=== PATIENT | female | born 1935 | race Caucasian/White ===

== ENCOUNTER 2017-10-10 16:36 | Emergency (ER) | payer MEDICARE, BC ==
[~2017-10-10] VITALS: Wt 72.6 kg
[~2017-10-10 16:36] MED LIST: ALDACTONE25 MG PO; ANTIVERT12.5 MG; ASPIR-LOW81 MG PO; B COMPLEX1 TA3 PO; BENADRYL25 MG PO; BENTYL10 MG PO; BONIVA; BONIVA1 MG/ML SC; BONIVA150 MG PO; CALCIUM 500500 M2 PO; CEPHALEXIN500 M1 PO; CIPRO500 MG PO; DEMEROL50 MG PO; DIOVAN320 MG PO; ETOLDOLAC400 MG PO; FOLIC ACID1 MG PO; GABAPENTIN100 M1 PO; KEFLEX500 MG PO; LASIX; LASIX20 MG PO; LEFLUNOMIDE20 M1 PO; LEUCOVORIN CALCI5 MG PO; METHOTREXATE2.5 MG PO; NEURONTIN100 MG PO; NEURONTIN300 MG PO; NEXIUM40 MG PO; NORCO 5-325 TA1 EACH PO; PREDNISONE10 MG PO; REMICADE100 MG IV; SYNTHROID; SYNTHROID,LEVO50 MCG PO; SYNTHROID0.05 MG PO; TEKTURNA150 MG PO; TEKTURNA300 MG PO; TOPROL XL25 MG PO; TOPROL XL50 MG PO; TYLENOL ARTHRI650 MG PO; TYLENOL PM EXTR1 TA1 PO; TYLENOL325 M2 PO; VITAMIN C500 MG PO; VITAMIN D400 I1 PO; VITAMIN E400 I1 PO; WELLCOVORIN5 MG PO
[2017-10-10 16:41] VITALS: BP 122/77
[2017-10-10] MEDS ORDERED: CYCLOBENZAPRINE5 M3 PO (19:05)
== END 2017-10-10 18:58 | disposition home or self-care (01) ==
LOC: ED 16:36
DX: M25.551 Pain in right hip (principal); M06.9 Rheumatoid arthritis, unspecified; Z98.890 Other specified postprocedural states; Z90.49 Acquired absence of other specified parts of digestive tract; Z79.82 Long term (current) use of aspirin; Z79.899 Other long term (current) drug therapy; Z88.8 Allergy status to other drugs, medicaments and biological substances; Z88.5 Allergy status to narcotic agent; Z88.6 Allergy status to analgesic agent

== ENCOUNTER 2017-11-21 12:24 | Emergency (ER) | payer MEDICARE, BC ==
[~2017-11-21] VITALS: Ht 165.1 cm; Wt 72.6 kg
[~2017-11-21 12:24] MED LIST changes: +CYCLOBENZAPRINE5 M3 PO
[2017-11-21 12:28] VITALS: BP 119/71
== END 2017-11-21 13:22 | disposition home or self-care (01) ==
LOC: ED 12:24
DX: S70.11XA Contusion of right thigh, initial encounter (principal); G89.29 Other chronic pain; M54.5 Low back pain; I10 Essential (primary) hypertension; E03.9 Hypothyroidism, unspecified; M06.9 Rheumatoid arthritis, unspecified; Z98.890 Other specified postprocedural states; Z79.82 Long term (current) use of aspirin; Z79.899 Other long term (current) drug therapy; Z90.49 Acquired absence of other specified parts of digestive tract; Z88.8 Allergy status to other drugs, medicaments and biological substances; Z88.1 Allergy status to other antibiotic agents; Z88.6 Allergy status to analgesic agent; Z88.5 Allergy status to narcotic agent; W19.XXXA Unspecified fall, initial encounter; Y93.89 Activity, other specified; Y92.89 Other specified places as the place of occurrence of the external cause; Y99.9 Unspecified external cause status

== ENCOUNTER 2017-12-28 09:04 | Emergency (ER) | payer MEDICARE, BC ==
[~2017-12-28] VITALS: Wt 54.4 kg
[2017-12-28] MEDS ORDERED: LIPITOR20 MG PO (09:17)
[2017-12-28] MEDS ORDERED: MOBIC15 MG PO (09:18)
[2017-12-28] MEDS ORDERED: NORCO 5-325 TA1 EACH PO (09:18)
[2017-12-28] MEDS ORDERED: POTASSIUM CHLO10 MEQ PO (09:19)
[2017-12-28] MEDS ORDERED: TYLENOL325 M2 PO (09:20)
[2017-12-28 09:47] LABS: BASO # 0.1 10*3/uL (0.0-0.1); BASO % 0.5 % (0.0-1.0); EOS # 0.2 10*3/uL (0.0-0.4); EOS % 1.2 % (1.0-4.0); HEMATOCRIT 35.9 % (37.0-47.0); LYMPH # 0.7 10*3/uL (1.3-4.4); LYMPH % 4.4 % (27.0-41.0); MEAN CORPUSCULAR HGB 29.7 pg (27.0-31.0); MEAN CORPUSCULAR HGB CONC 30.6 g/dl (33.0-37.0); MEAN PLATELET VOLUME 10.2 fl (9.6-12.3); MONO # 0.6 10*3/uL (0.1-1.0); MONO % 3.9 % (3.0-9.0); NEUT # 13.5 10*3/uL (2.3-7.9); NEUT % 88.8 % (47.0-73.0); NUCLEATED RED BLOOD CELL 0.1 10*3/uL (0.0-0.0); NUCLEATED RED BLOOD CELL 0.3 % (0.0-0.0); PLATELET COUNT AUTOMATED 271 10*3/uL (130-400); RED CELL DISTRI WIDTH 17.2 % (0-14.5); WHITE BLOOD COUNT 15.2 10*3/uL (4.8-10.8)
[2017-12-28 09:56] LABS: INTERNATIONAL NORM RATIO 0.9 (2.0-3.5)
[2017-12-28 10:03] LABS: ALBUMIN 2.5 gm/dl (3.1-4.5); ALKALINE PHOSPHATASE 63 U/L (45-117); BUN 16 mg/dl (7-24); CHLORIDE 104 mmol/L (98-107); CREATININE 0.84 mg/dL (0.55-1.02); LIPASE 167 U/L (73-393); POTASSIUM 3.6 mmol/L (3.5-5.1); SGOT/AST 25 IU/L (3-35); SGPT/ALT 27 U/L (12-78); SODIUM 139 mmol/L (136-145); TOTAL PROTEIN 6.3 gm/dL (6.4-8.2)
[2017-12-28 10:06] LABS: TROPONIN I 0.095 ng/ml (<0.045)
[2017-12-28 10:08] LABS: BILIRUBIN NEGATIVE (NEGATIVE); BLOOD NEGATIVE (NEGATIVE); CLARITY SL CLOUDY (CLEAR); COLOR YELLOW (YELLOW); GLUCOSE NEGATIVE (NEGATIVE); KETONE NEGATIVE (NEGATIVE); LEUKO ESTERASE 2+ (NEGATIVE); NITRITE NEGATIVE (NEGATIVE); UROBILINOGEN 0.2 E.U./dl (0.2-1.0)
[2017-12-28 10:19] LABS: BACTERIA 1+; EPITHELIAL CELLS 31-40; WBC 41-50 wbc/hpf (0-5)
[2017-12-28 14:42] VITALS: BP 123/63
== END 2017-12-28 14:50 | disposition short-term general hospital (02) ==
LOC: ED 09:04
PROVIDERS: Emergency Medicine
DX: A41.9 Sepsis, unspecified organism (principal); K57.80 Diverticulitis of intestine, part unspecified, with perforation and abscess without bleeding; N39.0 Urinary tract infection, site not specified; I10 Essential (primary) hypertension; E03.9 Hypothyroidism, unspecified; M06.9 Rheumatoid arthritis, unspecified; M81.0 Age-related osteoporosis without current pathological fracture; Z88.1 Allergy status to other antibiotic agents; Z88.8 Allergy status to other drugs, medicaments and biological substances; Z88.6 Allergy status to analgesic agent; Z79.899 Other long term (current) drug therapy; Z79.82 Long term (current) use of aspirin

== ENCOUNTER → 2018-03-11 | Outpatient (CLI) | payer MEDICARE, BC ==
[~2018-03-11] MED LIST changes: +CEFAZOLIN2 GM/100 M IV; +COUMADIN5 M2 PO; +LIPITOR20 MG PO; +MEGACE 40400 MG/10 PO; +MOBIC15 MG PO; +PAROXETINE20 MG PO; +POTASSIUM CHLO10 MEQ PO; +PROTONIX40 MG PO; +RISPERDAL0.25 MG PO; +SYNTHROID,LEVO88 MCG PO; -SYNTHROID0.05 MG PO; +VANCOMYCIN1 GM/1002 IV
== END | disposition home or self-care (01) ==
LOC: CT 07:54
DX: K86.89 Other specified diseases of pancreas (principal); M43.26 Fusion of spine, lumbar region; M47.897 Other spondylosis, lumbosacral region; N39.0 Urinary tract infection, site not specified; D64.9 Anemia, unspecified; E03.9 Hypothyroidism, unspecified; E78.5 Hyperlipidemia, unspecified; I48.91 Unspecified atrial fibrillation; E11.9 Type 2 diabetes mellitus without complications; I10 Essential (primary) hypertension; Z90.49 Acquired absence of other specified parts of digestive tract; Z93.3 Colostomy status

== ENCOUNTER 2018-03-20 21:31 | Inpatient (IN) | payer MEDICARE, BC ==
[~2018-03-20] VITALS: Ht 167.6 cm; Wt 70.0 kg
--- NOTE | ~2018-03-20 | PR ---
[place], [place] PROGRESS NOTE NAME: TEOFILO FERRARA UNIT #: [id number] ROOM: 422 DOCTOR: CHRISTIN VERDUGOSEPTEMBER BIRTHDATE: [birth year] DOS: 04/05/2018 SUBJECTIVE: The patient is being followed for an MRSA bacteremia, source not identified. Her BALDEMAR was negative. MRI of the lumbar spine did not reveal any infection. She also had a left knee aspiration and that culture was negative. She had a WBC tagged scan which did not show any localized site of infection. She remains on vancomycin and Ancef. She continues to have confusion and is a very poor historian and she is alert, responsive, eating chocolates and drinking Coke with her daughter. No nausea or vomiting. Her stool is per colostomy. She has been afebrile. No rashes. She does complain of pain of her entire left side. VITAL SIGNS: Show temperature 97.6, pulse 91, respirations 16, BP 115/58. LABORATORY DATA: Vancomycin trough 22.8, BUN 17, creatinine 0.93. PHYSICAL EXAMINATION: GENERAL: An 82-year-old pleasant female, confused, in no acute distress. HEENT: Normocephalic, no thrush. LUNGS: Clear to auscultation bilaterally. Respirations even and unlabored. HEART: Regular rhythm. No murmur appreciated. ABDOMEN: Soft, nondistended, nontender. Ostomy with stool. EXTREMITIES: No edema or deformities. Very mild effusion of the left knee. SKIN: Warm, dry, free of rashes. She does have a PICC in place. Dressing dry and intact. No signs of phlebitis, right upper extremity. ASSESSMENT: Methicillin-resistant Staphylococcus aureus bacteremia, etiology not identified. PLAN: At this point, she is to continue vancomycin and Ancef until 05/02/2018. She is to follow up with Dr. Rodriges as an outpatient. She is to be discharged in the next day or so. ALONDRA LUCINA WALLER [place], [place] PROGRESS NOTE NAME: TEOFILO FERRARA UNIT #: [id number] ROOM: 422 DOCTOR: CHRISTIN VERDUGOSEPTEMBER BIRTHDATE: [birth year] Hoa Rodriges MD CM:YOSELIN [id number] SEPTEMBER CHRISTIN VERDUGO 04/05/18 2035 interface
--- NOTE | ~2018-03-20 | PR ---
[place], [place] PROGRESS NOTE NAME: TEOFILO FERRARA UNIT #: [id number] ROOM: 422 DOCTOR: CHRISTIN VERDUGO,SEPTEMBER BIRTHDATE: [birth year] DOS: ADDENDUM Please flag that for co-signature by Dr. Rodriges. ALONDRA WALLER CNP Hoa Rodriges MD CM:YOSELIN [id number] ALONDRA WALLER CNP 04/05/182022 interface
--- NOTE | ~2018-03-20 | PR ---
[place], [place] PROGRESS NOTE NAME: TEOFILO FERRARA UNIT #: [id number] ROOM: 422 DOCTOR: ROQUE WILKINSNO MD BIRTHDATE: [birth year] DOS: 03/27/2018 SUBJECTIVE: The patient was seen today at her bedside, 03/27/2018, for followup of a BALDEMAR, which I did yesterday. She had the study done in order to evaluate an episode of bacteremia with MRSA. The source of this was never found. The BALDEMAR did not show any obvious evidence for endocarditis. The patient does not make [place] criteria for endocarditis either. The BALDEMAR was well tolerated and the patient denies any sore throat or sequelae. OBJECTIVE: VITAL SIGNS: Her pulse is 83 and regular, blood pressure 133/59. She is afebrile. NECK: Supple. She has no jugular distention. Carotids are full. LUNGS: Respirations are unlabored. Chest is clear. HEART: Has irregular rhythm and an S4 gallop, but no S3 or murmur. The PMI is not displaced. There is no precordial heave, lift or thrill. ABDOMEN: Soft and normally active. EXTREMITIES: Showed no edema aside from her left foot, which is mildly swollen. She had no scleral hemorrhages, subungual hemorrhages, or Randle spots. IMPRESSION: 1. Staph aureus bacteremia, etiology and source to be defined. 2. History of diverticular abscess requiring sigmoid resection and colostomy. 3. Type 2 non-ST elevation myocardial infarction during her hospitalization for a diverticular abscess. 4. Paroxysmal atrial fibrillation, first documented in 11/2017 with CHADS-VASc score of 6. The patient has had a DC cardioversion as of 12/10/2017. 5. Essential hypertension. 6. Type 2 diabetes mellitus. 7. Hyperlipidemia. 8. History of rheumatoid arthritis. 9. Pharmacologic stress test 12/12/2017 showed ejection fraction of 62% and no ischemia. PLAN: The patient should be continued on warfarin for stroke prophylaxis. No other cardiac workup or change in management is planned. We will remain available to see the patient if needed, but for now we will sign off. I thank the hospitalist physicians for asking our advice regarding her care. [place], [place] PROGRESS NOTE NAME: TEOFILO FERRARA UNIT #: [id number] ROOM: 422 DOCTOR: ROQUE WILKINSON MD BIRTHDATE: [birth year] ROQUE WILKINSON MD CM:PNTRANS [phone] ROQUE WILKINSON MD 03/27/18 181 interface
--- NOTE | ~2018-03-20 | EKG ---
[place], [place] ELECTROCARDIOGRAM REPORT NAME: TEOFILO FERRARA UNIT #: [id number] ROOM: 422 DOCTOR: EPIPHANY DRAFT REPORT BIRTHDATE: [birth year] [facility] Test Date: 2018-03-20 Test Time: 22:18:57 Pat Name: TEOFILO FERRARA Department: Room: 422 Gender: F Veterans' Coordinator: Stanton Guerin : 1935 Requested By: PRICILLA PEREZ Order Number: [id number] Reading MD: Avelino Adler MD Measurements Intervals [place] Rate: 107 P: -42 RI: 148 QRS: 45 QRSD: 89 T: 51 QT: 321 QTc: 429 Interpretive Statements Multifocal atrial tachycardia Borderline T abnormalities, anterior leads Electronically Signed On 03-21-2018 15:40:23 PDT by Avelino Adler MD CM:EKGRPT:ELECTROCARDIOGRAM REPORT [id number] PRICILLA PEREZ MD EPIPHANY DRAFT REPORT PRICILLA PEREZ MD
--- NOTE | ~2018-03-20 | CON ---
[place], [place] REPORT OF CONSULTATION NAME: [facility]ERRARA [id number] UNIT #: [id number] ROOM: 422 DOCTOR: ROQUE WILKINSON MD BIRTHDATE: [birth year] DOS: 03/25/2018 CARDIOLOGY CONSULTATION CHIEF COMPLAINT: Staphylococcal bacteremia. HISTORY OF PRESENT ILLNESS: The patient is an 82-year-old woman whom I saw at her bedside today at the request of the hospitalist service on 03/25/2018. She presented by ambulance from the [facility] where she had fever and disorientation. She did complain of some abdominal pain. A urinalysis in the Emergency Department did not show any source of infection and the patient is edentulous. Nonetheless, she did have evidence for systemic infection and in fact, blood cultures were positive for methicillin-resistant Staphylococcus aureus. She was seen by Infectious Disease, Dr. Dieter Harmon, on 03/25/2018. Dr. Harmon felt that the patient had staph bacteremia of unclear source. There was some concern that the patient had a history of back surgery and that her lumbar hardware could have become infected. An MRI, however, did not show any evidence for deep infection. An echocardiogram was of poor quality, but did not show any obvious abnormalities. We were asked to do a transesophageal echocardiogram to further evaluate her cardiac structures and help with choice and duration of therapy. The patient is awake and alert at this time. She knows who and where she is, but is slightly confused to the year. She denies any chest pain, shortness of breath, fevers or chills at this time. PAST MEDICAL HISTORY: Includes: 1. Normocytic anemia. 2. Metabolic encephalopathy. 3. Chronic back pain. 4. Status post lumbar back surgery. 5. Essential hypertension. 6. Hypothyroidism. 7. History of rheumatoid arthritis. 8. History of venous stasis dermatitis on both lower extremities. 9. History of breast biopsy, foot surgery, back surgery, cholecystectomy, and carpal tunnel surgery. 10. History of paroxysmal atrial fibrillation, first documented in November 2017. 11. History of diverticular abscess requiring sigmoid resection and colostomy, December 2017. MEDICATIONS: Prior to admission included acetaminophen p.r.n., aspirin 81 mg daily, atorvastatin 10 mg daily, furosemide 20 mg b.i.d., gabapentin 100 mg b.i.d., [place] 5/325 q.6 hours p.r.n., levothyroxine 88 mcg per day, megestrol 10 mL daily, metoprolol 50 mg b.i.d., pantoprazole 40 mg daily, paroxetine 20 mg daily, potassium 20 mEq daily, prednisone 10 mg daily, risperidone 0.25 mg at bedtime and warfarin 5 mg daily at bedtime. ALLERGIES: SHE LISTS ALLERGIES TO ALPRAZOLAM, AMLODIPINE, AMOXICILLIN, BENAZEPRIL, CELECOXIB, CEPHALEXIN, CLAVULANIC ACID, CLEMASTINE, CODEINE, [place], [place] REPORT OF CONSULTATION NAME: TEOFILO FERRARA UNIT #: [id number] ROOM: 422 DOCTOR: ROQUE WILKINSON MD BIRTHDATE: [birth year] DIAZEPAM, DOXEPIN, HOMATROPINE, HYDROCODONE, KETOPROFEN, LORACARBEF, RAMIPRIL, SULINDAC, TRAMADOL AND MECLOFENAMATE. REVIEW OF SYSTEMS: The patient denies diplopia, loss of vision. She denies focal weakness. She denies lightheadedness or syncope. She does have chronic back pain. She denies nausea or vomiting. She is eating well. She denies fevers, chills, sweats or recent weight change. She denies orthopnea or PND. She does have occasional palpitations. She denies hemoptysis or hematemesis. She denies blood in her stools or urine. She does note some chronic swelling in her feet. The remainder of review of systems is negative except as noted above. FAMILY HISTORY: Positive for hypertension, but not early coronary disease. SOCIAL HISTORY: The patient lives at a [facility]. She is not a smoker and does not consume alcohol. PHYSICAL EXAMINATION: GENERAL: The patient is an elderly, slender white female who is awake, alert and oriented to person and place. VITAL SIGNS: Pulse is 74 and regular, blood pressure is 126/67. She is afebrile. She weighs 70 kg and has a body mass index of 24.9. HEENT: Normocephalic and atraumatic. Extraocular muscles are intact. Sclerae are clear. Pupils are equal, round and react to light. The oral mucosa is moist. Tongue is midline. NECK: Supple. She has no jugular distention. Carotids are full. There are no bruits. She has no neck or supraclavicular masses and no thyromegaly. RESPIRATORY: Respirations are unlabored. Her chest is clear to auscultation and percussion. She has no presacral edema or chest wall tenderness. CARDIOVASCULAR: Her heart has a regular rhythm and S4 gallop, but no S3 or murmur. The PMI is not displaced. She has no precordial heave, lift or thrill. ABDOMEN: Soft and normally active. EXTREMITIES: Showed no subungual hemorrhages or Randle spots. Her left foot is mildly swollen. She has no scleral hemorrhages. IMPRESSIONS: 1. Staph aureus bacteremia (MRSA), etiology and source to be defined. 2. History of a diverticular abscess requiring sigmoid resection and colostomy. 3. Type 2 non-ST elevation myocardial infarction during hospitalization for diverticular abscess. 4. Paroxysmal atrial fibrillation, first diagnosed November 2017 with [id number] score of 6, status post DC cardioversion, 12/10/2017. 5. Essential hypertension. 6. Type 2 diabetes mellitus. 7. Hyperlipidemia. 8. History of rheumatoid arthritis. 9. Pharmacologic myocardial perfusion stress test, 12/12/2017, ejection fraction 62%, no ischemia. PLAN: I have discussed with the patient the fact that she had a serious blood infection and that we are concerned that she could have infected her heart. [place], [place] REPORT OF CONSULTATION NAME: TEOFILO FERRARA UNIT #: [id number] ROOM: 422 DOCTOR: ROQUE WILKINSON MD BIRTHDATE: [birth year] explained to her transesophageal echocardiography including the technique, potential side effects of sore throat, aspiration, esophageal tear, anesthesia reactions, bleeding, etc. The patient states that she understands the procedure and agrees to proceed. I made an attempt to call her daughter, but only got an answering machine. I certainly agree with the indication for a BALDEMAR and we will proceed as scheduled on morning at 9:30. Further recommendations will depend upon the results of the transesophageal echocardiogram. We thank the hospitalist physicians for asking our advice regarding the patient's care. ROQUE WILKINSON MD CM:CONSTR:REPORT OF CONSULTATION 1813 04/13/18 0721 interface
--- NOTE | ~2018-03-20 | PR ---
[place], [place] PROGRESS NOTE NAME: [facility]ERRARA [id number] UNIT #: [id number] ROOM: 422 DOCTOR: ROQUE WILKINSON MD BIRTHDATE: [birth year] DOS: 03/26/2018 HISTORY OF PRESENT ILLNESS: The patient was seen in the operating suite today 03/26/2018 for transesophageal echocardiography. She tolerated the procedure well and had no evidence for endocarditis. Valve functions and chamber dimensions were all normal with normal left ventricular function. Contrast study showed no evidence for shunting. PHYSICAL EXAMINATION: GENERAL: Today, she is awake, alert and oriented prior to anesthetic. VITAL SIGNS: Pulse is 69 and regular, blood pressure is 112/64. She is afebrile. She weighs 70.0 kilograms. NECK: Supple. She has no jugular distention. Carotids are full. LUNGS: Respirations are unlabored. CHEST: Clear. HEART: Has a regular rhythm with an S4 gallop, but no S3 or significant murmur. EXTREMITIES: Showed no edema. There were no subungual hemorrhages or Randle spots and no scleral hemorrhages. IMPRESSION: 1. Staphylococcal bacteremia (MRSA) etiology and source to be defined. 2. History of diverticular abscess requiring sigmoid resection and colostomy. 3. Type 2 non-ST elevation myocardial infarction noted during hospitalization for diverticular abscess. 4. Paroxysmal atrial fibrillation, first documented in November 2017 with CHADS-VASc score of 6. The patient did undergo DC cardioversion 12/10/2017. 5. Essential hypertension. 6. Type 2 diabetes mellitus. 7. Hyperlipidemia. 8. History of rheumatoid arthritis. 9. Pharmacologic myocardial perfusion stress test 12/12/2017 showed ejection fraction of 62% and no ischemia. The patient tolerated her BALDEMAR well. We will continue to follow her peripherally. No other cardiac workup is planned at this time. [facility] and I thank the hospitalist physicians for asking our advice regarding her care. [place], [place] PROGRESS NOTE NAME: TEOFILO FERRARA UNIT #: [id number] ROOM: 422 DOCTOR: ROQUE WILKINSON MD BIRTHDATE: [birth year] ROQUE WILKINSON MD CM:PNTRANS [phone] ROQUE WILKINSON MD 03/26/18 1041 interface
--- NOTE | ~2018-03-20 | PR ---
[place], [place] PROGRESS NOTE NAME: TEOFILO FERRARA UNIT #: [id number] ROOM: 422 DOCTOR: ANTWAN JOHNSON,KYMBERLY BIRTHDATE: [birth year] DOS: 04/05/2018 I agree with the assessment and plan made by the nurse practitioner, Tomeka English. I reviewed the labs and imaging and made the necessary changes in the note. Hoa Moncada MD CM:PNTRANS [phone] KYMBERLY MONCADA MD 04/07/182230 interface
[~2018-03-20 21:31] MED LIST changes: -CEFAZOLIN2 GM/100 M IV; -COUMADIN5 M2 PO; -MEGACE 40400 MG/10 PO; -PAROXETINE20 MG PO; -PROTONIX40 MG PO; -RISPERDAL0.25 MG PO; -VANCOMYCIN1 GM/1002 IV
[2018-03-20 21:34] VITALS: BP 106/53
[2018-03-20] MEDS ORDERED: MEGACE 40400 MG/10 PO (21:43)
[2018-03-20] MEDS ORDERED: PAROXETINE20 MG PO (21:44)
[2018-03-20] MEDS ORDERED: RISPERDAL0.25 MG PO (21:45)
[2018-03-20 22:33] LABS: BASO # 0.1 10*3/uL (0.0-0.1); BASO % 0.7 % (0.0-1.0); EOS # 0.3 10*3/uL (0.0-0.4); EOS % 1.8 % (1.0-4.0); HEMATOCRIT 35.1 % (37.0-47.0); LYMPH # 0.9 10*3/uL (1.3-4.4); LYMPH % 5.5 % (27.0-41.0); MEAN CELL VOLUME 87.8 fl (81.0-99.0); MEAN CORPUSCULAR HGB 27.5 pg (27.0-31.0); MEAN CORPUSCULAR HGB CONC 31.3 g/dl (33.0-37.0); MEAN PLATELET VOLUME 9.9 fl (9.6-12.3); MONO # 0.3 10*3/uL (0.1-1.0); MONO % 1.7 % (3.0-9.0); NEUT # 14.3 10*3/uL (2.3-7.9); NEUT % 89.7 % (47.0-73.0); PLATELET COUNT AUTOMATED 354 10*3/uL (130-400); RED CELL DISTRI WIDTH 16.9 % (0-14.5)
[2018-03-20 22:44] LABS: INTERNATIONAL NORM RATIO 3.3 (2.0-3.5)
[2018-03-20 22:52] LABS: ALBUMIN 2.6 gm/dl (3.1-4.5); ALKALINE PHOSPHATASE 54 U/L (45-117); BUN 14 mg/dl (7-24); CHLORIDE 110 mmol/L (98-107); LIPASE 272 U/L (73-393); POTASSIUM 3.2 mmol/L (3.5-5.1); SGOT/AST 18 IU/L (3-35); SGPT/ALT 19 U/L (12-78); SODIUM 141 mmol/L (136-145)
[2018-03-20 22:53] LABS: TROPONIN I 0.031 ng/ml (<0.045)
[2018-03-20 23:18] LABS: URINE AMPHETAMINES < 1000 (1000ng/ml); URINE BARBITURATES < 200 (200ng/ml); URINE BENZODIAZEPINES < 200 (200ng/ml); URINE CANNABINOIDS (THC) < 50 (50ng/ml); URINE COCAINE < 300 (300ng/ml); URINE METHADONE < 300 (300ng/ml); URINE OPIATES < 300 (300ng/ml); URINE PHENCYCLIDINE < 25 (25ng/ml)
[2018-03-20 23:38] VITALS: BP 94/55
[2018-03-20 23:54] LABS: BILIRUBIN NEGATIVE (NEGATIVE); BLOOD NEGATIVE (NEGATIVE); CLARITY CLEAR (CLEAR); COLOR YELLOW (YELLOW); GLUCOSE NEGATIVE (NEGATIVE); KETONE NEGATIVE (NEGATIVE); LEUKO ESTERASE NEGATIVE (NEGATIVE); NITRITE NEGATIVE (NEGATIVE); PH 6.5 (5.0-9.0); UROBILINOGEN 0.2 E.U./dl (0.2-1.0)
[2018-03-21 02:54] VITALS: BP 106/50
[2018-03-21 04:00] VITALS: BP 119/53
[2018-03-21] MEDS ORDERED: COUMADIN5 M2 PO (04:11)
[2018-03-21] MEDS ORDERED: PROTONIX40 MG PO (04:15)
[2018-03-21 06:07] LABS: ALBUMIN 2.4 gm/dl (3.1-4.5); ALKALINE PHOSPHATASE 52 U/L (45-117); BUN 12 mg/dl (7-24); CHLORIDE 110 mmol/L (98-107); CHOLESTEROL 69 mg/dL (<200); CREATININE 0.87 mg/dL (0.55-1.02); HDL CHOLESTEROL 33 mg/dl (40-60); LDL CHOLESTEROL 8 mg/dL (9-159); PHOSPHOROUS 2.6 mg/dL (2.5-4.9); POTASSIUM 3.6 mmol/L (3.5-5.1); SGOT/AST 19 IU/L (3-35); SGPT/ALT 18 U/L (12-78); SODIUM 141 mmol/L (136-145); TOTAL PROTEIN 5.4 gm/dL (6.4-8.2); TRIGLYCERIDES 139 mg/dl (<150); TROPONIN I 0.033 ng/ml (<0.045); VLDL CHOLESTEROL 28 mg/dL (6-40)
[2018-03-21 06:08] LABS: FREE T4 1.35 ng/dl (0.76-1.46)
[2018-03-21 06:17] LABS: HEMATOCRIT 32.9 % (37.0-47.0); HEMOGLOBIN 10.1 g/dl (12.0-16.0); MEAN CELL VOLUME 89.6 fl (81.0-99.0); MEAN CORPUSCULAR HGB 27.5 pg (27.0-31.0); MEAN CORPUSCULAR HGB CONC 30.7 g/dl (33.0-37.0); MEAN PLATELET VOLUME 10.2 fl (9.6-12.3); NUCLEATED RED BLOOD CELL 0.1 % (0.0-0.0); PLATELET COUNT AUTOMATED 370 10*3/uL (130-400); RED BLOOD COUNT 3.67 10*6/uL (4.10-5.10); RED CELL DISTRI WIDTH 17.2 % (0-14.5)
[2018-03-21 06:28] LABS: ACT PARTIAL THROMBO TIME 36.7 SECONDS (20.8-31.5); INTERNATIONAL NORM RATIO 3.9 (2.0-3.5)
[2018-03-21 07:15] LABS: BASOPHILS 1 % (0-1); PLATELET SUFFICIENCY NORMAL (NORMAL); SCHISTOCYTES FEW; TOTAL CELLS COUNTED 100 #CELLS
[2018-03-21 08:00] VITALS: BP 100/76
[2018-03-21 08:36] LABS: VITAMIN D, 25-HYDROXY 24.6 ng/mL (30-100)
[2018-03-21 12:00] VITALS: BP 98/68
[2018-03-21 16:00] VITALS: BP 107/52
[2018-03-21 20:00] VITALS: BP 109/57
[2018-03-22] VITALS: BP 117/59
[2018-03-22 08:00] VITALS: BP 126/66; BP 128/67
[2018-03-22 08:32] LABS: BASO # 0.2 10*3/uL (0.0-0.1); BASO % 1.1 % (0.0-1.0); EOS # 1.3 10*3/uL (0.0-0.4); EOS % 7.6 % (1.0-4.0); HEMATOCRIT 35.7 % (37.0-47.0); HEMOGLOBIN 11.1 g/dl (12.0-16.0); LYMPH # 1.7 10*3/uL (1.3-4.4); LYMPH % 10.2 % (27.0-41.0); MEAN CELL VOLUME 88.6 fl (81.0-99.0); MEAN CORPUSCULAR HGB 27.5 pg (27.0-31.0); MEAN CORPUSCULAR HGB CONC 31.1 g/dl (33.0-37.0); MEAN PLATELET VOLUME 9.9 fl (9.6-12.3); MONO # 0.9 10*3/uL (0.1-1.0); MONO % 5.2 % (3.0-9.0); NEUT # 12.7 10*3/uL (2.3-7.9); NEUT % 75.4 % (47.0-73.0); PLATELET COUNT AUTOMATED 318 10*3/uL (130-400); RED BLOOD COUNT 4.03 10*6/uL (4.10-5.10); RED CELL DISTRI WIDTH 17.2 % (0-14.5); WHITE BLOOD COUNT 16.8 10*3/uL (4.8-10.8)
[2018-03-22 08:39] LABS: INTERNATIONAL NORM RATIO 2.6 (2.0-3.5)
[2018-03-22 08:47] LABS: ALBUMIN 2.6 gm/dl (3.1-4.5); ALKALINE PHOSPHATASE 55 U/L (45-117); BUN 9 mg/dl (7-24); CHLORIDE 106 mmol/L (98-107); CREATININE 0.66 mg/dL (0.55-1.02); POTASSIUM 3.5 mmol/L (3.5-5.1); SGOT/AST 26 IU/L (3-35); SGPT/ALT 22 U/L (12-78); SODIUM 137 mmol/L (136-145); TOTAL PROTEIN 5.8 gm/dL (6.4-8.2)
[2018-03-22 12:00] VITALS: BP 107/67
[2018-03-22 16:00] VITALS: BP 140/64
[2018-03-22 20:00] VITALS: BP 123/61
[2018-03-23] VITALS: BP 111/63
[2018-03-23 08:00] VITALS: BP 125/85
[2018-03-23 09:14] LABS: INTERNATIONAL NORM RATIO 2.6 (2.0-3.5)
[2018-03-23 09:42] LABS: BASO # 0.1 10*3/uL (0.0-0.1); BASO % 0.9 % (0.0-1.0); EOS # 1.1 10*3/uL (0.0-0.4); EOS % 10.5 % (1.0-4.0); HEMATOCRIT 32.5 % (37.0-47.0); HEMOGLOBIN 10.4 g/dl (12.0-16.0); LYMPH # 1.7 10*3/uL (1.3-4.4); LYMPH % 16.3 % (27.0-41.0); MEAN CELL VOLUME 87.1 fl (81.0-99.0); MEAN CORPUSCULAR HGB 27.9 pg (27.0-31.0); MEAN PLATELET VOLUME 10.1 fl (9.6-12.3); MONO # 0.6 10*3/uL (0.1-1.0); MONO % 5.4 % (3.0-9.0); NEUT % 66.4 % (47.0-73.0); PLATELET COUNT AUTOMATED 296 10*3/uL (130-400); RED BLOOD COUNT 3.73 10*6/uL (4.10-5.10); RED CELL DISTRI WIDTH 16.9 % (0-14.5); WHITE BLOOD COUNT 10.5 10*3/uL (4.8-10.8)
[2018-03-23 10:04] LABS: ALBUMIN 2.3 gm/dl (3.1-4.5); ALKALINE PHOSPHATASE 51 U/L (45-117); BUN 8 mg/dl (7-24); CHLORIDE 107 mmol/L (98-107); POTASSIUM 3.5 mmol/L (3.5-5.1); SGOT/AST 25 IU/L (3-35); SGPT/ALT 20 U/L (12-78); SODIUM 138 mmol/L (136-145); TOTAL PROTEIN 5.6 gm/dL (6.4-8.2)
[2018-03-23 12:00] VITALS: BP 116/75
[2018-03-23 16:00] VITALS: BP 102/58
[2018-03-23 20:00] VITALS: BP 132/62
[2018-03-24] VITALS: BP 115/62
[2018-03-24 08:00] VITALS: BP 122/65
[2018-03-24 09:42] LABS: INTERNATIONAL NORM RATIO 2.2 (2.0-3.5)
[2018-03-24 12:00] VITALS: BP 125/77
[2018-03-24 16:00] VITALS: BP 126/67
[2018-03-24 20:00] VITALS: BP 111/71
[2018-03-25] VITALS: BP 115/65
[2018-03-25 08:00] VITALS: BP 115/85
[2018-03-25 08:02] LABS: BASO # 0.1 10*3/uL (0.0-0.1); BASO % 0.9 % (0.0-1.0); EOS # 1.1 10*3/uL (0.0-0.4); EOS % 8.3 % (1.0-4.0); HEMATOCRIT 34.6 % (37.0-47.0); HEMOGLOBIN 10.7 g/dl (12.0-16.0); LYMPH # 3.1 10*3/uL (1.3-4.4); LYMPH % 24.4 % (27.0-41.0); MEAN CELL VOLUME 87.2 fl (81.0-99.0); MEAN CORPUSCULAR HGB CONC 30.9 g/dl (33.0-37.0); MEAN PLATELET VOLUME 10.2 fl (9.6-12.3); MONO % 7.6 % (3.0-9.0); NEUT # 7.4 10*3/uL (2.3-7.9); PLATELET COUNT AUTOMATED 343 10*3/uL (130-400); RED BLOOD COUNT 3.97 10*6/uL (4.10-5.10); RED CELL DISTRI WIDTH 16.6 % (0-14.5); WHITE BLOOD COUNT 12.7 10*3/uL (4.8-10.8)
[2018-03-25 08:09] LABS: INTERNATIONAL NORM RATIO 2.6 (2.0-3.5)
[2018-03-25 08:21] LABS: ALBUMIN 2.5 gm/dl (3.1-4.5); ALKALINE PHOSPHATASE 67 U/L (45-117); BUN 10 mg/dl (7-24); CHLORIDE 105 mmol/L (98-107); CREATININE 0.73 mg/dL (0.55-1.02); POTASSIUM 3.2 mmol/L (3.5-5.1); SGOT/AST 30 IU/L (3-35); SGPT/ALT 29 U/L (12-78); SODIUM 140 mmol/L (136-145); TOTAL PROTEIN 6.1 gm/dL (6.4-8.2)
[2018-03-25 12:00] VITALS: BP 120/74
[2018-03-25 16:00] VITALS: BP 126/67
[2018-03-25 20:00] VITALS: BP 112/56
[2018-03-26] VITALS (9 sets, daily range): BP systolic 109–139; BP diastolic 40–69
[2018-03-26 06:50] LABS: BASO # 0.1 10*3/uL (0.0-0.1); BASO % 0.9 % (0.0-1.0); EOS # 1.1 10*3/uL (0.0-0.4); HEMATOCRIT 34.7 % (37.0-47.0); HEMOGLOBIN 10.6 g/dl (12.0-16.0); LYMPH # 3.2 10*3/uL (1.3-4.4); MEAN CELL VOLUME 87.6 fl (81.0-99.0); MEAN CORPUSCULAR HGB 26.8 pg (27.0-31.0); MEAN CORPUSCULAR HGB CONC 30.5 g/dl (33.0-37.0); MEAN PLATELET VOLUME 10.4 fl (9.6-12.3); MONO # 1.1 10*3/uL (0.1-1.0); MONO % 7.5 % (3.0-9.0); NEUT # 8.3 10*3/uL (2.3-7.9); PLATELET COUNT AUTOMATED 349 10*3/uL (130-400); RED BLOOD COUNT 3.96 10*6/uL (4.10-5.10); RED CELL DISTRI WIDTH 16.6 % (0-14.5); WHITE BLOOD COUNT 14.1 10*3/uL (4.8-10.8)
[2018-03-26 06:58] LABS: ALBUMIN 2.6 gm/dl (3.1-4.5); ALKALINE PHOSPHATASE 71 U/L (45-117); BUN 11 mg/dl (7-24); CHLORIDE 103 mmol/L (98-107); CREATININE 0.72 mg/dL (0.55-1.02); POTASSIUM 3.1 mmol/L (3.5-5.1); SGOT/AST 18 IU/L (3-35); SGPT/ALT 26 U/L (12-78); SODIUM 139 mmol/L (136-145); TOTAL PROTEIN 6.1 gm/dL (6.4-8.2)
[2018-03-26 07:14] LABS: INTERNATIONAL NORM RATIO 3.1 (2.0-3.5)
[2018-03-27] VITALS: BP 122/64
[2018-03-27 07:11] LABS: BASO # 0.1 10*3/uL (0.0-0.1); BASO % 0.8 % (0.0-1.0); EOS # 1.1 10*3/uL (0.0-0.4); EOS % 6.8 % (1.0-4.0); HEMATOCRIT 29.4 % (37.0-47.0); HEMOGLOBIN 9.2 g/dl (12.0-16.0); LYMPH # 3.3 10*3/uL (1.3-4.4); LYMPH % 20.1 % (27.0-41.0); MEAN CELL VOLUME 86.5 fl (81.0-99.0); MEAN CORPUSCULAR HGB 27.1 pg (27.0-31.0); MEAN CORPUSCULAR HGB CONC 31.3 g/dl (33.0-37.0); MEAN PLATELET VOLUME 10.7 fl (9.6-12.3); MONO # 1.3 10*3/uL (0.1-1.0); MONO % 7.8 % (3.0-9.0); NEUT # 10.2 10*3/uL (2.3-7.9); NEUT % 62.9 % (47.0-73.0); PLATELET COUNT AUTOMATED 342 10*3/uL (130-400); RED CELL DISTRI WIDTH 16.7 % (0-14.5); WHITE BLOOD COUNT 16.2 10*3/uL (4.8-10.8)
[2018-03-27 07:15] LABS: INTERNATIONAL NORM RATIO 3.7 (2.0-3.5)
[2018-03-27 07:20] LABS: ALBUMIN 2.4 gm/dl (3.1-4.5); ALKALINE PHOSPHATASE 66 U/L (45-117); BUN 9 mg/dl (7-24); CHLORIDE 104 mmol/L (98-107); CREATININE 0.66 mg/dL (0.55-1.02); POTASSIUM 3.3 mmol/L (3.5-5.1); SGOT/AST 16 IU/L (3-35); SGPT/ALT 22 U/L (12-78); SODIUM 139 mmol/L (136-145); TOTAL PROTEIN 5.9 gm/dL (6.4-8.2)
[2018-03-27 08:00] VITALS: BP 131/59
[2018-03-27 12:00] VITALS: BP 133/59
[2018-03-27 16:00] VITALS: BP 118/65
[2018-03-27 20:00] VITALS: BP 101/55
[2018-03-27 21:43] LABS: HEMATOCRIT 33.3 % (37.0-47.0); HEMOGLOBIN 10.6 g/dl (12.0-16.0); MEAN CELL VOLUME 86.3 fl (81.0-99.0); MEAN CORPUSCULAR HGB 27.5 pg (27.0-31.0); MEAN CORPUSCULAR HGB CONC 31.8 g/dl (33.0-37.0); MEAN PLATELET VOLUME 10.4 fl (9.6-12.3); PLATELET COUNT AUTOMATED 393 10*3/uL (130-400); RED BLOOD COUNT 3.86 10*6/uL (4.10-5.10); RED CELL DISTRI WIDTH 16.9 % (0-14.5); WHITE BLOOD COUNT 20.9 10*3/uL (4.8-10.8)
[2018-03-27 21:56] LABS: BUN 13 mg/dl (7-24); CHLORIDE 102 mmol/L (98-107); CREATININE 0.86 mg/dL (0.55-1.02); POTASSIUM 3.9 mmol/L (3.5-5.1); SODIUM 135 mmol/L (136-145)
[2018-03-27 22:02] LABS: PLATELET SUFFICIENCY NORMAL (NORMAL); TOTAL CELLS COUNTED 100 #CELLS
[2018-03-27 22:03] LABS: BURR CELLS FEW; POLYCHROMASIA SLIGHT
[2018-03-27 23:02] LABS: BILIRUBIN NEGATIVE (NEGATIVE); BLOOD NEGATIVE (NEGATIVE); CLARITY CLEAR (CLEAR); COLOR YELLOW (YELLOW); GLUCOSE NEGATIVE (NEGATIVE); KETONE NEGATIVE (NEGATIVE); LEUKO ESTERASE NEGATIVE (NEGATIVE); NITRITE NEGATIVE (NEGATIVE); SPECIFIC GRAVITY 1.015 (1.005-1.030); UROBILINOGEN 0.2 E.U./dl (0.2-1.0)
[2018-03-28 00:34] VITALS: BP 124/53
[2018-03-28 06:29] LABS: HEMATOCRIT 29.8 % (37.0-47.0); HEMOGLOBIN 9.5 g/dl (12.0-16.0); MEAN CELL VOLUME 85.9 fl (81.0-99.0); MEAN CORPUSCULAR HGB 27.4 pg (27.0-31.0); MEAN CORPUSCULAR HGB CONC 31.9 g/dl (33.0-37.0); MEAN PLATELET VOLUME 10.6 fl (9.6-12.3); PLATELET COUNT AUTOMATED 342 10*3/uL (130-400); RED BLOOD COUNT 3.47 10*6/uL (4.10-5.10); WHITE BLOOD COUNT 16.9 10*3/uL (4.8-10.8)
[2018-03-28 06:34] LABS: BUN 13 mg/dl (7-24); CHLORIDE 104 mmol/L (98-107); CREATININE 0.69 mg/dL (0.55-1.02); POTASSIUM 3.4 mmol/L (3.5-5.1); SODIUM 137 mmol/L (136-145)
[2018-03-28 06:50] LABS: INTERNATIONAL NORM RATIO 2.7 (2.0-3.5)
[2018-03-28 07:05] LABS: BASOPHILS 2 % (0-1); BURR CELLS FEW; PLATELET SUFFICIENCY NORMAL (NORMAL); POLYCHROMASIA SLIGHT; TOTAL CELLS COUNTED 100 #CELLS
[2018-03-28 07:06] LABS: OVALOCYTES FEW
[2018-03-28 08:00] VITALS: BP 123/61
[2018-03-28 08:08] LABS: RHEUMATOID ARTHRITIS FACTOR <10.0 IU/mL (0.0-13.9)
[2018-03-28 12:00] VITALS: BP 130/61
[2018-03-28 16:00] VITALS: BP 119/60
[2018-03-28 20:00] VITALS: BP 109/52
[2018-03-29] VITALS: BP 108/51
[2018-03-29 06:23] LABS: HEMATOCRIT 29.2 % (37.0-47.0); HEMOGLOBIN 9.2 g/dl (12.0-16.0); MEAN CELL VOLUME 85.1 fl (81.0-99.0); MEAN CORPUSCULAR HGB 26.8 pg (27.0-31.0); MEAN CORPUSCULAR HGB CONC 31.5 g/dl (33.0-37.0); MEAN PLATELET VOLUME 10.7 fl (9.6-12.3); PLATELET COUNT AUTOMATED 431 10*3/uL (130-400); RED BLOOD COUNT 3.43 10*6/uL (4.10-5.10); RED CELL DISTRI WIDTH 16.8 % (0-14.5); WHITE BLOOD COUNT 17.2 10*3/uL (4.8-10.8)
[2018-03-29 06:56] LABS: BUN 15 mg/dl (7-24); CHLORIDE 104 mmol/L (98-107); CREATININE 0.82 mg/dL (0.55-1.02); POTASSIUM 3.2 mmol/L (3.5-5.1); SODIUM 138 mmol/L (136-145)
[2018-03-29 06:58] LABS: INTERNATIONAL NORM RATIO 2.7 (2.0-3.5)
[2018-03-29 07:03] LABS: BASOPHILS 1 % (0-1); BURR CELLS FEW; OVALOCYTES FEW; PLATELET SUFFICIENCY HIGH (NORMAL); TOTAL CELLS COUNTED 100 #CELLS
[2018-03-29 07:04] LABS: POLYCHROMASIA SLIGHT
[2018-03-29 08:00] VITALS: BP 115/55
[2018-03-29 12:00] VITALS: BP 109/52
[2018-03-29 16:00] VITALS: BP 120/61
[2018-03-29 16:51] LABS: BF MACROPHAGES 20 %; BF NEUTROPHILS 80 %
[2018-03-29 17:07] LABS: BODY FLUID WBC 22313 /uL
[2018-03-29 20:00] VITALS: BP 117/58
[2018-03-30] VITALS: BP 112/61
[2018-03-30 07:19] LABS: BASO # 0.1 10*3/uL (0.0-0.1); BASO % 0.7 % (0.0-1.0); EOS # 0.5 10*3/uL (0.0-0.4); EOS % 2.5 % (1.0-4.0); HEMATOCRIT 29.2 % (37.0-47.0); HEMOGLOBIN 9.1 g/dl (12.0-16.0); LYMPH # 2.5 10*3/uL (1.3-4.4); LYMPH % 13.1 % (27.0-41.0); MEAN CELL VOLUME 85.6 fl (81.0-99.0); MEAN CORPUSCULAR HGB 26.7 pg (27.0-31.0); MEAN CORPUSCULAR HGB CONC 31.2 g/dl (33.0-37.0); MEAN PLATELET VOLUME 10.5 fl (9.6-12.3); MONO # 1.3 10*3/uL (0.1-1.0); NEUT # 14.5 10*3/uL (2.3-7.9); NEUT % 75.8 % (47.0-73.0); PLATELET COUNT AUTOMATED 441 10*3/uL (130-400); RED BLOOD COUNT 3.41 10*6/uL (4.10-5.10); RED CELL DISTRI WIDTH 16.6 % (0-14.5); WHITE BLOOD COUNT 19.1 10*3/uL (4.8-10.8)
[2018-03-30 07:33] LABS: BUN 15 mg/dl (7-24); CHLORIDE 102 mmol/L (98-107); CREATININE 0.74 mg/dL (0.55-1.02); SODIUM 135 mmol/L (136-145)
[2018-03-30 07:39] LABS: POTASSIUM 3.7 mmol/L (3.5-5.1)
[2018-03-30 08:00] VITALS: BP 132/62
[2018-03-30 12:00] VITALS: BP 130/64
[2018-03-30 16:00] VITALS: BP 133/63
[2018-03-30 16:08] LABS: ATYPICAL PANCA 1:20 titer (Neg:<1:20); CYTOPLASMIC (C-ANCA) <1:20 titer (Neg:<1:20)
[2018-03-30 20:00] VITALS: BP 147/67
[2018-03-31] VITALS: BP 131/54
[2018-03-31 06:39] LABS: BASO # 0.1 10*3/uL (0.0-0.1); BASO % 0.5 % (0.0-1.0); EOS # 0.5 10*3/uL (0.0-0.4); HEMATOCRIT 28.3 % (37.0-47.0); HEMOGLOBIN 9.1 g/dl (12.0-16.0); LYMPH % 17.7 % (27.0-41.0); MEAN CELL VOLUME 83.7 fl (81.0-99.0); MEAN CORPUSCULAR HGB 26.9 pg (27.0-31.0); MEAN CORPUSCULAR HGB CONC 32.2 g/dl (33.0-37.0); MEAN PLATELET VOLUME 9.9 fl (9.6-12.3); MONO # 1.2 10*3/uL (0.1-1.0); MONO % 7.3 % (3.0-9.0); NEUT # 11.8 10*3/uL (2.3-7.9); NEUT % 70.4 % (47.0-73.0); PLATELET COUNT AUTOMATED 539 10*3/uL (130-400); RED BLOOD COUNT 3.38 10*6/uL (4.10-5.10); RED CELL DISTRI WIDTH 16.5 % (0-14.5); WHITE BLOOD COUNT 16.7 10*3/uL (4.8-10.8)
[2018-03-31 06:52] LABS: BUN 18 mg/dl (7-24); CHLORIDE 100 mmol/L (98-107); CREATININE 0.87 mg/dL (0.55-1.02); POTASSIUM 3.2 mmol/L (3.5-5.1); SODIUM 135 mmol/L (136-145)
[2018-03-31 08:00] VITALS: BP 131/72
[2018-03-31 12:00] VITALS: BP 136/66
[2018-03-31 15:06] LABS: ACID FAST SPEC PROCESSING Direct Inoculation (.)
[2018-03-31 16:00] VITALS: BP 127/67
[2018-03-31 20:00] VITALS: BP 139/61
[2018-04-01] VITALS: BP 130/67
[2018-04-01 07:09] LABS: HEMATOCRIT 27.9 % (37.0-47.0); HEMOGLOBIN 8.8 g/dl (12.0-16.0); MEAN CELL VOLUME 84.5 fl (81.0-99.0); MEAN CORPUSCULAR HGB 26.7 pg (27.0-31.0); MEAN CORPUSCULAR HGB CONC 31.5 g/dl (33.0-37.0); MEAN PLATELET VOLUME 9.9 fl (9.6-12.3); PLATELET COUNT AUTOMATED 545 10*3/uL (130-400); RED CELL DISTRI WIDTH 16.3 % (0-14.5); WHITE BLOOD COUNT 18.3 10*3/uL (4.8-10.8)
[2018-04-01 07:29] LABS: BUN 17 mg/dl (7-24); CHLORIDE 103 mmol/L (98-107); POTASSIUM 3.4 mmol/L (3.5-5.1); SODIUM 137 mmol/L (136-145)
[2018-04-01 07:40] LABS: INTERNATIONAL NORM RATIO 7.6 (2.0-3.5)
[2018-04-01 07:55] LABS: BASOPHILS 2 % (0-1); TOTAL CELLS COUNTED 100 #CELLS
[2018-04-01 07:56] LABS: PLATELET SUFFICIENCY HIGH (NORMAL); POLYCHROMASIA SLIGHT; TOXIC GRANULATION MODERATE
[2018-04-01 08:00] VITALS: BP 110/60
[2018-04-01] MEDS ORDERED: CEFAZOLIN2 GM/100 M IV (11:22)
[2018-04-01] MEDS ORDERED: VANCOMYCIN1 GM/1002 IV (11:22)
[2018-04-01 12:00] VITALS: BP 139/96
[2018-04-01 13:17] LABS: INTERNATIONAL NORM RATIO 8.4 (2.0-3.5)
[2018-04-01 16:00] VITALS: BP 107/65; BP 130/50
[2018-04-01 20:00] VITALS: BP 129/60
[2018-04-02] VITALS: BP 119/55
[2018-04-02 06:14] LABS: HEMATOCRIT 28.1 % (37.0-47.0); HEMOGLOBIN 8.8 g/dl (12.0-16.0); MEAN CELL VOLUME 85.4 fl (81.0-99.0); MEAN CORPUSCULAR HGB 26.7 pg (27.0-31.0); MEAN CORPUSCULAR HGB CONC 31.3 g/dl (33.0-37.0); MEAN PLATELET VOLUME 9.8 fl (9.6-12.3); PLATELET COUNT AUTOMATED 551 10*3/uL (130-400); RED BLOOD COUNT 3.29 10*6/uL (4.10-5.10); RED CELL DISTRI WIDTH 16.6 % (0-14.5); WHITE BLOOD COUNT 16.6 10*3/uL (4.8-10.8)
[2018-04-02 06:23] LABS: BUN 13 mg/dl (7-24); CHLORIDE 100 mmol/L (98-107); CREATININE 0.86 mg/dL (0.55-1.02); POTASSIUM 3.4 mmol/L (3.5-5.1); SODIUM 135 mmol/L (136-145)
[2018-04-02 06:50] LABS: INTERNATIONAL NORM RATIO 7.8 (2.0-3.5)
[2018-04-02 07:10] LABS: TOTAL CELLS COUNTED 100 #CELLS
[2018-04-02 07:11] LABS: PLATELET SUFFICIENCY HIGH (NORMAL); POLYCHROMASIA SLIGHT
[2018-04-02 08:00] VITALS: BP 124/70
[2018-04-02 12:00] VITALS: BP 101/59
[2018-04-02 16:00] VITALS: BP 117/64
[2018-04-02 20:00] VITALS: BP 96/71
[2018-04-03] VITALS: BP 126/68
[2018-04-03 06:47] LABS: INTERNATIONAL NORM RATIO 6.4 (2.0-3.5)
[2018-04-03 06:57] LABS: HEMATOCRIT 27.1 % (37.0-47.0); HEMOGLOBIN 8.4 g/dl (12.0-16.0); MEAN CELL VOLUME 85.5 fl (81.0-99.0); MEAN CORPUSCULAR HGB 26.5 pg (27.0-31.0); MEAN PLATELET VOLUME 9.3 fl (9.6-12.3); PLATELET COUNT AUTOMATED 558 10*3/uL (130-400); RED BLOOD COUNT 3.17 10*6/uL (4.10-5.10); RED CELL DISTRI WIDTH 16.5 % (0-14.5); WHITE BLOOD COUNT 17.6 10*3/uL (4.8-10.8)
[2018-04-03 07:34] LABS: ACANTHOCYTES FEW; PLATELET SUFFICIENCY HIGH (NORMAL); POLYCHROMASIA SLIGHT; TOTAL CELLS COUNTED 100 #CELLS
[2018-04-03 08:13] VITALS: BP 109/54
[2018-04-03 11:39] VITALS: BP 111/74
[2018-04-03] MEDS ORDERED: NORCO 5-325 TA1 EACH PO (12:22)
[2018-04-03 15:47] VITALS: BP 118/56
[2018-04-03 20:00] VITALS: BP 103/65
[2018-04-04 01:25] VITALS: BP 117/62
[2018-04-04 08:00] VITALS: BP 130/72
[2018-04-04 11:39] LABS: INTERNATIONAL NORM RATIO 1.9 (2.0-3.5)
[2018-04-04 12:00] VITALS: BP 109/55
[2018-04-04 16:00] VITALS: BP 106/50
[2018-04-04 20:00] VITALS: BP 111/62
[2018-04-05] VITALS: BP 108/49
[2018-04-05 06:45] LABS: BUN 17 mg/dl (7-24); CREATININE 0.93 mg/dL (0.55-1.02)
[2018-04-05 06:48] LABS: INTERNATIONAL NORM RATIO 1.7 (2.0-3.5)
[2018-04-05 08:00] VITALS: BP 117/68
[2018-04-05 12:00] VITALS: BP 115/58
[2018-04-05 16:00] VITALS: BP 112/56
[2018-04-05 20:00] VITALS: BP 119/56
[2018-04-06] VITALS: BP 110/66
[2018-04-06 06:44] LABS: BUN 16 mg/dl (7-24); CHLORIDE 101 mmol/L (98-107); CREATININE 0.98 mg/dL (0.55-1.02); POTASSIUM 3.1 mmol/L (3.5-5.1); SODIUM 134 mmol/L (136-145)
[2018-04-06 07:20] LABS: INTERNATIONAL NORM RATIO 2.9 (2.0-3.5)
[2018-04-06 08:00] VITALS: BP 116/65
[2018-04-06 12:00] VITALS: BP 112/68
[2018-05-13 09:12] LABS: ACID FAST CULTURE Negative (.)
== END 2018-04-06 14:36 | disposition other institution (70) | DRG 871 ==
LOC: ED 21:31 → EDHOLD 03-21 02:44 → 4E 03-21 02:44
PROVIDERS: Emergency Medicine; Emergency Medicine Emergency Medical Services; Family Medicine; Internal Medicine; Orthopaedic Surgery
PROC: B24BZZ4 Ultrasonography of Heart with Aorta, Transesophageal (ICD-10-PCS; principal; 2018-03-26)
PROC: 0S9D3ZX Drainage of Left Knee Joint, Percutaneous Approach, Diagnostic (ICD-10-PCS; 2018-03-29)
PROC: 02HV33Z Insertion of Infusion Device into Superior Vena Cava, Percutaneous Approach (ICD-10-PCS; 2018-03-31)
DX: A41.9 Sepsis, unspecified organism (principal); I50.33 Acute on chronic diastolic (congestive) heart failure; G93.41 Metabolic encephalopathy; E43 Unspecified severe protein-calorie malnutrition; E87.2 Acidosis; K57.80 Diverticulitis of intestine, part unspecified, with perforation and abscess without bleeding; M80.072A Age-related osteoporosis with current pathological fracture, left ankle and foot, initial encounter for fracture; M80.88XA Other osteoporosis with current pathological fracture, vertebra(e), initial encounter for fracture; B95.62 Methicillin resistant Staphylococcus aureus infection as the cause of diseases classified elsewhere; E87.6 Hypokalemia; D64.9 Anemia, unspecified; M06.9 Rheumatoid arthritis, unspecified; G89.29 Other chronic pain; M54.5 Low back pain; E03.9 Hypothyroidism, unspecified; I11.0 Hypertensive heart disease with heart failure; M11.20 Other chondrocalcinosis, unspecified site; R79.1 Abnormal coagulation profile; M19.90 Unspecified osteoarthritis, unspecified site; M25.462 Effusion, left knee; E11.9 Type 2 diabetes mellitus without complications; E78.5 Hyperlipidemia, unspecified; I48.0 Paroxysmal atrial fibrillation; M11.262 Other chondrocalcinosis, left knee; M51.36 Other intervertebral disc degeneration, lumbar region; Z93.3 Colostomy status; Z88.8 Allergy status to other drugs, medicaments and biological substances; Z79.899 Other long term (current) drug therapy; Z79.82 Long term (current) use of aspirin; Z87.440 Personal history of urinary (tract) infections; Z90.49 Acquired absence of other specified parts of digestive tract; Z82.49 Family history of ischemic heart disease and other diseases of the circulatory system; Z68.24 Body mass index [BMI] 24.0-24.9, adult

== ENCOUNTER 2018-06-21 10:20 | Emergency (ER) | payer MEDICARE, BC ==
[~2018-06-21] VITALS: Ht 170.1 cm; Wt 63.5 kg
[~2018-06-21 10:20] MED LIST changes: -ASPIR-LOW81 MG PO; +ASPIRIN CHEWABL81 MG PO; +CEFAZOLIN2 GM/100 M IV; +COUMADIN5 M2 PO; +MEGACE 40400 MG/10 PO; +PAROXETINE20 MG PO; +PROTONIX40 MG PO; +RISPERDAL0.25 MG PO; +VANCOMYCIN1 GM/1002 IV
[2018-07-07] MEDS ORDERED: MACROBID100 M1 PO (03:54)
== END 2018-06-21 11:03 | disposition home or self-care (01) ==
LOC: ED 10:20
DX: Z48.00 Encounter for change or removal of nonsurgical wound dressing (principal); Z88.1 Allergy status to other antibiotic agents; Z88.6 Allergy status to analgesic agent; Z88.8 Allergy status to other drugs, medicaments and biological substances; Z79.899 Other long term (current) drug therapy; Z79.82 Long term (current) use of aspirin

== ENCOUNTER 2018-07-10 03:45 | Inpatient (IN) | payer MEDICARE, BC ==
[2018-07-10] VITALS (8 sets, daily range): BP systolic 96–121; BP diastolic 47–94
[~2018-07-10] VITALS: Ht 162.5 cm; Wt 66.3 kg
--- NOTE | ~2018-07-10 | PR ---
[place], [place] PROGRESS NOTE NAME: [facility]ERRARA [id number] UNIT #: [id number] ROOM: 420 DOCTOR: ROQUE WILKINSON MD BIRTHDATE: [birth year] DOS: 07/12/2018 SUBJECTIVE: The patient was seen at her bedside today 07/12/2018 for reassessment of her cardiac status. She is an 82-year-old resident of a [facility], who was brought to the hospital because of possible dehydration and inability to pass urine. In the hospital while on a monitor at 7:00 a.m. on 07/11/2018, she did have a single 8-beat run of wide complex tachycardia, which was presumably ventricular in origin. She does have a history of paroxysmal atrial fibrillation, but her monitor does not show any evidence for that. She did have an echocardiogram in 03/2018, which demonstrated normal left ventricular function. The patient states that she feels well today and denies chest pain, shortness of breath or palpitations. I reviewed the monitor at the central station and she has shown only sinus rhythm since yesterday. She has not had any recurrent ventricular arrhythmias. PHYSICAL EXAMINATION: VITAL SIGNS: Her pulse is 70 and regular, blood pressure is 128/64. She is afebrile. NECK: Supple. She has no jugular distention. Carotids are full. LUNGS: Respirations are unlabored. Chest is clear. HEART: Has a regular rhythm with an S4 gallop. ABDOMEN: Soft. EXTREMITIES: Showed no edema. LABORATORY DATA: Sodium is 143, potassium 3.9, CO2 of 20, chloride 113, BUN 14, creatinine 0.6, magnesium is 2.0. IMPRESSION: 1. Nonsustained ventricular tachycardia. 2. History of hypertension. 3. History of hypothyroidism. 4. History of paroxysmal atrial fibrillation. 5. History of diverticular abscess. PLAN: No other cardiac workup is planned at this time aside from review of a limited echo to make sure she has not experienced deterioration in left ventricular systolic function. If LV function remains normal, her risk of sustained ventricular tachycardia is small and I would just make sure that she continues to have normal electrolytes, especially potassium and magnesium. We will continue to follow her intermittently. I thank the hospitalist physicians for asking our advice regarding her care. [place], [place] PROGRESS NOTE NAME: TEOFILO FERRARA UNIT #: [id number] ROOM: 420 DOCTOR: ROQUE WILKINSON MD BIRTHDATE: [birth year] ROQUE WILKINSON MD CM:PNTRANS [phone] ROQUE WILKINSON MD 07/13/18 0935 interface
--- NOTE | ~2018-07-10 | CON ---
[place], [place] REPORT OF CONSULTATION NAME: TEOFILO FERRARA UNIT #: [id number] ROOM: 420 DOCTOR: CHRISTIN VERDUGO,SEPTEMBER BIRTHDATE: [birth year] DOS: 07/11/2018 HISTORY OF PRESENT ILLNESS: The patient is an 82-year-old female. [facility] due to inability to urinate. She states a Shepard catheter was not attempted at the facility, though she is not sure why. Her admitting UA has +3 leukocyte esterase and wbc's too numerous to count. She has had no fevers, feels well otherwise. No nausea or vomiting. Stool per colostomy. She also has a small wound in the left lower quadrant of the abdomen that she states she has had for at least a month that continues to drain. She is somewhat a poor historian. She was last hospitalized in March when she was treated for an MRSA bacteremia. She was treated with vancomycin and Ancef until 05/02. Urine culture has greater than 100,000 colonies of heavy gram-negative bacilli. Wound culture from the abdomen and groin also has gram-negative bacilli. Blood cultures remain sterile. Her MRSA screen is negative. PAST MEDICAL HISTORY: As above as well as chronic back pain, CHF, diverticulosis, hypertension, hypothyroidism, normocytic anemia, osteoporosis, paroxysmal AFib, pseudogout, rheumatoid arthritis, venostasis of lower extremities, breast biopsy, foot surgery, back surgery, carpal tunnel release, cholecystectomy. SOCIAL HISTORY: Nonsmoker, nondrinker, chronic [facility] resident. FAMILY MEDICAL HISTORY: Significant for hypertension. ALLERGIES: XANAX, LOTREL, AMOXICILLIN, CELECOXIB, CEPHALEXIN, CLAVULANIC ACID, CLEMASTINE, CODEINE, DIAZEPAM, DOXEPIN, HOMATROPINE, HYDROCODONE, KETOPROFEN, LORACARBEF, NISOLDIPINE, RAMIPRIL, SULINDAC, TRAMADOL, MECLOFENAMATE. CURRENT MEDICATIONS: Include Risperdal, Coumadin, IV vancomycin, prednisone, Micro-K, Paxil, Toprol, Synthroid, Neurontin, Pepcid, Lipitor, aspirin, Merrem, Zofran, milk of mag, Dulcolax. LABORATORY DATA: Admitting WBC 17.6, today down to 13.7; platelets 283. BUN 17, creatinine 0.71. BUN and sodium have improved since admission. Sodium 140, AST 48, ALT 88. REVIEW OF SYSTEMS: As above in history of present illness. PHYSICAL EXAMINATION: VITAL SIGNS: Temperature 97.1, pulse 73, respirations 18, BP 102/48. GENERAL: An 82-year-old female, in no acute distress, poor historian. HEAD, EARS, EYES, NOSE AND THROAT: Normocephalic, no thrush. NECK: No cervical lymphadenopathy. Edentulous. LUNGS: Crackles bilaterally. Respirations even and unlabored. HEART: Regular rhythm. No murmur appreciated. ABDOMEN: Soft, nondistended, nontender. Ostomy with small amount of stool. Just distal and lateral on the left to the ostomy. She has a small wound with thick braswell discharge expressible. No surrounding erythema, nontender. There is [place], [place] REPORT OF CONSULTATION NAME: TEOFILO FERRARA UNIT #: [id number] ROOM: 420 DOCTOR: CHRISTIN VERDUGOSEPTEMBER BIRTHDATE: [birth year] no induration. EXTREMITIES: No edema, clubbing or cyanosis. SKIN: Warm, dry, free of rashes, pale. ASSESSMENT: Urinary tract infection as well as volume contractions, volume contractions improving. She has gram-negative rods for her urine culture, we will stop the IV vancomycin. The left lower quadrant wound of the abdomen when reviewing the films of the CT of the abdomen and pelvis, it actually appears there may be some communication with the bowel from that on images 55, 56 and 57. It looks like it may be on physical exam along with the CT of the abdomen and pelvis it would have to ponder a possible small enterocutaneous fistula. Continue Merrem. Follow up on cultures and adjust antibiotics accordingly. ADDENDUM I agree with the assessment and plan made by the nurse practitioner, Tomeka Waller. I reviewed the labs and imaging. I made the necessary changes in the note. TOMEKA WALLER CNP Chloé Rodriges MD CM:CONSTR:REPORT OF CONSULTATION 1348 07/14/18 0459 interface
--- NOTE | ~2018-07-10 | PR ---
[place], [place] PROGRESS NOTE NAME: TEOFILO FERRARA [facility] #: [id number] UNIT #: [id number] ROOM: 420 DOCTOR: CHRISTIN VERDUGOSEPTEMBER BIRTHDATE: [birth year] DOS: 07/12/2018 SUBJECTIVE: The patient is being followed for urinary tract infection. Her urine is coming back with an ESBL E. coli. She also has a draining left lower quadrant wound, which may be a fistula, which is growing Proteus and ESBL E. coli. She is currently on Merrem. Her WBCs had been improving; however, they have bumped back up today. I suspect this may be due to her urinary retention. She was once again retaining urine this morning with she had to have a Shepard catheter again placed with immediate return of 800 mL of purulent urine as per discussion with nursing. She has been afebrile. She is alert, confused. Denies nausea, vomiting. Stools per colostomy. VITAL SIGNS: Temperature 97.9, pulse 69, respirations 18, BP 128/64. LABORATORY DATA: BUN 14, creatinine 0.6, AST 63, ALT 91. WBCs 14.1, platelets 291. Cultures as reviewed above. Blood cultures remain sterile. PHYSICAL EXAMINATION: GENERAL: An 82-year-old female, in no acute distress. HEAD, EYES, EARS, NOSE AND THROAT: Normocephalic, no thrush. LUNGS: Clear to auscultation bilaterally. Respirations even and unlabored. HEART: Regular rhythm. No murmur appreciated. ABDOMEN: Soft, nontender. Ostomy with stool. Purulent discharge from the small left lower quadrant wound with no surrounding signs of infection. Shepard catheter draining yellow urine with small amount of mucus and sediment. SKIN: Warm, dry, free of rashes. EXTREMITIES: No edema or cyanosis. ASSESSMENT: Extended-spectrum beta-lactamase Escherichia coli with persistent urinary retention. PLAN: At this point, we need to maintain adequate urinary drainage to help clear the infection as well as this is likely the source for her recurrent urinary infections and needs to be addressed by Urology; however, Urology is not available at this point in time in the hospital. Consideration needs to be given to referral as an outpatient, but at this point adequate urinary drainage is necessary. Continue the Merrem. Follow up on her final cultures. Dr. 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 ADDENDUM I agree with the assessment and plan made by the nurse practitioner, Tomeka Waller. I reviewed the labs and imaging and made the necessary changes in the note. TOMEKA WALLER CNP [place], [place] PROGRESS NOTE NAME: TEOFILO FERRARA UNIT #: [id number] ROOM: 420 DOCTOR: CHRISTIN VERDUGO BIRTHDATE: [birth year] Chloé Rodriges MD CM:PNTRANS [phone] TOMEKA WALLER CNP 07/14/18 0457 interface
--- NOTE | ~2018-07-10 | PR ---
[place], [place] PROGRESS NOTE [id number] UNIT #: [id number] ROOM: 420 DOCTOR: ROQUE WILKINSON MD BIRTHDATE: [birth year] DOS: 07/13/2018 CARDIOLOGY PROGRESS NOTE SUBJECTIVE: The patient was seen at her bedside today 07/13/2018 for followup of her paroxysmal atrial fibrillation and short run of nonsustained ventricular tachycardia, which was seen earlier this hospitalization. The patient was sleeping when I entered the room and was breathing easily. She appeared comfortable and in no distress. She denies any chest pain, shortness of breath, palpitations. I reviewed her monitor at the central station and she has had sinus rhythm since her short run of wide complex tachycardia 2 days ago. PHYSICAL EXAMINATION: VITAL SIGNS: Today, her pulse is 73 and regular, blood pressure 132/56. She is afebrile. NECK: Supple. She has no jugular distention. Carotids are full. LUNGS: Respirations are unlabored. Her chest is clear. HEART: Has regular rhythm with S4 gallop. ABDOMEN: Soft. She does have an ostomy in her left lower quadrant. EXTREMITIES: Showed no edema. DIAGNOSTIC DATA: I did review her echocardiogram. She has normal left ventricular size, wall motion and systolic function with moderate concentric left ventricular hypertrophy. Ejection fraction is between 55% and 60%. IVC was normal in size, indicating normal central venous pressures. LABORATORY DATA: Hemoglobin today is 11.6, white count 18,900, platelet count 354,000. Sodium 139, potassium 3.8, BUN 14, creatinine 0.57, magnesium 2.0. IMPRESSION: 1. Nonsustained ventricular tachycardia. 2. Normal left ventricular size with moderate concentric left ventricular hypertrophy. Regional wall motion and systolic function are normal. 3. History of paroxysmal atrial fibrillation. 4. History of hypertension. 5. History of diverticular abscess. PLAN: No other cardiac workup is indicated at this time and her prognosis from a cardiac standpoint appears to be good. I would continue to observe her electrolytes and make sure that we maintain normal potassium and magnesium levels. Cardiology will sign off at this time, but we will remain available to see her if needed. I thank the hospitalist physicians for asking our advice regarding her care. [place], [place] PROGRESS NOTE NAME: TEOFILO FERRARA UNIT #: [id number] ROOM: 420 DOCTOR: ROQUE WILKINSON MD BIRTHDATE: [birth year] ROQUE WILKINSON MD CM:PNTRANS [id number] ROQUE WILKINSON MD 07/14/18 0052 interface
--- NOTE | ~2018-07-10 | CON ---
[place], [place] REPORT OF CONSULTATION [id number] UNIT #: [id number] ROOM: 420 DOCTOR: ROQUE WILKINSON MD BIRTHDATE: [birth year] DOS: 07/11/2018 CARDIOLOGY CONSULTATION REASON FOR CONSULTATION: Nonsustained ventricular tachycardia. HISTORY OF PRESENT ILLNESS: The patient is an 82-year-old resident of a group home, who was brought to the hospital because of possible dehydration and inability to pass her urine. She has a history of an abdominal wound abscess which is positive for MRSA and a urine culture in the past was positive for pseudomonas. In the Emergency Room, she was felt to be dehydrated and hypotensive. She was given fluids and cultured. Urine culture was positive, but ID is pending. She was therefore admitted to the hospital for further management. While on a monitor early this morning at about 7:00 a.m., she did have an 8-beat run of nonsustained wide complex tachycardia, presumably ventricular in origin. We were therefore asked to reassess her cardiac status. PAST MEDICAL HISTORY: Includes: 1. Essential hypertension. 2. History of paroxysmal atrial fibrillation, first documented in 11/2017. 3. History of diverticular abscess requiring sigmoid resection and colostomy 12/2017. 4. Normocytic anemia. 5. History of metabolic encephalopathy. 6. Chronic back pain, status post lumbar surgery. 7. History of hypothyroidism. 8. History of rheumatoid arthritis. 9. History of venous stasis dermatitis, both lower extremities. 10. Hospitalization in 03/2018 with MRSA bacteremia. Transesophageal echocardiogram done at that time showed no evidence for endocarditis. MEDICATIONS: Prior to admission, acetaminophen p.r.n., aspirin 81 mg per day, atorvastatin 10 mg per day, bisacodyl 5 mg daily p.r.n. constipation, furosemide 20 mg b.i.d., gabapentin 100 mg b.i.d., levothyroxine 100 mcg daily, milk of magnesia p.r.n. constipation, metoprolol succinate 50 mg b.i.d., Macrobid 100 mg b.i.d., paroxetine 20 mg daily, potassium 20 mEq b.i.d., prednisone 10 mg daily, ranitidine 300 mg daily, Risperdal 0.25 mg at bedtime, warfarin 3.5 mg at bedtime to maintain an INR between 2 and 3 and Biofreeze gel q. 6 hours p.r.n. pain. ALLERGIES: SHE LISTS ALLERGIES TO ALPRAZOLAM, AMLODIPINE, AMOXICILLIN, BENAZEPRIL, CELECOXIB, CEPHALEXIN, CLAVULANIC ACID, CLEMASTINE, CODEINE, DIAZEPAM, DOXEPIN, HOMATROPINE, HYDROCODONE, KETOPROFEN, LORACARBEF, NISOLDIPINE, RAMIPRIL, SULINDAC AND TRAMADOL. FAMILY HISTORY: Positive for hypertension, but there is no history of early coronary disease. REVIEW OF SYSTEMS: The patient is somewhat confused and answers questions slowly. She denies diplopia, loss of vision, or focal weakness. She denies [place], [place] REPORT OF CONSULTATION NAME: TEOFILO FERRARA UNIT #: [id number] ROOM: [facility] DOCTOR: ROQUE WILKINSON MD BIRTHDATE: [birth year] lightheadedness. She does have chronic back pain. She denies current nausea or vomiting. She denies fevers, chills or sweats. She is not sure why she is in the hospital. She denies orthopnea or PND. She denies hemoptysis, hematemesis, nausea, vomiting or palpitations. She denies bleeding from any site. She denies any peripheral edema. The remainder of the review of systems is negative except as noted above. SOCIAL HISTORY: The patient resides in a group home. She does not consume alcohol or cigarettes. PHYSICAL EXAMINATION: GENERAL: The patient is an elderly white female who is awake and alert. She is disoriented to time and place. VITAL SIGNS: Pulse is 73 and regular, blood pressure is 102/48. She is afebrile. She weighs 66.3 kg and has a body mass index of 25.1. HEENT: Normocephalic and atraumatic. Extraocular muscles are intact. Sclerae are clear. Pupils are equal, round and react to light. The oral mucosa is moist. Tongue is midline. NECK: Supple. She has no jugular distention or hepatojugular reflux. Carotids are full. I heard no bruits. Respirations were unlabored. CHEST: Clear anteriorly and laterally. CARDIOVASCULAR: Her heart had a regular rhythm with an S4 gallop, but no S3 or murmur. The PMI was not displaced. There was no precordial heave, lift or thrill. ABDOMEN: Soft and normally active. She does have an ostomy bag in her right lower quadrant. EXTREMITIES: Showed no edema. There are no palpable cords or Homans sign. LABORATORY DATA: I reviewed the monitor strips. She did have one 8-beat run of wide complex tachycardia at a rate of about 200 beats per minute that resolved spontaneously. Rare isolated PVCs were also seen. IMPRESSIONS: 1. Nonsustained ventricular tachycardia. 2. History of hypertension. 3. History of hypothyroidism. 4. History of paroxysmal atrial fibrillation. 5. Venous stasis dermatitis. 6. History of diverticular abscess. PLAN: The patient's electrolytes and magnesium this morning were satisfactory. Her last echocardiogram in 03/2018 showed normal left ventricular function. Therefore, even though she did have a transient episode of nonsustained ventricular tachycardia, the importance of this is small. We will repeat her electrolytes in the morning and repeat an echocardiogram to make sure her left ventricular function has not deteriorated in the last several months. No other cardiac workup is planned at this time unless the patient develops further symptoms. We will continue to follow her intermittently with her primary physicians and I thank the hospitalist physicians for asking our advice regarding her care. [place], [place] REPORT OF CONSULTATION NAME: TEOFILO FERRARA UNIT #: [id number] ROOM: 420 DOCTOR: ROQUE WILKINSON MD BIRTHDATE: [birth year] ROQUE WILKINSON MD CM:CONSTR:REPORT OF CONSULTATION 1527 07/12/18 1410 interface
[~2018-07-10 03:45] MED LIST changes: +MACROBID100 M1 PO
[2018-07-10] MEDS ORDERED: BIOFREEZE118 ML T (03:51)
[2018-07-10] MEDS ORDERED: BISACODYL5 MG PO (03:51)
[2018-07-10] MEDS ORDERED: LEVOTHYROXINE100 MC1 PO (03:53)
[2018-07-10] MEDS ORDERED: MILK OF MA2400 MG/10 PO (03:55)
[2018-07-10] MEDS ORDERED: ZANTAC 300300 MG PO (03:57)
[2018-07-10] MEDS ORDERED: PREDNISONE20 M1 PO (03:58)
[2018-07-10 04:12] LABS: HEMATOCRIT 39.6 % (37.0-47.0); HEMOGLOBIN 12.1 g/dl (12.0-16.0); MEAN CELL VOLUME 86.5 fl (81.0-99.0); MEAN CORPUSCULAR HGB 26.4 pg (27.0-31.0); MEAN CORPUSCULAR HGB CONC 30.6 g/dl (33.0-37.0); MEAN PLATELET VOLUME 9.7 fl (9.6-12.3); NUCLEATED RED BLOOD CELL 0.1 % (0.0-0.0); PLATELET COUNT AUTOMATED 340 10*3/uL (130-400); RED BLOOD COUNT 4.58 10*6/uL (4.10-5.10); RED CELL DISTRI WIDTH 17.4 % (0-14.5); WHITE BLOOD COUNT 17.6 10*3/uL (4.8-10.8)
[2018-07-10 04:28] LABS: ALBUMIN 2.7 gm/dl (3.1-4.5); ALKALINE PHOSPHATASE 95 U/L (45-117); BUN 26 mg/dl (7-24); CHLORIDE 109 mmol/L (98-107); CREATININE 0.91 mg/dL (0.55-1.02); POTASSIUM 4.2 mmol/L (3.5-5.1); SGOT/AST 60 IU/L (3-35); SGPT/ALT 96 U/L (12-78); SODIUM 143 mmol/L (136-145); TOTAL PROTEIN 7.1 gm/dL (6.4-8.2)
[2018-07-10 04:31] LABS: BILIRUBIN NEGATIVE (NEGATIVE); BLOOD 1+ (NEGATIVE); CLARITY CLOUDY (CLEAR); COLOR YELLOW (YELLOW); GLUCOSE NEGATIVE (NEGATIVE); KETONE NEGATIVE (NEGATIVE); LEUKO ESTERASE 3+ (NEGATIVE); NITRITE POSITIVE (NEGATIVE); UROBILINOGEN 0.2 E.U./dl (0.2-1.0)
[2018-07-10 04:34] LABS: PLATELET SUFFICIENCY NORMAL (NORMAL); TOTAL CELLS COUNTED 100 #CELLS
[2018-07-10 04:41] LABS: BACTERIA 2+; RBC 21-30 rbc/hpf (0-2); WBC TNTC wbc/hpf (0-5)
[2018-07-10 06:52] LABS: INTERNATIONAL NORM RATIO 3.1 (2.0-3.5)
[2018-07-11] VITALS: BP 123/66
[2018-07-11 06:13] LABS: HEMOGLOBIN 10.2 g/dl (12.0-16.0); MEAN CELL VOLUME 86.7 fl (81.0-99.0); MEAN PLATELET VOLUME 9.9 fl (9.6-12.3); PLATELET COUNT AUTOMATED 283 10*3/uL (130-400); RED BLOOD COUNT 3.92 10*6/uL (4.10-5.10); RED CELL DISTRI WIDTH 17.6 % (0-14.5); WHITE BLOOD COUNT 13.7 10*3/uL (4.8-10.8)
[2018-07-11 06:23] LABS: BUN 17 mg/dl (7-24); CHLORIDE 113 mmol/L (98-107); CREATININE 0.71 mg/dL (0.55-1.02); POTASSIUM 3.9 mmol/L (3.5-5.1); SODIUM 140 mmol/L (136-145)
[2018-07-11 06:38] LABS: ALKALINE PHOSPHATASE 82 U/L (45-117); FREE T4 1.12 ng/dl (0.76-1.46); PHOSPHOROUS 2.6 mg/dL (2.5-4.9); SGOT/AST 48 IU/L (3-35); SGPT/ALT 88 U/L (12-78); TOTAL PROTEIN 5.6 gm/dL (6.4-8.2)
[2018-07-11 06:44] LABS: ACT PARTIAL THROMBO TIME 32.7 SECONDS (20.8-31.5); INTERNATIONAL NORM RATIO 2.5 (2.0-3.5)
[2018-07-11 06:45] LABS: BASOPHILS 1 % (0-1); BURR CELLS FEW; PLATELET SUFFICIENCY NORMAL (NORMAL); SCHISTOCYTES FEW; TOTAL CELLS COUNTED 100 #CELLS
[2018-07-11 06:46] LABS: OVALOCYTES FEW
[2018-07-11 08:00] VITALS: BP 111/47; BP 114/52
[2018-07-11 12:00] VITALS: BP 102/48
[2018-07-11 16:00] VITALS: BP 112/60
[2018-07-11 20:00] VITALS: BP 117/46
[2018-07-12] VITALS: BP 112/69
[2018-07-12 06:53] LABS: HEMATOCRIT 35.4 % (37.0-47.0); HEMOGLOBIN 10.5 g/dl (12.0-16.0); MEAN CELL VOLUME 87.8 fl (81.0-99.0); MEAN CORPUSCULAR HGB 26.1 pg (27.0-31.0); MEAN CORPUSCULAR HGB CONC 29.7 g/dl (33.0-37.0); MEAN PLATELET VOLUME 9.8 fl (9.6-12.3); PLATELET COUNT AUTOMATED 291 10*3/uL (130-400); RED BLOOD COUNT 4.03 10*6/uL (4.10-5.10); RED CELL DISTRI WIDTH 17.6 % (0-14.5); WHITE BLOOD COUNT 14.1 10*3/uL (4.8-10.8)
[2018-07-12 06:53] LABS: ALKALINE PHOSPHATASE 96 U/L (45-117); BUN 14 mg/dl (7-24); CHLORIDE 113 mmol/L (98-107); POTASSIUM 3.9 mmol/L (3.5-5.1); SGOT/AST 63 IU/L (3-35); SGPT/ALT 91 U/L (12-78); SODIUM 143 mmol/L (136-145); TOTAL PROTEIN 5.8 gm/dL (6.4-8.2)
[2018-07-12 07:28] LABS: BURR CELLS FEW; OVALOCYTES FEW; PLATELET SUFFICIENCY NORMAL (NORMAL); POLYCHROMASIA SLIGHT; TOTAL CELLS COUNTED 100 #CELLS
[2018-07-12 07:29] LABS: ACANTHOCYTES FEW
[2018-07-12 08:00] VITALS: BP 132/56
[2018-07-12 12:00] VITALS: BP 110/46
[2018-07-12 16:00] VITALS: BP 128/64
[2018-07-12 20:00] VITALS: BP 134/64
[2018-07-13] VITALS: BP 130/73
[2018-07-13 06:31] LABS: HEMATOCRIT 37.6 % (37.0-47.0); HEMOGLOBIN 11.6 g/dl (12.0-16.0); MEAN CORPUSCULAR HGB 26.5 pg (27.0-31.0); MEAN CORPUSCULAR HGB CONC 30.9 g/dl (33.0-37.0); MEAN PLATELET VOLUME 9.9 fl (9.6-12.3); PLATELET COUNT AUTOMATED 354 10*3/uL (130-400); RED BLOOD COUNT 4.37 10*6/uL (4.10-5.10); RED CELL DISTRI WIDTH 17.5 % (0-14.5); WHITE BLOOD COUNT 18.9 10*3/uL (4.8-10.8)
[2018-07-13 06:41] LABS: BUN 14 mg/dl (7-24); CHLORIDE 112 mmol/L (98-107); CREATININE 0.57 mg/dL (0.55-1.02); POTASSIUM 3.8 mmol/L (3.5-5.1); SODIUM 139 mmol/L (136-145)
[2018-07-13 07:13] LABS: TOTAL CELLS COUNTED 100 #CELLS
[2018-07-13 07:14] LABS: TOXIC GRANULATION SLIGHT
[2018-07-13 07:15] LABS: BURR CELLS MODERATE; OVALOCYTES FEW; PLATELET SUFFICIENCY NORMAL (NORMAL); POLYCHROMASIA SLIGHT
[2018-07-13 07:16] LABS: ACANTHOCYTES FEW
[2018-07-13 08:00] VITALS: BP 128/72
[2018-07-13 12:00] VITALS: BP 132/56
[2018-07-13 16:00] VITALS: BP 127/73
[2018-07-13 20:00] VITALS: BP 136/58
[2018-07-14] VITALS: BP 148/69
[2018-07-14 06:25] LABS: HEMATOCRIT 37.2 % (37.0-47.0); HEMOGLOBIN 11.7 g/dl (12.0-16.0); MEAN CELL VOLUME 85.1 fl (81.0-99.0); MEAN CORPUSCULAR HGB 26.8 pg (27.0-31.0); MEAN CORPUSCULAR HGB CONC 31.5 g/dl (33.0-37.0); MEAN PLATELET VOLUME 9.6 fl (9.6-12.3); PLATELET COUNT AUTOMATED 332 10*3/uL (130-400); RED BLOOD COUNT 4.37 10*6/uL (4.10-5.10); RED CELL DISTRI WIDTH 17.4 % (0-14.5); WHITE BLOOD COUNT 18.3 10*3/uL (4.8-10.8)
[2018-07-14 06:57] LABS: BASOPHILS 2 % (0-1); BURR CELLS MODERATE; PLATELET SUFFICIENCY NORMAL (NORMAL); TOTAL CELLS COUNTED 100 #CELLS
[2018-07-14 07:50] VITALS: BP 132/64
[2018-07-14 08:00] VITALS: BP 132/64
[2018-07-14] MEDS ORDERED: BETHANECHOL CHL25 MG PO (11:50)
[2018-07-14] MEDS ORDERED: NEURONTIN100 MG PO (11:50)
[2018-07-14] MEDS ORDERED: VITAMIN D32000 UNI1 PO (11:50)
[2018-07-14 12:00] VITALS: BP 117/60
[2018-07-14] MEDS ORDERED: SEPTDS PO (12:14)
== END 2018-07-14 15:45 | disposition other institution (70) | DRG 871 ==
LOC: ED 03:45 → EDHOLD 04:57 → 4E 04:57
PROVIDERS: Family Medicine; Internal Medicine; Student in an Organized Health Care Education/Training Program; ADMIT Internal Medicine
DX: A41.9 Sepsis, unspecified organism (principal); K65.1 Peritoneal abscess; N17.0 Acute kidney failure with tubular necrosis; E43 Unspecified severe protein-calorie malnutrition; K63.2 Fistula of intestine; L02.211 Cutaneous abscess of abdominal wall; N39.0 Urinary tract infection, site not specified; I47.2 Ventricular tachycardia; E86.0 Dehydration; R74.0 Nonspecific elevation of levels of transaminase and lactic acid dehydrogenase [LDH]; D72.810 Lymphocytopenia; E03.9 Hypothyroidism, unspecified; M81.0 Age-related osteoporosis without current pathological fracture; M06.9 Rheumatoid arthritis, unspecified; M54.9 Dorsalgia, unspecified; G89.29 Other chronic pain; B96.20 Unspecified Escherichia coli [E. coli] as the cause of diseases classified elsewhere; I48.0 Paroxysmal atrial fibrillation; I11.0 Hypertensive heart disease with heart failure; B95.62 Methicillin resistant Staphylococcus aureus infection as the cause of diseases classified elsewhere; K57.90 Diverticulosis of intestine, part unspecified, without perforation or abscess without bleeding; I50.9 Heart failure, unspecified; D64.9 Anemia, unspecified; Z90.49 Acquired absence of other specified parts of digestive tract; Z82.49 Family history of ischemic heart disease and other diseases of the circulatory system; Z88.1 Allergy status to other antibiotic agents; Z88.8 Allergy status to other drugs, medicaments and biological substances; Z88.5 Allergy status to narcotic agent; Z88.6 Allergy status to analgesic agent; Z79.82 Long term (current) use of aspirin; Z79.899 Other long term (current) drug therapy; Z79.52 Long term (current) use of systemic steroids; Z93.3 Colostomy status; Z88.0 Allergy status to penicillin

== ENCOUNTER 2018-07-19 07:37 | Emergency (ER) | payer MEDICARE, BC ==
[~2018-07-19] VITALS: Wt 72.6 kg
--- NOTE | ~2018-07-19 | EKG ---
[place], [place] ELECTROCARDIOGRAM REPORT NAME: TEOFILO FERRARA UNIT #: [id number] ROOM: DOCTOR: EPIPHANY DRAFT REPORT BIRTHDATE: [birth year] [facility] Test Date: 2018-07-19 Test Time: 08:06:52 Pat Name: TEOFILO FERRARA Department: Room: Gender: F Driver Examiner: : 1935 Requested By: SHANNON OCHOA Order Number: [id number] Reading MD: Measurements Intervals Kim Rate: 77 P: 16 AK: 155 QRS: 54 QRSD: 97 T: 43 QT: 402 QTc: 455 Interpretive Statements Sinus rhythm Atrial premature complex Abnormal R-wave progression, early transition Borderline abnrm T, anterolateral leads Compared to ECG 03/20/2018 22:18:57 Atrial premature complex(es) now present Ectopic atrial tachycardia, multifocal no longer present T-wave abnormality no longer present CM:EKGRPT:ELECTROCARDIOGRAM REPORT [id number] SHANNON CHACKO DRAFT REPORT SHANNON OCHOA MD
[~2018-07-19 07:37] MED LIST changes: +BETHANECHOL CHL25 MG PO; +BIOFREEZE118 ML T; +BISACODYL5 MG PO; +LEVOTHYROXINE100 MC1 PO; +MILK OF MA2400 MG/10 PO; +PREDNISONE20 M1 PO; +SEPTDS PO; +VITAMIN D32000 UNI1 PO; +ZANTAC 300300 MG PO
[2018-07-19 08:13] LABS: BASO # 0.1 10*3/uL (0.0-0.1); BASO % 0.6 % (0.0-1.0); EOS # 0.5 10*3/uL (0.0-0.4); EOS % 2.5 % (1.0-4.0); HEMATOCRIT 40.4 % (37.0-47.0); HEMOGLOBIN 12.4 g/dl (12.0-16.0); LYMPH # 4.5 10*3/uL (1.3-4.4); LYMPH % 22.3 % (27.0-41.0); MEAN CELL VOLUME 85.2 fl (81.0-99.0); MEAN CORPUSCULAR HGB 26.2 pg (27.0-31.0); MEAN CORPUSCULAR HGB CONC 30.7 g/dl (33.0-37.0); MEAN PLATELET VOLUME 9.4 fl (9.6-12.3); MONO # 1.2 10*3/uL (0.1-1.0); MONO % 6.2 % (3.0-9.0); NEUT # 13.5 10*3/uL (2.3-7.9); NEUT % 67.1 % (47.0-73.0); PLATELET COUNT AUTOMATED 453 10*3/uL (130-400); RED BLOOD COUNT 4.74 10*6/uL (4.10-5.10); RED CELL DISTRI WIDTH 17.3 % (0-14.5)
[2018-07-19 08:23] LABS: ACT PARTIAL THROMBO TIME 32.7 SECONDS (20.8-31.5); INTERNATIONAL NORM RATIO 3.6 (2.0-3.5)
[2018-07-19 08:29] LABS: ALBUMIN 2.6 gm/dl (3.1-4.5); ALKALINE PHOSPHATASE 116 U/L (45-117); BUN 23 mg/dl (7-24); CHLORIDE 106 mmol/L (98-107); CREATININE 1.06 mg/dL (0.55-1.02); POTASSIUM 3.8 mmol/L (3.5-5.1); SGOT/AST 29 IU/L (3-35); SGPT/ALT 51 U/L (12-78); SODIUM 141 mmol/L (136-145); TOTAL PROTEIN 7.3 gm/dL (6.4-8.2)
[2018-07-19 08:30] LABS: TROPONIN I 0.028 ng/ml (<0.045)
[2018-07-19 08:34] VITALS: BP 130/80
== END 2018-07-19 09:13 | disposition home or self-care (01) ==
LOC: ED 07:37
PROVIDERS: Emergency Medicine
DX: R05 Cough (principal); R06.02 Shortness of breath; D72.829 Elevated white blood cell count, unspecified; R32 Unspecified urinary incontinence; R79.1 Abnormal coagulation profile; M06.9 Rheumatoid arthritis, unspecified; E03.9 Hypothyroidism, unspecified; I48.0 Paroxysmal atrial fibrillation; I11.0 Hypertensive heart disease with heart failure; I50.9 Heart failure, unspecified; M81.0 Age-related osteoporosis without current pathological fracture; G62.9 Polyneuropathy, unspecified; Z79.01 Long term (current) use of anticoagulants; Z88.8 Allergy status to other drugs, medicaments and biological substances; Z88.1 Allergy status to other antibiotic agents; Z88.6 Allergy status to analgesic agent; Z79.899 Other long term (current) drug therapy; Z79.82 Long term (current) use of aspirin

== ENCOUNTER 2019-01-05 18:21 | Inpatient (IN) | payer MEDICARE, BC, MEDICAID ==
[~2019-01-05] VITALS: Ht 165.1 cm; Wt 60.9 kg
--- NOTE | ~2019-01-05 | PR ---
[place], [place] PROGRESS NOTE NAME: TEOFILO FERRARA UNIT #: [id number] ROOM: 528 DOCTOR: CHRISTIN VERDUGO BIRTHDATE: [birth year] DOS: 01/10/2019 SUBJECTIVE: The patient is an 83-year-old female who is being followed for an E. coli septicemia and UTI. Her repeat blood cultures from the remained sterile. She is currently on Azactam, her antibiotics will be switched to ertapenem. She has already had a script written for that upon discharge. She is doing well. Denies any nausea or vomiting. Stools per colostomy. No fevers. No rash or itch. No pain. OBJECTIVE: VITAL SIGNS: Temperature 98.2, pulse 75, respirations 18, BP 163/76. LABORATORY DATA: No new labs today other than PT/INR. PHYSICAL EXAMINATION: GENERAL: An 83-year-old female, in no acute distress. HEENT: Normocephalic, no thrush. LUNGS: Clear to auscultation bilaterally. Respirations even and unlabored. HEART: Regular rhythm. No murmur appreciated. ABDOMEN: Soft, nontender, nondistended. Ostomy appliance in place. EXTREMITIES: No edema or deformity. SKIN: Warm, dry, free of rashes. Shepard catheter draining clear yellow urine. ASSESSMENT: Escherichia coli septicemia and complicated urinary tract infection. PLAN: Continue Azactam, anticipate changing over to ertapenem at discharge. The patient can be discharged from an ID perspective. ADDENDUM I agree with the assessment and plan made by the nurse practitioner on 01/10/2019. I reviewed the labs and imaging, made the necessary changes in the note. SEPTEMBER LUCINA WALLER [place], [place] PROGRESS NOTE NAME: TEOFILO FERRARA UNIT #: [id number] ROOM: 528 DOCTOR: CHRISTIN VERDUGO BIRTHDATE: [birth year] Chloé Rodriges MD CM:PNOMERO [id number] SEPTEMBER CHRISTIN [facility] 01/12/19 0445 interface
--- NOTE | ~2019-01-05 | CON ---
[place], [place] REPORT OF CONSULTATION NAME: TEOFILO FERRARA UNIT #: [id number] ROOM: 528 DOCTOR: KYMBERLY RODRIGES MD BIRTHDATE: [birth year] DOS: 01/06/2019 REASON FOR CONSULTATION: UTI with bacteremia. CHIEF COMPLAINT: Fever, chills, dysuria. HISTORY OF PRESENT ILLNESS: This is an 83-year-old female well known to Infectious Disease service from her past admission. She has history of recurrent UTIs. 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 Yuen and recommended to do conservative management at that time. During this admission, she does have high-grade fevers with a leukocytosis of 16.4 on admission. Her blood cultures from 01/05/2019, 3 out of 4 bottles are growing gram-negative bacilli and urine cultures as of 01/05/2019, heavy gram-negative bacteremia. From 12/20/2018, she had a Citrobacter freundii with 25,000 colonies that was multidrug resistant organism. Before that she had Proteus mirabilis, which had a better susceptibility profile back in June when she was seen by us, she had ESBL E. coli and Pseudomonas also in the past. Currently, she is on aztreonam because of her multiple allergy history. Levaquin was also on board by the primary care doctors and ID has been consulted for further management. PAST MEDICAL HISTORY: Significant for CHF, chronic back pain, diverticulosis, perforation and abscess after diverticulitis leading to colostomy placement, osteoporosis, pseudogout, rheumatoid arthritis. PAST SURGICAL HISTORY: Breast biopsies, foot surgeries, back surgery, carpal tunnel release surgery, cholecystectomy, intestinal surgeries and colostomy. SOCIAL HISTORY: Nonsmoker, nonalcoholic, no illicit drug use. FAMILY HISTORY: Noncontributory. ALLERGIES: EXTENSIVE ALLERGIC HISTORY: SHE DOES NOT KNOW HER ALLERGY TO THE PENICILLINS, WHICH INCLUDE CEPHALOSPORINS WELL. Rest as per the EMR. HOME MEDICATIONS: Also reviewed. She is on 10 mg daily of prednisone. REVIEW OF SYSTEMS: A 12-point review of systems has been done. Pertinent negative and positives included in HPI, rest are noncontributory. PHYSICAL EXAMINATION: CURRENT VITAL SIGNS: Temperature 98.0, pulse rate 85, respiratory rate 18, blood pressure 121/62, oxygen saturation 97% on 2 liters of oxygen. GENERAL: The patient is alert and oriented x 3, not in acute distress. HEENT: Atraumatic, normocephalic. PERRLA, EOMI. ENT: No external lesions seen. NECK: Trachea midline without lesions. No ulcerations. HEART: S1, S2 normal. No murmurs, rubs or gallops. RESPIRATORY: Air entry bilaterally equal. No wheeze or crackles. [place], [place] REPORT OF CONSULTATION NAME: TEOFILO FERRARA UNIT #: [id number] ROOM: 528 DOCTOR: KYMBERLY RODRIGES MD BIRTHDATE: [birth year] ABDOMEN: Soft, diffusely tender to palpation. EXTREMITIES: No pedal edema. NEUROLOGIC: Grossly intact. LABORATORY DATA AND IMAGING: As mentioned in HPI. ASSESSMENT: 1. Complicated urinary tract infection. 2. Gram-negative bacteremia from above. 3. Rheumatoid arthritis, on chronic steroid dependence with 10 mg of prednisone daily. 4. 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 PLAN: At this time, repeat CT abdomen and pelvis with contrast. 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 Follow the blood cultures. Continue on aztreonam for now. Discontinue the Levaquin. Once the blood cultures are finalized, we can further deescalate antibiotics. Thank you for your consult. Please call for any questions. Kymberly Rodriges MD CM:CONSTR:REPORT OF CONSULTATION 44 01/07/19199 interface
--- NOTE | ~2019-01-05 | EKG ---
[place], [place] ELECTROCARDIOGRAM REPORT NAME: TEOFILO FERRARA UNIT #: [id number] ROOM: 528 DOCTOR: RICCO DRAFT REPORT BIRTHDATE: [birth year] [facility] Test Date: 2019-01-05 Test Time: 19:07:40 Pat Name: TEOFILO FERRARA Department: Room: 528 Gender: F Pharmacy General Manager: Avelino Bautista : 1935 Requested By: RICARDO ROBERTS PA-C Order Number: [id number] Reading MD: Dawna Clemons Measurements Intervals Lane Rate: 95 P: 0 OK: 148 QRS: 69 QRSD: 81 T: 45 QT: 262 QTc: 330 Interpretive Statements Sinus tachycardia Atrial premature complexes Compared to ECG 07/19/2018 08:06:52 Sinus rhythm no longer present Electronically Signed On 01-06-2019 8:06:33 PDT by Dawna Clemons CM:EKGRPT:ELECTROCARDIOGRAM REPORT 06 [phone] RICARDO CHACKO DRAFT REPORT RICARDO ROBERTS PA-C
--- NOTE | ~2019-01-05 | PR ---
[place], [place] PROGRESS NOTE [id number] UNIT #: [id number] ROOM: 528 DOCTOR: CHRISTIN VERDUGOSEPTEMBER BIRTHDATE: [birth year] DOS: 01/09/2019 SUBJECTIVE: She is a pleasant 83-year-old female who is being followed for UTI with sepsis. She had positive blood and urine cultures for Escherichia coli. She is currently on Azactam, which she is tolerating without issue. She is alert and oriented, feels well. She had been having some pain with her Shepard catheter, but that has improved since I changed it earlier today. Denies any nausea or vomiting. Stool is per colostomy. No fevers or chills. Her only complaint is she is still hungry after dinner. LABORATORY DATA: Cultures as reviewed above. WBC is 10.1, platelets 212. BUN is 15 and creatinine 0.92. PHYSICAL EXAMINATION: VITAL SIGNS: Temperature 99.0, pulse 85, respirations 18, BP 157/85. GENERAL: An 83-year-old female, in no acute distress. HEAD, EYES, EARS, NOSE AND THROAT: Normocephalic, no thrush. LUNGS: Diminished bilaterally. Respirations even and unlabored. HEART: Regular rhythm. ABDOMEN: Soft, nondistended, nontender. Ostomy appliance is in place. Shepard catheter is draining clear yellow urine. EXTREMITIES: No edema. SKIN: Warm, dry, free of rashes. She has ecchymosis of bilateral upper extremities and a PICC line in place in the right upper extremity, which is dressed. ASSESSMENT: Urinary tract infection with Escherichia coli septicemia. PLAN: She is currently on Azactam, which she is to continue but she will be given a script for ertapenem to complete a total of 14 days of antibiotics. ADDENDUM I agree with the assessment and plan. I reviewed the labs and imaging, made the necessary changes in the note. made the necessary changes in the note. SEPTEMBER LUCINA WALLER [place], [place] PROGRESS NOTE NAME: TEOFILO FERRARA UNIT #: [id number] ROOM: 528 DOCTOR: CHRISTIN VERDUGO,SEPTEMBER BIRTHDATE: [birth year] Chloé Rodriges MD CM:PNTRANS 57 [phone] CHRISTIN VERDUGO 01/12/19 1717 interface
[~2019-01-05 18:21] MED LIST changes: +COUMADIN2 M1 PO; -COUMADIN5 M2 PO
[2019-01-05 18:31] VITALS: BP 157/71
[2019-01-05 18:56] VITALS: BP 169/76
--- NOTE | 2019-01-05 19:02 | NUR ---
NURSE TO NURSE GIVEN.
[2019-01-05 19:07] LABS: HEMATOCRIT 40.8 % (37.0-47.0); HEMOGLOBIN 12.4 g/dl (12.0-16.0); MEAN CELL VOLUME 90.1 fl (81.0-99.0); MEAN CORPUSCULAR HGB 27.4 pg (27.0-31.0); MEAN CORPUSCULAR HGB CONC 30.4 g/dl (33.0-37.0); MEAN PLATELET VOLUME 10.7 fl (9.6-12.3); PLATELET COUNT AUTOMATED 242 10*3/uL (130-400); RED BLOOD COUNT 4.53 10*6/uL (4.10-5.10); RED CELL DISTRI WIDTH 17.2 % (0-14.5); WHITE BLOOD COUNT 16.4 10*3/uL (4.8-10.8)
[2019-01-05 19:17] LABS: ACT PARTIAL THROMBO TIME 32.2 SECONDS (20.0-32.1); INTERNATIONAL NORM RATIO 3.1 (2.0-3.5)
[2019-01-05 19:24] LABS: ALBUMIN 2.6 gm/dl (3.1-4.5); ALKALINE PHOSPHATASE 87 U/L (45-117); BUN 13 mg/dl (7-24); CHLORIDE 109 mmol/L (98-107); CREATININE 1.01 mg/dL (0.55-1.02); LIPASE 81 U/L (73-393); SGOT/AST 28 IU/L (3-35); SGPT/ALT 50 U/L (12-78); SODIUM 141 mmol/L (136-145); TOTAL PROTEIN 6.5 gm/dL (6.4-8.2)
[2019-01-05 19:25] LABS: TROPONIN I 0.022 ng/ml (<0.045)
[2019-01-05 19:29] LABS: BILIRUBIN NEGATIVE (NEGATIVE); BLOOD 3+ (NEGATIVE); CLARITY CLOUDY (CLEAR); COLOR YELLOW (YELLOW); GLUCOSE NEGATIVE (NEGATIVE); KETONE NEGATIVE (NEGATIVE); LEUKO ESTERASE 3+ (NEGATIVE); NITRITE POSITIVE (NEGATIVE); UROBILINOGEN 0.2 E.U./dl (0.2-1.0)
[2019-01-05 19:36] LABS: ACANTHOCYTES FEW; BASOPHILS 1 % (0-1); BURR CELLS MODERATE; OVALOCYTES FEW; PLATELET SUFFICIENCY NORMAL (NORMAL); TOTAL CELLS COUNTED 100 #CELLS
[2019-01-05 19:37] LABS: WBC TNTC wbc/hpf (0-5)
[2019-01-05 19:46] VITALS: BP 139/87
--- NOTE | 2019-01-05 20:21 | NUR ---
INPATIENT ROOM NOT AVAILABLE AT THIS TIME. NURSE REPORTS IT SHOULD BE READY IN 15 MINUTES.
[2019-01-05 20:40] VITALS: BP 145/79
--- NOTE | 2019-01-05 20:40 | NUR ---
A 83, admitted to , under the services of CHARLES Gerardo DO with a diagnosis of SEPSIS, UTI. Chief complaint is FEVER, LOWER BACK PAIN, DYSURIA, AND LETHARGY. Patient arrived via stretcher from ER. Monitor applied. Initial assessment completed. Vital signs taken and recorded. CHARLES GERARDO DO notified of admission to the unit. Orders received. See assessment for past medical history, medications and allergies. Patient and/or family oriented to unit. [facility]. Clothing/patient valuable form completed. FELICIA WOODSON
[2019-01-05] MEDS ORDERED: Ipratropium Brom3 ML INH (20:55)
[2019-01-05] MEDS ORDERED: LEVOFLOXACIN500 MG PO (20:55)
[2019-01-05] MEDS ORDERED: MIRALAX POWDER17 G1 PO (21:04)
[2019-01-05] MEDS ORDERED: NYSTATIN OINTME30 GM T (21:05)
[2019-01-05] MEDS ORDERED: SCOT-TUSSI10 MG/5 ML PO (21:06)
--- NOTE | 2019-01-05 21:22 | NUR ---
GIVEN PT'S DAUGHTER'S NUMBER TO CALL TO VERIFY PMH, ETC. ALFREDO HERNANDEZ [phone]
--- NOTE | 2019-01-05 21:33 | NUR ---
SPOKE TO TRAN AT [facility] PER 'S REQUEST. PER TRAN, PT WAS TREATED WITH PO CIPRO FROM DECEMBER 14- FOR +URINE CULTURE ON DECEMBER 10 FOR PROTEUS MIRABILIS (HEAVY > 100,000). +URINE CULTURE FROM DECEMBER 20 SHOWED CITROBACTER FREUNDII (LIGHT < 25,000) & PT WAS NOT TREATED FOR THIS. STARTED PO LEVAQUIN LAST NIGHT (01/04) WHEN PT'S TEMPERATURE SPIKED. UPDATED. STATES HE WILL RELAY INFO TO .
--- NOTE | 2019-01-05 22:45 | NUR ---
'S ANSWERING SERVICE CALLED REGARDING CONSULT. PT INFO & CALL BACK PHONE NUMBER LEFT WITH WEARING APPAREL ASSEMBLER.
--- NOTE | 2019-01-05 23:06 | NUR ---
CALLED BACK. DISCUSSED PATIENT'S PREVIOUS URINE CULTURES FROM DECEMBER 10 & DECEMBER 20. ALSO DISCUSSED ELEVATED TEMPERATURE ON ARRIVAL & ALLERGIES. INSTRUCTED TO ORDER 1 GRAM AZTREONAM TID STAT SO THAT ONE DOSE IS GIVEN TONIGHT. [facility] FACILITY. [facility] CALLED TO GET MEDICATION VERIFIED RY. NURSING JOINT CUTTER NOTIFIED OF NEEDING MEDICATION.
[2019-01-06] VITALS: BP 121/62
[2019-01-06 06:46] LABS: BASO # 0.1 10*3/uL (0.0-0.1); BASO % 0.4 % (0.0-1.0); EOS # 0.3 10*3/uL (0.0-0.4); EOS % 2.3 % (1.0-4.0); HEMATOCRIT 40.7 % (37.0-47.0); HEMOGLOBIN 12.3 g/dl (12.0-16.0); LYMPH # 1.1 10*3/uL (1.3-4.4); LYMPH % 7.2 % (27.0-41.0); MEAN CELL VOLUME 90.2 fl (81.0-99.0); MEAN CORPUSCULAR HGB 27.3 pg (27.0-31.0); MEAN CORPUSCULAR HGB CONC 30.2 g/dl (33.0-37.0); MEAN PLATELET VOLUME 10.9 fl (9.6-12.3); MONO # 0.6 10*3/uL (0.1-1.0); MONO % 3.9 % (3.0-9.0); NEUT # 12.6 10*3/uL (2.3-7.9); NEUT % 85.6 % (47.0-73.0); PLATELET COUNT AUTOMATED 229 10*3/uL (130-400); RED BLOOD COUNT 4.51 10*6/uL (4.10-5.10); RED CELL DISTRI WIDTH 17.2 % (0-14.5); WHITE BLOOD COUNT 14.8 10*3/uL (4.8-10.8)
--- NOTE | 2019-01-06 06:55 | NUR ---
NOTIFIED OF +BLOOD CULTURES FOR GNB. DISCUSSED MALVIYA ON & ALREADY ORDERED AZTREONAM TID. INSTRUCTED TO ORDER ANOTHER SET OF BLOOD CULTURES.
[2019-01-06 07:13] LABS: CREATININE 1.08 mg/dL (0.55-1.02); FREE T4 1.41 ng/dl (0.76-1.46); POTASSIUM 3.6 mmol/L (3.5-5.1)
[2019-01-06 07:20] LABS: THYROID STIM HORMONE (HS) 0.967 uIU/ml (0.358-4.75)
[2019-01-06 08:00] VITALS: BP 148/72
--- NOTE | 2019-01-06 08:44 | NUR ---
Nursing screen received and chart reviewed. Patient admitted from skilled nursing with UTI and lethargy. If patient has a
--- NOTE | 2019-01-06 08:49 | NUR ---
Nursing screen received and chart reviewed. Patient admitted with UTI and lethargy from intermediate. If patient should have a decline in ADLs or functional mobility then refer to OT for further assessment. Thank you. Aaliyah Rutledge OTR/l
--- NOTE | 2019-01-06 09:00 | NUR ---
PHYSICAL THERAPY Nursing screen received. Physical therapy orders received. Thank you. Rita Steinberg,PT,DPT
--- NOTE | 2019-01-06 09:15 | NUR ---
IV ZOFRAN GIVEN FOR C/O NAUSEA. WILL CONT TO MONITOR. CALL LIGHT IN REACH.
--- NOTE | 2019-01-06 10:15 | NUR ---
IV GIOVANNY EFF. WILL CONT TO MONITOR. CALL LIGHT IN REACH.
[2019-01-06 12:00] VITALS: BP 151/75
--- NOTE | 2019-01-06 15:10 | NUR ---
Patient is short term skilled at the [facility], she is ok to return when medically stable for discharge.
[2019-01-06 16:00] VITALS: BP 148/76
[2019-01-06 20:00] VITALS: BP 145/77
--- NOTE | 2019-01-06 20:21 | NUR ---
PATIENT AWAKE/ALERT/ORIENTED X3 AT TIME OF ASSESSMENT. C/O INTERMITTENT ABDOMINAL PAIN RATED 8/10. CURRENTLY DRINKNING ORAL CONTRAST FOR CT AB/PELV. NO FURTHER COMPLAINTS. BED IN LOW POSITION, WHEELS LOCKED, CALL LIGHT IN REACH
[2019-01-07] VITALS: BP 156/82
[2019-01-07 06:33] LABS: BASO # 0.1 10*3/uL (0.0-0.1); BASO % 0.4 % (0.0-1.0); EOS # 0.1 10*3/uL (0.0-0.4); EOS % 0.9 % (1.0-4.0); HEMATOCRIT 38.3 % (37.0-47.0); HEMOGLOBIN 11.9 g/dl (12.0-16.0); LYMPH # 1.3 10*3/uL (1.3-4.4); LYMPH % 10.3 % (27.0-41.0); MEAN CELL VOLUME 88.2 fl (81.0-99.0); MEAN CORPUSCULAR HGB 27.4 pg (27.0-31.0); MEAN CORPUSCULAR HGB CONC 31.1 g/dl (33.0-37.0); MEAN PLATELET VOLUME 11.3 fl (9.6-12.3); MONO # 0.9 10*3/uL (0.1-1.0); MONO % 6.6 % (3.0-9.0); NEUT # 10.6 10*3/uL (2.3-7.9); NEUT % 81.1 % (47.0-73.0); PLATELET COUNT AUTOMATED 236 10*3/uL (130-400); RED BLOOD COUNT 4.34 10*6/uL (4.10-5.10); RED CELL DISTRI WIDTH 16.9 % (0-14.5); WHITE BLOOD COUNT 13.1 10*3/uL (4.8-10.8)
[2019-01-07 07:03] LABS: BUN 18 mg/dl (7-24); CHLORIDE 106 mmol/L (98-107); CREATININE 1.03 mg/dL (0.55-1.02); POTASSIUM 3.2 mmol/L (3.5-5.1); SODIUM 139 mmol/L (136-145)
[2019-01-07 07:09] LABS: INTERNATIONAL NORM RATIO 2.1 (2.0-3.5)
[2019-01-07 08:00] VITALS: BP 150/80
--- NOTE | 2019-01-07 09:08 | NUR ---
PHYSICAL THERAPY Physical therapy evaluation complete. Full evaluation to follow. Moderate (81970) evaluation complexity per chart review and evaluation. Patient was admitted from [facility] for SNF and recommend return to SNF at discharge from this facility. Thank you. Rita Steinberg,PT,DPT
[2019-01-07 12:00] VITALS: BP 151/86
[2019-01-07] MEDS ORDERED: ERTAPENEM1 GM IV (15:54)
[2019-01-07 16:00] VITALS: BP 147/80
[2019-01-07 20:00] VITALS: BP 133/71
--- NOTE | 2019-01-07 20:05 | NUR ---
PATIENT RESTING COMFORTABLY IN BED AT THIS TIME. C/O HAVING A GILL. EDUCATED PATIENT ON WHY SHE HAS THIS. VOICED UNDERSTANDING. PLEASANT/COOPERATIVE WITH CARE. A&OX3 AT THIS TIME. HAS PERIODS OF CONFUSION. BED IN LOW POSITION, WHEELS LOCKED, CALL LIGHT IN REACH.
[2019-01-08] VITALS: BP 136/71
[2019-01-08 06:32] LABS: BASO % 0.4 % (0.0-1.0); EOS # 0.3 10*3/uL (0.0-0.4); EOS % 3.4 % (1.0-4.0); HEMOGLOBIN 11.6 g/dl (12.0-16.0); LYMPH % 19.6 % (27.0-41.0); MEAN CELL VOLUME 88.6 fl (81.0-99.0); MEAN CORPUSCULAR HGB CONC 30.5 g/dl (33.0-37.0); MEAN PLATELET VOLUME 11.1 fl (9.6-12.3); MONO # 0.5 10*3/uL (0.1-1.0); NEUT % 70.9 % (47.0-73.0); PLATELET COUNT AUTOMATED 207 10*3/uL (130-400); RED BLOOD COUNT 4.29 10*6/uL (4.10-5.10); RED CELL DISTRI WIDTH 16.9 % (0-14.5); WHITE BLOOD COUNT 9.9 10*3/uL (4.8-10.8)
[2019-01-08 06:42] LABS: BUN 17 mg/dl (7-24); CHLORIDE 109 mmol/L (98-107); CREATININE 1.02 mg/dL (0.55-1.02); POTASSIUM 3.7 mmol/L (3.5-5.1); SODIUM 141 mmol/L (136-145)
[2019-01-08 07:13] LABS: INTERNATIONAL NORM RATIO 2.7 (2.0-3.5)
--- NOTE | 2019-01-08 08:42 | NUR ---
Patient is short term skilled at the [facility]. Faxed clinical updates and script for Ertapenem 1GM IV daily for 14 days. Facility is checking cost on this antibiotic. will follow.
[2019-01-08 08:48] VITALS: BP 136/68
--- NOTE | 2019-01-08 10:44 | NUR ---
CRITICAL LAB RESULT BLOOD CULTURE FROM 16TH AEROBIC BOTTLE SHOWS ECOLI. NOTIFIED PHYSICIAN.
[2019-01-08 12:00] VITALS: BP 151/83
[2019-01-08 14:08] VITALS: BP 140/72
--- NOTE | 2019-01-08 14:37 | NUR ---
PHYSICAL THERAPY Patient seen this pm 1:1 for therapy visit and was supine in bed upon therapist arrival. Patient had a family friend present this afternoon and continuous O2-2L via NC. Patient transfers supine to sit EOB with MIN A, tolerating static EOB sit x several minutes, CGA x 1. Patient performed multiple sit to stand transfers APRON OPERATOR/MOD, demonstrating increased difficulty secondary to POOR transfer technique. Patient received v/c to improve technique and completed several additional transfers with smoother initial rise and increased confidence. Patient returned to supine in bed and remained with call light, tray table,telephone and bed alarm activated for safety. Will continue per POC as tolerated, total treatment time 14 minutes. Bandar Wilson, REGIONAL SALES REPRESENTATIVE
[2019-01-08 16:00] VITALS: BP 140/65
--- NOTE | 2019-01-08 18:54 | NUR ---
PATIENT TOLERATED ANTIBIOTICS WELL, VERY PLEASANT AND COOPERATIVE. DENIES PAIN, RESTING WELL
[2019-01-08 20:00] VITALS: BP 149/80
--- NOTE | 2019-01-08 20:24 | NUR ---
NOTIFIED DR OWENS OF NEEDING A USE ORDER FOR PATIENTS PICC LINE.
--- NOTE | 2019-01-08 21:50 | NUR ---
PATIENT MEDICATD WITH PRN TYLENOL ORDERED FOR C/O RIGHT GROIN PAIN RATED 8/10
[2019-01-09] VITALS (7 sets, daily range): BP systolic 138–163; BP diastolic 74–98
[2019-01-09 06:25] LABS: BASO % 0.3 % (0.0-1.0); EOS # 0.3 10*3/uL (0.0-0.4); EOS % 2.8 % (1.0-4.0); HEMATOCRIT 35.7 % (37.0-47.0); HEMOGLOBIN 10.9 g/dl (12.0-16.0); LYMPH # 2.1 10*3/uL (1.3-4.4); MEAN CORPUSCULAR HGB 27.2 pg (27.0-31.0); MEAN CORPUSCULAR HGB CONC 30.5 g/dl (33.0-37.0); MONO # 0.7 10*3/uL (0.1-1.0); MONO % 6.9 % (3.0-9.0); NEUT # 6.9 10*3/uL (2.3-7.9); NEUT % 68.1 % (47.0-73.0); PLATELET COUNT AUTOMATED 212 10*3/uL (130-400); RED BLOOD COUNT 4.01 10*6/uL (4.10-5.10); RED CELL DISTRI WIDTH 16.7 % (0-14.5); WHITE BLOOD COUNT 10.1 10*3/uL (4.8-10.8)
[2019-01-09 06:48] LABS: BUN 15 mg/dl (7-24); CHLORIDE 109 mmol/L (98-107); CREATININE 0.92 mg/dL (0.55-1.02); POTASSIUM 3.4 mmol/L (3.5-5.1); SODIUM 141 mmol/L (136-145)
[2019-01-09 07:16] LABS: INTERNATIONAL NORM RATIO 4.2 (2.0-3.5)
--- NOTE | 2019-01-09 10:00 | NUR ---
IV HEP LOCK REMOVED. NO PROBLEMS OR COMPLICATIONS ORDER TO USE PICC IN PLACE DOMINGUEZ PAZ OVCT STUDENT, HADLEY ESTRADA OVCT INSTRUSTOR
--- NOTE | 2019-01-09 14:06 | NUR ---
C/O PAIN TO FROIN/GILL CATH AREA. OLD BLOOD O INSERTION SITE NOTED ALONG WITH SMALL AMOUNTS OF BRIGHT RED BLOOD WHEN WIPPING AREA WITH MOIST CLOTH. CURRENT GILL CATH IS SIZE 18FR FROM 01/07. NOTIFIED OF FINDINGS/COMPLAINTS. ORDERD TO REMOVE CURRENT GILL AND REPLACE WITH 16FR.
--- NOTE | 2019-01-09 14:49 | NUR ---
16F martins inserted per policy. 50cc of clear yellow urine upon insertion. Cath secured on leg. Patient Tolerated well. Sofiya Griffin OVCT, Ifrah Jackson OVCT instructor.
--- NOTE | 2019-01-09 17:17 | NUR ---
BSG 186. REFUSED COVERAGE.
[2019-01-10] VITALS: BP 153/78
--- NOTE | 2019-01-10 00:28 | NUR ---
RESTING IN BED WITHOUT C/O'S. PICC LINE INTACT KRISTINE. HOB ELEVATED. SIDE RAILS UP X'S 2. CALL THI IN REACH. NO DISTRESS NOTED.
--- NOTE | 2019-01-10 04:10 | NUR ---
RESTING IN BED WITH EYES CLOSED. APPEARS TO BE SLEEPING.
--- NOTE | 2019-01-10 06:12 | NUR ---
APPEARS TO HAVE SLEPT WELL. REMAINS WIHTOUT C/O'S. ALERT WHEN AWAKE. PICC LINE INTACT KRISTINE. CONDITION GUARDED.
[2019-01-10 07:00] LABS: INTERNATIONAL NORM RATIO 3.5 (2.0-3.5)
[2019-01-10 08:00] VITALS: BP 164/84
[2019-01-10 12:00] VITALS: BP 149/79
[2019-01-10 16:00] VITALS: BP 163/76
--- NOTE | 2019-01-10 16:39 | NUR ---
NOTIFIED REGARDING ELEVATED BLOOD PRESSURE. NEW ORDERS TO BE ENTERED PER PHYSICIAN. PT ASYMPTOMATIC. WILL MONITOR. CALL LIGHT WITHIN REACH.
[2019-01-10 20:00] VITALS: BP 153/76
--- NOTE | 2019-01-10 20:24 | NUR ---
1930 RESTING IN BED WITH EYES CLOSED. APPEARS TO BE SLEEPING. HOB ELEVATED. SIDE RAILS UP X'S 2. CALL LIGHT IN REACH. PICC INTACT KRISTINE. NO DISTRESS NOTED.REMAINS AFEBRILE.
--- NOTE | 2019-01-10 22:13 | NUR ---
2100 AWAKNED FOR HS MEDS. ALERT AND PLEASANT. EATING HS SNACK.
[2019-01-11] VITALS: BP 161/84
--- NOTE | 2019-01-11 00:22 | NUR ---
RESTING IN BED WITH EYES CLOSED. APPEARS TO BE SLEEPING.
--- NOTE | 2019-01-11 06:10 | NUR ---
AWAKE FOR AM MEDS. REMAINS WIHTOUT C/O'S. AFEBRILE.SLEPT WELL THIS SHIFT. CONDITION GUARDED.
[2019-01-11 06:14] LABS: BASO # 0.1 10*3/uL (0.0-0.1); BASO % 0.6 % (0.0-1.0); EOS # 0.5 10*3/uL (0.0-0.4); EOS % 3.9 % (1.0-4.0); HEMOGLOBIN 10.9 g/dl (12.0-16.0); LYMPH # 2.5 10*3/uL (1.3-4.4); LYMPH % 18.9 % (27.0-41.0); MEAN CELL VOLUME 88.7 fl (81.0-99.0); MEAN CORPUSCULAR HGB 26.8 pg (27.0-31.0); MEAN CORPUSCULAR HGB CONC 30.3 g/dl (33.0-37.0); MEAN PLATELET VOLUME 10.6 fl (9.6-12.3); MONO % 7.7 % (3.0-9.0); NEUT % 67.2 % (47.0-73.0); PLATELET COUNT AUTOMATED 250 10*3/uL (130-400); RED BLOOD COUNT 4.06 10*6/uL (4.10-5.10); RED CELL DISTRI WIDTH 16.4 % (0-14.5); WHITE BLOOD COUNT 13.4 10*3/uL (4.8-10.8)
[2019-01-11 06:29] LABS: BUN 20 mg/dl (7-24); CHLORIDE 110 mmol/L (98-107); CREATININE 0.87 mg/dL (0.55-1.02); POTASSIUM 3.9 mmol/L (3.5-5.1); SODIUM 140 mmol/L (136-145)
[2019-01-11 06:50] LABS: INTERNATIONAL NORM RATIO 2.4 (2.0-3.5)
[2019-01-11 08:00] VITALS: BP 168/88
--- NOTE | 2019-01-11 08:26 | NUR ---
Patient resting quietly with no c/o discomfort. Respirations easy and regular. Vital signs stable. No overt distress. AXEL SIMONS
--- NOTE | 2019-01-11 08:30 | NUR ---
NOTIFIED REGARDING ELEVATED BP THIS AM. PT ASYMPTOMATIC.
--- NOTE | 2019-01-11 09:40 | NUR ---
AWARE OF MULTIPLE ALLERGIES TO BP MEDICATIONS. AWAITING PHYSICIAN ORDERS. PT REMAINS ASYMPTOMATIC.
--- NOTE | 2019-01-11 11:04 | NUR ---
PHYSICAL THERAPY PT SUPINE IN BED UPON ARRIVAL. PT IDENTIFIED BY NAME AND . PT AGREED TO ALL PT TREATMENT THIS VISIT LONG " IT WAS ALL LAYING HERE IN BED." PTS BED ALARM NOT ON UPON ARRIVAL.PT PERFORMED THE FOLLOWING SUPINE EXERCISES 20X EACH. ANKLE PUMPS, HEEL SLIDES, HIP ABD HEEL SLIDE, GLUT SET, QUAD SET. PT STATED AT END OF EXERCISES " I AM SO SLEEPY CAN WE BE DONE?" PT SUPINE IN BED AT END OF SESSION WITH BED ALARM ON AND CALL LIGHT IN HAND. PT SEEN FOR 14MINS 1:1. SIERRA MUNOZ PTA
--- NOTE | 2019-01-11 11:15 | NUR ---
Discussed Ertepenum IV with [facility] again after they denied this med for cost. Explained it is only once a day for 7 more days since patient has multiple allergies to meds. [facility] stated that is fine, they will accept patient on this medication. Hospitalist office notified.
--- NOTE | 2019-01-11 11:42 | NUR ---
CALLED AT THIS TIME REGARDING CONTINUATION OF GILL CATHETER. KEEP GILL IN UNTIL PATIENT FOLLOWS UP WITH UROLOGIST OUTPATIENT.
[2019-01-11 12:00] VITALS: BP 143/68
--- NOTE | 2019-01-11 12:20 | NUR ---
Dr Nguyen called concerning if the facility was going to accept patient on the iv medications, educated her that digital sales planner had spoken with the facility and they were willing to accept patient on the iv medications
--- NOTE | 2019-01-11 12:23 | NUR ---
Patient discharged to the [facility]. Transportation scheduled for 2PM with [facility]. MO, nursing/steward/stewardess second class notified. Attempted to notify daughter Rosalina Rebolledo, but phone would ring without any access to leave a message. unable to contact.
--- NOTE | 2019-01-11 14:18 | NUR ---
AMBULANCE HERE TO TRANSPORT PATIENT TO [facility]. BELONGINGS SENT WITH PATIENT.
--- NOTE | 2019-01-11 14:29 | NUR ---
NURSE TO NURSE REPORT GIVEN AT [facility].
--- NOTE | 2019-01-14 16:27 | NUR ---
PHYSICAL THERAPY CO-SIGN I approve of the Phyical Therapy notes written above. RUSSELL DIAL
== END 2019-01-11 14:29 | DRG 871 ==
LOC: ED 18:21 → EDHOLD 19:54 → 5E 19:54
PROVIDERS: Family Medicine; Physician Assistant; ADMIT Internal Medicine
PROC: 02HV33Z Insertion of Infusion Device into Superior Vena Cava, Percutaneous Approach (ICD-10-PCS; principal; 2019-01-08)
DX: A41.51 Sepsis due to Escherichia coli [E. coli] (principal); I50.33 Acute on chronic diastolic (congestive) heart failure; E43 Unspecified severe protein-calorie malnutrition; G93.41 Metabolic encephalopathy; N13.6 Pyonephrosis; R65.20 Severe sepsis without septic shock; I11.0 Hypertensive heart disease with heart failure; E87.8 Other disorders of electrolyte and fluid balance, not elsewhere classified; R80.9 Proteinuria, unspecified; D72.810 Lymphocytopenia; R05 Cough; E03.9 Hypothyroidism, unspecified; K59.00 Constipation, unspecified; I48.0 Paroxysmal atrial fibrillation; E55.9 Vitamin D deficiency, unspecified; E78.5 Hyperlipidemia, unspecified; M06.9 Rheumatoid arthritis, unspecified; M81.0 Age-related osteoporosis without current pathological fracture; M54.9 Dorsalgia, unspecified; G89.29 Other chronic pain; I87.2 Venous insufficiency (chronic) (peripheral); K57.90 Diverticulosis of intestine, part unspecified, without perforation or abscess without bleeding; E11.65 Type 2 diabetes mellitus with hyperglycemia; Z88.8 Allergy status to other drugs, medicaments and biological substances; Z88.1 Allergy status to other antibiotic agents; Z88.6 Allergy status to analgesic agent; Z88.5 Allergy status to narcotic agent; Z82.49 Family history of ischemic heart disease and other diseases of the circulatory system; Z90.49 Acquired absence of other specified parts of digestive tract; Z87.440 Personal history of urinary (tract) infections; Z80.3 Family history of malignant neoplasm of breast; Z79.890 Hormone replacement therapy; Z79.899 Other long term (current) drug therapy; Z79.82 Long term (current) use of aspirin; Z79.52 Long term (current) use of systemic steroids; Z88.0 Allergy status to penicillin; Z68.27 Body mass index [BMI] 27.0-27.9, adult; Z93.3 Colostomy status

== ENCOUNTER → 2019-02-01 | Outpatient (CLI) | payer MEDICARE, BC, MEDICAID ==
[~2019-02-01] MED LIST changes: +ERTAPENEM1 GM IV; +Ipratropium Brom3 ML INH; +LEVOFLOXACIN500 MG PO; +MIRALAX POWDER17 G1 PO; +NYSTATIN OINTME30 GM T; +SCOT-TUSSI10 MG/5 ML PO
== END | disposition home or self-care (01) ==
LOC: CT 10:26
DX: K57.90 Diverticulosis of intestine, part unspecified, without perforation or abscess without bleeding (principal); N39.0 Urinary tract infection, site not specified; N31.9 Neuromuscular dysfunction of bladder, unspecified

== ENCOUNTER 2019-03-16 03:56 | Emergency (ER) | payer MEDICARE, BC, MEDICAID ==
[~2019-03-16] VITALS: Ht 160 cm; Wt 68.0 kg
--- NOTE | ~2019-03-16 | EKG ---
[place], [place] ELECTROCARDIOGRAM REPORT NAME: TEOFILO FERRARA UNIT #: [id number] ROOM: DOCTOR: EPIPHANY DRAFT REPORT BIRTHDATE: [birth year] [facility] Test Date: 2019-03-16 Test Time: 04:43:53 Pat Name: TEOFILO FERRARA Department: Room: Gender: F Hemstitcher: : 1935 Requested By: MELISSA CARRANZA Order Number: [id number] Reading MD: Mc Ngo MD Measurements Intervals Baker Rate: 74 P: -52 MD: 169 QRS: 25 QRSD: 92 T: 1 QT: 415 QTc: 461 Interpretive Statements Sinus or ectopic atrial rhythm Probable LVH with secondary repol abnrm Compared to ECG 01/05/2019 19:07:40 Ectopic atrial rhythm now present Sinus tachycardia no longer present Atrial premature complex(es) no longer present Electronically Signed On 03-16-2019 13:40:21 PDT by Mc Ngo MD CM:EKGRPT:ELECTROCARDIOGRAM REPORT [id number] MELISSA KAY DRAFT REPORT MELISSA CARRANZA DO
[2019-03-16 04:45] LABS: BASO # 0.1 10*3/uL (0.0-0.1); BASO % 0.7 % (0.0-1.0); EOS # 0.5 10*3/uL (0.0-0.4); EOS % 3.6 % (1.0-4.0); HEMATOCRIT 40.9 % (37.0-47.0); HEMOGLOBIN 12.5 g/dl (12.0-16.0); LYMPH # 3.6 10*3/uL (1.3-4.4); LYMPH % 28.6 % (27.0-41.0); MEAN CELL VOLUME 88.5 fl (81.0-99.0); MEAN CORPUSCULAR HGB 27.1 pg (27.0-31.0); MEAN CORPUSCULAR HGB CONC 30.6 g/dl (33.0-37.0); MEAN PLATELET VOLUME 10.2 fl (9.6-12.3); MONO # 0.9 10*3/uL (0.1-1.0); MONO % 7.4 % (3.0-9.0); NEUT # 7.5 10*3/uL (2.3-7.9); NEUT % 59.2 % (47.0-73.0); PLATELET COUNT AUTOMATED 303 10*3/uL (130-400); RED BLOOD COUNT 4.62 10*6/uL (4.10-5.10); RED CELL DISTRI WIDTH 16.4 % (0-14.5); WHITE BLOOD COUNT 12.6 10*3/uL (4.8-10.8)
[2019-03-16 04:58] LABS: ACT PARTIAL THROMBO TIME 29.2 SECONDS (20.0-32.1); INTERNATIONAL NORM RATIO 1.8 (2.0-3.5)
[2019-03-16 05:01] LABS: ALBUMIN 3.1 gm/dl (3.1-4.5); ALKALINE PHOSPHATASE 59 U/L (45-117); BUN 17 mg/dl (7-24); CHLORIDE 109 mmol/L (98-107); CREATININE 1.05 mg/dL (0.55-1.02); POTASSIUM 3.2 mmol/L (3.5-5.1); SGOT/AST 15 IU/L (3-35); SGPT/ALT 31 U/L (12-78); SODIUM 142 mmol/L (136-145); TOTAL PROTEIN 6.8 gm/dL (6.4-8.2)
[2019-03-16 05:03] LABS: TROPONIN I < 0.015 ng/ml (<0.045)
[2019-03-16 06:08] VITALS: BP 165/79
== END 2019-03-16 07:32 | disposition home or self-care (01) ==
LOC: ED 03:56
PROVIDERS: Emergency Medicine
DX: R07.89 Other chest pain (principal); I11.0 Hypertensive heart disease with heart failure; I50.9 Heart failure, unspecified; E78.00 Pure hypercholesterolemia, unspecified; E03.9 Hypothyroidism, unspecified; E11.40 Type 2 diabetes mellitus with diabetic neuropathy, unspecified; I48.91 Unspecified atrial fibrillation; Z98.890 Other specified postprocedural states; Z93.3 Colostomy status; Z79.01 Long term (current) use of anticoagulants; Z79.899 Other long term (current) drug therapy; Z79.82 Long term (current) use of aspirin; Z88.8 Allergy status to other drugs, medicaments and biological substances; Z88.1 Allergy status to other antibiotic agents; Z88.5 Allergy status to narcotic agent; Z88.6 Allergy status to analgesic agent

== ENCOUNTER 2019-03-21 09:29 | Inpatient (IN) | payer MEDICARE, BC, MEDICAID ==
[~2019-03-21] VITALS: Ht 175.3 cm; Wt 73.5 kg
--- NOTE | ~2019-03-21 | CON ---
[place], [place] REPORT OF CONSULTATION NAME[id number] UNIT #: [id number] ROOM: 504 DOCTOR: CHRISTIN VERDUGO,SEPTEMBER BIRTHDATE: [birth year] DOS: 03/21/2019 HISTORY OF PRESENT ILLNESS: The patient is an 83-year-old female who is known to Infectious Disease. She has had prior admissions for UTI. She presents today from [facility] with a temperature of 103.1, mental status changes, WBC 17.5, lactic acid 13.1, tachycardia with a heart rate of 101, respirations 20. At the time of admission, she was given fluids and antibiotics. Her admitting urinalysis was negative for nitrites, +3 leukocyte esterase, wbc's per high power field, too numerous to count. Blood and urine cultures are pending. She has chronic Shepard catheter in place, which she states Dr. Maier advised that she needed. She has been seen by Urology in [place] which she states made no changes. ID is consulted for UTI with sepsis. She states she has had a poor appetite. Again, had fevers, chills, and change in mental status. She does not remember coming to the Emergency Room. She had previously been hospitalized in December of this year for E. coli UTI with bacteremia and was treated with Azactam and ertapenem. It appears that her E. coli has been fairly sensitive to antibiotics, at least as of her last visit in December. She is a chronic resident at [facility]. She had a CT of the abdomen and pelvis, which demonstrated mild chronic changes in the lung bases, fusion of L4-L5, spinal stenosis, but no calculi or obstruction of the kidneys. PAST MEDICAL HISTORY: As above in history of present illness, CHF, colostomy, depression, diverticulosis, colostomy was done due to a perforation and abscess with diverticulitis, hyperlipidemia, hypertension, hypothyroidism, history of MRSA, IBS, neuropathy, normocytic anemia, osteoporosis, paroxysmal AFib, pseudogout, rheumatoid arthritis, diabetes, urinary retention, venous stasis dermatitis, vitamin D deficiency, breast biopsy, and bcholecystectomy. SOCIAL HISTORY: Chronic senior living resident, nonsmoker, nondrinker, no illicit drug use. FAMILY MEDICAL HISTORY: Father lived to the age of 90, from cancer. Mother lived to the age of 86, had breast cancer and hypertension. There is also family medical history of hypertension. ALLERGIES: ALPRAZOLAM, AMLODIPINE, AMOXICILLIN, BENAZEPRIL, CELECOXIB, CEPHALEXIN, CLAVULANIC ACID, CLEMASTINE, CODEINE, DIAZEPAM, DOXEPIN, HOMATROPINE, HYDROCODONE, KETOPROFEN, LORACARBEF, NISOLDIPINE, RAMIPRIL, SULINDAC, TRAMADOL AND MECLOFENAMATE. CURRENT MEDICATIONS: Prednisone, vitamin D, aspirin, Synthroid, Coumadin, Lipitor, vancomycin, Urecholine, DuoNeb, Merrem, Levaquin, Tylenol. She also received a dose of Azactam. LABORATORY DATA: Lactic acid is down to 2.2 on last check. UA as above. WBC 17.5, platelets 260. BUN 15, creatinine 1.05, sodium 140, AST 44, ALT 46, albumin 3.3. REVIEW OF SYSTEMS: As above in history of present illness. Again, chronically Shepard catheterized due to urinary retention, although the patient states she [place], [place] REPORT OF CONSULTATION NAME: TEOFILO FERRARA UNIT #: [id number] ROOM: [facility] DOCTOR: CHRISTIN VERDUGO,SEPTEMBER BIRTHDATE: [birth year] does not know why she is chronically catheterized. Alert and oriented at this time. States she has had poor appetite, poor fluid intake. PHYSICAL EXAMINATION: VITAL SIGNS: Temperature down to 98.6, pulse 90, respirations 16, BP 123/53. GENERAL: An 83-year-old female, in no acute distress, nontoxic in appearance. HEAD, EYES, EARS, NOSE AND THROAT: Normocephalic, edentulous. No thrush. NECK: Supple. LUNGS: Clear to auscultation bilaterally. Respirations even and unlabored. HEART: Regular rhythm. No murmur appreciated. ABDOMEN: Soft, nontender, nondistended, positive bowel sounds, no CVA tenderness. EXTREMITIES: No edema, cyanosis, or deformity. SKIN: Warm, dry, free of rashes, +2 bilateral dorsalis pedis pulses, +2 bilateral radial pulses. GENITOURINARY: Shepard catheter draining clear yellow urine. ASSESSMENT: Urinary tract infection with sepsis. PLAN: She has responded well to vancomycin, Levaquin, and Merrem. We will leave those in place, pending her culture results. She was just here 2 months ago and was discharged on ertapenem. Therefore, she may be carrying more resistant bacteria or could also select for Enterococcus. Follow up on cultures and narrow antibiotics accordingly. ALONDRA WALLER CNP Chloé Rodriges MD CM:CONSTR:REPORT OF CONSULTATION [id number] 03/21/19 1830 interface
--- NOTE | ~2019-03-21 | EKG ---
[place], [place] ELECTROCARDIOGRAM REPORT NAME: TEOFILO FERRARA UNIT #: [id number] ROOM: 504 DOCTOR: RICCO DRAFT REPORT BIRTHDATE: [birth year] [facility] Test Date: 2019-03-21 Test Time: 09:42:11 Pat Name: TEOFILO FERRARA Department: Room: 504 Gender: F Wellness Specialist: : 1935 Requested By: SHANNON OCHOA Order Number: [id number] Reading MD: Mc Ngo MD Measurements Intervals [place] Rate: 100 P: -53 FL: 162 QRS: 55 QRSD: 95 T: 51 QT: 382 QTc: 493 Interpretive Statements Sinus or ectopic atrial tachycardia Borderline T wave abnormalities Borderline prolonged QT interval Compared to ECG 03/16/2019 04:43:53 T-wave abnormality now present Ectopic atrial rhythm no longer present Electronically Signed On 03-22-2019 13:35:02 PDT by Mc Ngo MD CM:EKGRPT:ELECTROCARDIOGRAM REPORT [id number] SHANNON CHACKO DRAFT REPORT SHANNON OCHOA MD
--- NOTE | ~2019-03-21 | CON ---
[place], [place] REPORT OF CONSULTATION NAME: TEOFILO FERRARA UNIT #: [id number] ROOM: 504 DOCTOR: CHLOÉ MONCADA MD BIRTHDATE: [birth year] DOS: 03/21/2019 ADDENDUM This is an addendum to the consult note done by Tomeka English on 03/21/2019. I agree with the assessment and plan. I reviewed the labs and imaging, made the necessary changes in the note. This also contains attestation to the addendum done to the consult note on 03/21/2019. Chloé Moncada MD CM:CONSTR:REPORT OF CONSULTATION [id number] 04/22/19 0352 interface
[2019-03-21 09:32] VITALS: BP 169/76
[2019-03-21 09:56] LABS: BASO # 0.1 10*3/uL (0.0-0.1); BASO % 0.3 % (0.0-1.0); EOS # 0.2 10*3/uL (0.0-0.4); EOS % 1.2 % (1.0-4.0); HEMATOCRIT 42.8 % (37.0-47.0); HEMOGLOBIN 13.4 g/dl (12.0-16.0); LYMPH # 1.1 10*3/uL (1.3-4.4); LYMPH % 6.3 % (27.0-41.0); MEAN CELL VOLUME 87.9 fl (81.0-99.0); MEAN CORPUSCULAR HGB 27.5 pg (27.0-31.0); MEAN CORPUSCULAR HGB CONC 31.3 g/dl (33.0-37.0); MEAN PLATELET VOLUME 10.3 fl (9.6-12.3); MONO # 0.6 10*3/uL (0.1-1.0); MONO % 3.3 % (3.0-9.0); NEUT # 15.4 10*3/uL (2.3-7.9); NEUT % 88.4 % (47.0-73.0); PLATELET COUNT AUTOMATED 260 10*3/uL (130-400); RED BLOOD COUNT 4.87 10*6/uL (4.10-5.10); RED CELL DISTRI WIDTH 16.6 % (0-14.5); WHITE BLOOD COUNT 17.5 10*3/uL (4.8-10.8)
[2019-03-21 10:08] LABS: ACT PARTIAL THROMBO TIME 26.5 SECONDS (20.0-32.1); INTERNATIONAL NORM RATIO 1.7 (2.0-3.5)
[2019-03-21 10:13] LABS: ALBUMIN 3.3 gm/dl (3.1-4.5); ALKALINE PHOSPHATASE 65 U/L (45-117); BUN 15 mg/dl (7-24); CHLORIDE 107 mmol/L (98-107); CREATININE 1.05 mg/dL (0.55-1.02); POTASSIUM 3.3 mmol/L (3.5-5.1); SGOT/AST 44 IU/L (3-35); SGPT/ALT 46 U/L (12-78); SODIUM 140 mmol/L (136-145); TOTAL PROTEIN 7.2 gm/dL (6.4-8.2); TROPONIN I < 0.015 ng/ml (<0.045)
--- NOTE | 2019-03-21 11:23 | NUR ---
PT COLOSTOMY BAG EMPTIED. SOFT/FORMED BROWN STOOL. INDWELLING GILL CATH THAT PT ARRIVED WITH REMOVED. REPLACED WITH 16F INDWELLING.
[2019-03-21 11:28] VITALS: BP 128/61
[2019-03-21 11:31] LABS: BILIRUBIN NEGATIVE (NEGATIVE); BLOOD 3+ (NEGATIVE); CLARITY CLOUDY (CLEAR); COLOR YELLOW (YELLOW); GLUCOSE NEGATIVE (NEGATIVE); KETONE NEGATIVE (NEGATIVE); LEUKO ESTERASE 3+ (NEGATIVE); NITRITE NEGATIVE (NEGATIVE); SPECIFIC GRAVITY 1.015 (1.005-1.030); UROBILINOGEN 0.2 E.U./dl (0.2-1.0)
[2019-03-21 11:40] LABS: RBC 21-30 rbc/hpf (0-2); WBC TNTC wbc/hpf (0-5)
[2019-03-21 12:00] VITALS: BP 94/62
[2019-03-21 12:50] VITALS: BP 94/62
--- NOTE | 2019-03-21 12:50 | NUR ---
A 83, admitted to 5E, under the services of ANGI Neely DO with a diagnosis of UTI,SEPSIS. Chief complaint is FEVER.LETHARGIC. Patient arrived via bed from ER. Monitor applied. Initial assessment completed. Vital signs taken and recorded. ANGI NEELY DO notified of admission to the unit. Orders received. See assessment for past medical history, medications and allergies. Patient and/or family oriented to unit. [address] visitation policy reviewed. Clothing/patient valuable form completed. LINNEA ALFARO
[2019-03-21] MEDS ORDERED: URECHOLINE50 MG PO (13:18)
[2019-03-21] MEDS ORDERED: MACRODANTIN50 MG PO (13:21)
[2019-03-21] MEDS ORDERED: MILK OF MA400 MG/52 PO (13:22)
[2019-03-21] MEDS ORDERED: MIRALAX POWDER17 G1 PO (13:23)
--- NOTE | 2019-03-21 13:26 | NUR ---
Called Dr. Callejas aware medicatinos are updated in computer.
--- NOTE | 2019-03-21 14:23 | NUR ---
ANSWERING SERVICE WAS NOTIFIED OF DR. ANTWAN MILLS. RESPONSE OF NOTIFICATION WAS OK WE WILL GET IT OUT THANK YOU. MANJINDER VARGAS
--- NOTE | 2019-03-21 14:43 | NUR ---
MADE AWARE OF CH LA OF 2.2. STATED OK.
--- NOTE | 2019-03-21 15:14 | NUR ---
C/O HEADACHE. TYLENOL GIVEN AT THIS TIME. WILL CONT TO MONITOR. CALL LIGHT IN REACH.
--- NOTE | 2019-03-21 15:35 | NUR ---
DR SHIPMAN CALLED BACK AND NO NEW ORDERS RECEIVED.
[2019-03-21 16:00] VITALS: BP 123/53
--- NOTE | 2019-03-21 16:20 | NUR ---
PT ASSESSED FOR PRN DA. RESPS REGUALR AND UNLABORED. RR 12-16 HR 90. BBSs CLEAR. DA NOT INDICATED AT THIS TIME. PT INSTRUCTED TO HAVE HER NURSE CONTACT RESPIRATORY THERAPY IF SHE FEELS SHE REQUIRES A TREATMENT.
[2019-03-21 20:00] VITALS: BP 108/57
[2019-03-22 06:38] LABS: BASO # 0.1 10*3/uL (0.0-0.1); BASO % 0.7 % (0.0-1.0); EOS # 0.2 10*3/uL (0.0-0.4); EOS % 1.4 % (1.0-4.0); HEMATOCRIT 36.1 % (37.0-47.0); HEMOGLOBIN 11.2 g/dl (12.0-16.0); LYMPH # 1.2 10*3/uL (1.3-4.4); LYMPH % 9.5 % (27.0-41.0); MEAN CELL VOLUME 87.2 fl (81.0-99.0); MEAN CORPUSCULAR HGB 27.1 pg (27.0-31.0); MONO # 0.7 10*3/uL (0.1-1.0); MONO % 5.6 % (3.0-9.0); NEUT % 82.2 % (47.0-73.0); PLATELET COUNT AUTOMATED 218 10*3/uL (130-400); RED BLOOD COUNT 4.14 10*6/uL (4.10-5.10); RED CELL DISTRI WIDTH 16.9 % (0-14.5); WHITE BLOOD COUNT 12.2 10*3/uL (4.8-10.8)
[2019-03-22 06:46] LABS: ALBUMIN 2.4 gm/dl (3.1-4.5); ALKALINE PHOSPHATASE 52 U/L (45-117); BUN 9 mg/dl (7-24); CHLORIDE 110 mmol/L (98-107); CREATININE 0.85 mg/dL (0.55-1.02); PHOSPHOROUS 2.2 mg/dL (2.5-4.9); POTASSIUM 3.3 mmol/L (3.5-5.1); SGOT/AST 26 IU/L (3-35); SGPT/ALT 39 U/L (12-78); SODIUM 138 mmol/L (136-145); TOTAL PROTEIN 5.7 gm/dL (6.4-8.2)
[2019-03-22 07:02] LABS: INTERNATIONAL NORM RATIO 2.1 (2.0-3.5)
[2019-03-22 08:00] VITALS: BP 138/80
[2019-03-22 08:26] LABS: VITAMIN D, 25-HYDROXY 48.5 ng/mL (30-100)
--- NOTE | 2019-03-22 09:18 | NUR ---
PHYSICAL THERAPY Nursing screen received and chart reviewed. Please order PT if decline in functional mobility presents. Thank you, Estrella Corbin,SPT Rita Steinberg,PT,DPT
[2019-03-22 12:00] VITALS: BP 158/82
--- NOTE | 2019-03-22 12:26 | NUR ---
Nursing screen received and chart reviewed. Patient admitted from senior living with abdominal pain and change in mental status. If patient should have a change in ADLs or functional mobility refer to occupational therapy. Thank you. Aaliyah Rutledge OTR/l
[2019-03-22 16:00] VITALS: BP 144/54
--- NOTE | 2019-03-22 16:17 | NUR ---
PT IS CURRENTLY IN [facility]. STATES SHE WILL RETURN UPON DISCHARGE TO [facility]. WILL CONTINUE TO FOLLOW.
[2019-03-22 20:00] VITALS: BP 140/103
[2019-03-22 22:30] VITALS: BP 120/50
[2019-03-23] VITALS: BP 139/77
[2019-03-23 07:04] LABS: BASO # 0.1 10*3/uL (0.0-0.1); BASO % 0.5 % (0.0-1.0); EOS # 0.2 10*3/uL (0.0-0.4); EOS % 2.3 % (1.0-4.0); HEMATOCRIT 36.6 % (37.0-47.0); HEMOGLOBIN 11.6 g/dl (12.0-16.0); LYMPH # 1.9 10*3/uL (1.3-4.4); LYMPH % 18.1 % (27.0-41.0); MEAN CELL VOLUME 86.1 fl (81.0-99.0); MEAN CORPUSCULAR HGB 27.3 pg (27.0-31.0); MEAN CORPUSCULAR HGB CONC 31.7 g/dl (33.0-37.0); MEAN PLATELET VOLUME 10.8 fl (9.6-12.3); MONO # 0.9 10*3/uL (0.1-1.0); MONO % 8.9 % (3.0-9.0); NEUT # 7.2 10*3/uL (2.3-7.9); NEUT % 69.7 % (47.0-73.0); PLATELET COUNT AUTOMATED 236 10*3/uL (130-400); RED BLOOD COUNT 4.25 10*6/uL (4.10-5.10); RED CELL DISTRI WIDTH 16.5 % (0-14.5); WHITE BLOOD COUNT 10.3 10*3/uL (4.8-10.8)
[2019-03-23 07:39] LABS: BUN 11 mg/dl (7-24); CHLORIDE 110 mmol/L (98-107); PHOSPHOROUS 2.3 mg/dL (2.5-4.9); POTASSIUM 3.6 mmol/L (3.5-5.1); SODIUM 140 mmol/L (136-145)
--- NOTE | 2019-03-23 07:39 | NUR ---
ASSOCIATE DIRECTOR REGULATORY AFFAIRS faxed updates to [facility] we patient is short term for rehab. -Julienne De La O,ASSOCIATE DIRECTOR REGULATORY AFFAIRS
[2019-03-23 07:41] LABS: INTERNATIONAL NORM RATIO 1.7 (2.0-3.5)
--- NOTE | 2019-03-23 07:48 | NUR ---
COKE CRUSHER OPERATOR faxed updates to [facility]. 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 -JELENA Jarvis
[2019-03-23 08:00] VITALS: BP 132/63
[2019-03-23] MEDS ORDERED: LEVAQUIN500 M2 PO (10:43)
--- NOTE | 2019-03-23 11:38 | NUR ---
TECHNOLOGY EDUCATION TEACHER received notice of patients discharge. TECHNOLOGY EDUCATION TEACHER spoke with the RN who stated would like after a 1pm transport. Patient does not qualify for ambulance. TECHNOLOGY EDUCATION TEACHER reached out to the patients family. Daughter Rosalina stated she is recovering from surgery and unable to transport the patient. TECHNOLOGY EDUCATION TEACHER [facility] stated she will see if the patient would be able to pick the patient up between appointments. TECHNOLOGY EDUCATION TEACHER notified the RN and reached out to the patients daughter explaining still trying to arrange transportation, she understood. -JELENA Jarvis
--- NOTE | 2019-03-23 12:13 | NUR ---
REPORT CALLED TO RICARDO AT [facility].
--- NOTE | 2019-03-23 13:14 | NUR ---
RIB TRIM SEPARATOR faxed updates and discharge orders to [facility]. -JELENA Jarvis
--- NOTE | 2019-03-23 13:59 | NUR ---
PT BEING DISCHARGED TO [facility] TODAY.
--- NOTE | 2019-03-23 14:10 | NUR ---
PT DISCHARGED AT THIS TIME VIA WHEELCHAIR TAKEN BY GENARO TEJADA TO [facility]. IV REMOVED AND PRESSURE DRESSING APPLIED. HEART MONITOR RETURNED TO FLOOR.
== END 2019-03-23 14:10 | DRG 871 ==
LOC: ED 09:29 → EDHOLD 11:06 → 5E 11:06
PROVIDERS: Emergency Medicine; Internal Medicine; ADMIT Family Medicine
DX: A41.9 Sepsis, unspecified organism (principal); G93.41 Metabolic encephalopathy; N17.0 Acute kidney failure with tubular necrosis; T83.511A Infection and inflammatory reaction due to indwelling urethral catheter, initial encounter; E87.2 Acidosis; N39.0 Urinary tract infection, site not specified; R65.20 Severe sepsis without septic shock; I50.9 Heart failure, unspecified; I11.0 Hypertensive heart disease with heart failure; G89.29 Other chronic pain; M54.9 Dorsalgia, unspecified; K57.90 Diverticulosis of intestine, part unspecified, without perforation or abscess without bleeding; E78.5 Hyperlipidemia, unspecified; M06.9 Rheumatoid arthritis, unspecified; L92.9 Granulomatous disorder of the skin and subcutaneous tissue, unspecified; E03.9 Hypothyroidism, unspecified; M81.0 Age-related osteoporosis without current pathological fracture; I48.0 Paroxysmal atrial fibrillation; R79.1 Abnormal coagulation profile; E11.65 Type 2 diabetes mellitus with hyperglycemia; E87.6 Hypokalemia; K58.1 Irritable bowel syndrome with constipation; Y83.8 Other surgical procedures as the cause of abnormal reaction of the patient, or of later complication, without mention of misadventure at the time of the procedure; E11.69 Type 2 diabetes mellitus with other specified complication; F32.9 Major depressive disorder, single episode, unspecified; E11.40 Type 2 diabetes mellitus with diabetic neuropathy, unspecified; Z98.1 Arthrodesis status; Z93.3 Colostomy status; Z88.8 Allergy status to other drugs, medicaments and biological substances; Z79.82 Long term (current) use of aspirin; Z79.01 Long term (current) use of anticoagulants; Z87.440 Personal history of urinary (tract) infections; Z88.6 Allergy status to analgesic agent; Z79.899 Other long term (current) drug therapy; Z90.49 Acquired absence of other specified parts of digestive tract; Z82.49 Family history of ischemic heart disease and other diseases of the circulatory system; Z80.3 Family history of malignant neoplasm of breast; Y92.89 Other specified places as the place of occurrence of the external cause

== ENCOUNTER 2019-04-04 15:29 | Emergency (ER) | payer MEDICARE, BC, MEDICAID ==
[~2019-04-04] VITALS: Ht 167.6 cm; Wt 72.6 kg
[~2019-04-04 15:29] MED LIST changes: +LEVAQUIN500 M2 PO; +LIPITOR10 MG PO; -LIPITOR20 MG PO; +MACRODANTIN50 MG PO; +MILK OF MA400 MG/52 PO; -PREDNISONE20 M1 PO; +PREDNISONE5 MG PO; +URECHOLINE50 MG PO
[2019-04-04 15:37] VITALS: BP 138/83
[2019-04-04 16:20] LABS: BASO # 0.1 10*3/uL (0.0-0.1); BASO % 0.6 % (0.0-1.0); EOS # 0.1 10*3/uL (0.0-0.4); HEMATOCRIT 39.5 % (37.0-47.0); HEMOGLOBIN 12.2 g/dl (12.0-16.0); LYMPH # 1.5 10*3/uL (1.3-4.4); LYMPH % 11.5 % (27.0-41.0); MEAN CELL VOLUME 88.8 fl (81.0-99.0); MEAN CORPUSCULAR HGB 27.4 pg (27.0-31.0); MEAN CORPUSCULAR HGB CONC 30.9 g/dl (33.0-37.0); MEAN PLATELET VOLUME 10.6 fl (9.6-12.3); MONO # 0.5 10*3/uL (0.1-1.0); MONO % 3.9 % (3.0-9.0); NEUT # 10.4 10*3/uL (2.3-7.9); NEUT % 82.4 % (47.0-73.0); PLATELET COUNT AUTOMATED 284 10*3/uL (130-400); RED BLOOD COUNT 4.45 10*6/uL (4.10-5.10); RED CELL DISTRI WIDTH 16.3 % (0-14.5); WHITE BLOOD COUNT 12.6 10*3/uL (4.8-10.8)
[2019-04-04 16:34] LABS: ALBUMIN 2.7 gm/dl (3.1-4.5); ALKALINE PHOSPHATASE 57 U/L (45-117); BUN 14 mg/dl (7-24); CHLORIDE 109 mmol/L (98-107); CREATININE 0.96 mg/dL (0.55-1.02); POTASSIUM 4.1 mmol/L (3.5-5.1); SGOT/AST 28 IU/L (3-35); SGPT/ALT 28 U/L (12-78); SODIUM 140 mmol/L (136-145); TOTAL PROTEIN 6.3 gm/dL (6.4-8.2)
[2019-04-04 16:39] LABS: INTERNATIONAL NORM RATIO 2.7 (2.0-3.5)
[2019-04-04] MEDS ORDERED: CLINDAMYCIN HC300 MG PO (18:39)
== END 2019-04-04 18:54 | disposition home or self-care (01) ==
LOC: ED 15:29
PROVIDERS: Nurse Practitioner Family
DX: L03.116 Cellulitis of left lower limb (principal); Z88.8 Allergy status to other drugs, medicaments and biological substances; Z88.1 Allergy status to other antibiotic agents; Z88.5 Allergy status to narcotic agent; Z88.6 Allergy status to analgesic agent; Z79.2 Long term (current) use of antibiotics; Z79.899 Other long term (current) drug therapy; Z79.82 Long term (current) use of aspirin; Z79.01 Long term (current) use of anticoagulants; Z90.49 Acquired absence of other specified parts of digestive tract

== ENCOUNTER 2019-05-01 17:27 | Emergency (ER) | payer MEDICARE, BC, MEDICAID ==
[~2019-05-01] VITALS: Ht 165.1 cm; Wt 71.4 kg
[~2019-05-01 17:27] MED LIST changes: +CLINDAMYCIN HC300 MG PO
[2019-05-01 18:03] LABS: BILIRUBIN NEGATIVE (NEGATIVE); BLOOD 3+ (NEGATIVE); CLARITY SL CLOUDY (CLEAR); COLOR YELLOW (YELLOW); GLUCOSE NEGATIVE (NEGATIVE); KETONE NEGATIVE (NEGATIVE); LEUKO ESTERASE 1+ (NEGATIVE); NITRITE NEGATIVE (NEGATIVE); PH 6.5 (5.0-9.0); SPECIFIC GRAVITY 1.015 (1.005-1.030); UROBILINOGEN 0.2 E.U./dl (0.2-1.0)
[2019-05-01 18:05] LABS: BASO # 0.1 10*3/uL (0.0-0.1); BASO % 0.4 % (0.0-1.0); EOS % 0.1 % (1.0-4.0); HEMATOCRIT 39.7 % (37.0-47.0); HEMOGLOBIN 12.3 g/dl (12.0-16.0); LYMPH # 1.1 10*3/uL (1.3-4.4); LYMPH % 7.9 % (27.0-41.0); MEAN CELL VOLUME 87.4 fl (81.0-99.0); MEAN CORPUSCULAR HGB 27.1 pg (27.0-31.0); MEAN PLATELET VOLUME 10.4 fl (9.6-12.3); MONO # 0.5 10*3/uL (0.1-1.0); MONO % 3.7 % (3.0-9.0); NEUT # 11.9 10*3/uL (2.3-7.9); NEUT % 87.3 % (47.0-73.0); PLATELET COUNT AUTOMATED 337 10*3/uL (130-400); RED BLOOD COUNT 4.54 10*6/uL (4.10-5.10); WHITE BLOOD COUNT 13.6 10*3/uL (4.8-10.8)
[2019-05-01 18:10] LABS: BACTERIA 2+; EPITHELIAL CELLS 0-2; RBC TNTC rbc/hpf (0-2); WBC 21-30 wbc/hpf (0-5)
[2019-05-01 18:14] LABS: INTERNATIONAL NORM RATIO 3.7 (2.0-3.5)
[2019-05-01 18:20] LABS: ALBUMIN 2.4 gm/dl (3.1-4.5); ALKALINE PHOSPHATASE 82 U/L (45-117); BUN 26 mg/dl (7-24); CHLORIDE 113 mmol/L (98-107); CREATININE 1.02 mg/dL (0.55-1.02); POTASSIUM 3.7 mmol/L (3.5-5.1); SGOT/AST 20 IU/L (3-35); SGPT/ALT 24 U/L (12-78); SODIUM 139 mmol/L (136-145); TOTAL PROTEIN 6.3 gm/dL (6.4-8.2)
[2019-05-01] MEDS ORDERED: ASPIRIN CHEWABL81 MG PO (18:44)
[2019-05-01] MEDS ORDERED: WARFARIN SODIU2.5 MG PO (18:46)
[2019-05-01] MEDS ORDERED: WARFARIN SODIUM1 MG PO (18:46)
[2019-05-01] MEDS ORDERED: DOXYCYCLINE HY100 M3 PO (18:48)
[2019-05-01] MEDS ORDERED: POTASSIUM CHLO10 ME5 PO (18:50)
[2019-05-01] MEDS ORDERED: ZOFRAN4 MG PO (18:52)
[2019-05-01 19:04] VITALS: BP 147/79
== END 2019-05-01 19:48 | disposition home or self-care (01) ==
LOC: ED 17:27
PROVIDERS: Nurse Practitioner Family
DX: N39.0 Urinary tract infection, site not specified (principal); R11.2 Nausea with vomiting, unspecified; Z88.1 Allergy status to other antibiotic agents; Z88.6 Allergy status to analgesic agent; Z88.8 Allergy status to other drugs, medicaments and biological substances; Z79.899 Other long term (current) drug therapy; Z79.82 Long term (current) use of aspirin; Z79.01 Long term (current) use of anticoagulants

== ENCOUNTER 2019-05-07 06:02 | Emergency (ER) | payer MEDICARE, BC, MEDICAID ==
[~2019-05-07] VITALS: Ht 160 cm
[~2019-05-07 06:02] MED LIST changes: +DOXYCYCLINE HY100 M3 PO; +POTASSIUM CHLO10 ME5 PO; +WARFARIN SODIU2.5 MG PO; +WARFARIN SODIUM1 MG PO; +ZOFRAN4 MG PO
[2019-05-07 06:05] VITALS: BP 136/75
== END 2019-05-07 06:20 | disposition home or self-care (01) ==
LOC: ED 06:02
DX: L27.0 Generalized skin eruption due to drugs and medicaments taken internally (principal); T36.8X5A Adverse effect of other systemic antibiotics, initial encounter; E78.5 Hyperlipidemia, unspecified; I10 Essential (primary) hypertension; E03.9 Hypothyroidism, unspecified; I48.0 Paroxysmal atrial fibrillation; E11.9 Type 2 diabetes mellitus without complications; M81.0 Age-related osteoporosis without current pathological fracture; M06.9 Rheumatoid arthritis, unspecified; Z88.1 Allergy status to other antibiotic agents; Z88.8 Allergy status to other drugs, medicaments and biological substances; Z88.6 Allergy status to analgesic agent; Z79.899 Other long term (current) drug therapy; Z79.01 Long term (current) use of anticoagulants; Y92.89 Other specified places as the place of occurrence of the external cause

== ENCOUNTER 2019-05-11 02:10 | Inpatient (IN) | payer MEDICARE, BC, MEDICAID ==
[2019-05-11] VITALS (13 sets, daily range): BP systolic 68–158; BP diastolic 00–90
[~2019-05-11] VITALS: Ht 167.6 cm; Wt 62.3 kg
[2019-05-11 03:02] LABS: BILIRUBIN NEGATIVE (NEGATIVE); BLOOD 3+ (NEGATIVE); CLARITY SL CLOUDY (CLEAR); COLOR YELLOW (YELLOW); GLUCOSE NEGATIVE (NEGATIVE); KETONE NEGATIVE (NEGATIVE); LEUKO ESTERASE 2+ (NEGATIVE); NITRITE NEGATIVE (NEGATIVE); UROBILINOGEN 0.2 E.U./dl (0.2-1.0)
[2019-05-11 03:03] LABS: HEMATOCRIT 34.6 % (37.0-47.0); HEMOGLOBIN 10.7 g/dl (12.0-16.0); MEAN CELL VOLUME 87.2 fl (81.0-99.0); MEAN CORPUSCULAR HGB CONC 30.9 g/dl (33.0-37.0); MEAN PLATELET VOLUME 10.2 fl (9.6-12.3); NUCLEATED RED BLOOD CELL 0.1 10*3/uL (0.0-0.0); NUCLEATED RED BLOOD CELL 0.3 % (0.0-0.0); PLATELET COUNT AUTOMATED 478 10*3/uL (130-400); RED BLOOD COUNT 3.97 10*6/uL (4.10-5.10); RED CELL DISTRI WIDTH 15.7 % (0-14.5)
[2019-05-11 03:08] LABS: WBC 21-30 wbc/hpf (0-5); YEAST 2+
[2019-05-11 03:09] LABS: BACTERIA 1+; RBC 21-30 rbc/hpf (0-2)
[2019-05-11 03:20] LABS: ALBUMIN 2.1 gm/dl (3.1-4.5); CREATININE 1.18 mg/dL (0.55-1.02); POTASSIUM 4.7 mmol/L (3.5-5.1); TOTAL PROTEIN 5.7 gm/dL (6.4-8.2)
[2019-05-11 03:34] LABS: BURR CELLS FEW; OVALOCYTES FEW; PLATELET SUFFICIENCY HIGH (NORMAL); TOTAL CELLS COUNTED 100 #CELLS
--- NOTE | 2019-05-11 03:49 | NUR ---
LA 2.6. KEON CARRANZA MADE AWARE.
--- NOTE | 2019-05-11 04:26 | NUR ---
PT IS SLEEPING IN BED. VS STABLE AT THIS TIME. BED IS IN LOW POSITION. SIDE RAILS UP X2. WILL CONTINUE TO MONITOR.
--- NOTE | 2019-05-11 04:47 | NUR ---
LARGE AMOUNT OF THICK BLACK STICKY STOOL REMOVED FROM COLOSTOMY BAG. PT ASKING FOR SOMEHTING FOR PAIN MD IS AWARE. CATHRYN HARRISON RN.
[2019-05-11 05:00] LABS: INTERNATIONAL NORM RATIO 3.8 (2.0-3.5)
--- NOTE | 2019-05-11 07:10 | NUR ---
PT REPPORT ACCEPTED. NO VOICED COMPLAINTS. RESTING WITH EYES CLOSED. VITALS STABLE.
--- NOTE | 2019-05-11 09:45 | NUR ---
COLOSTOMY BAG CHANGED BY AQDMITTING NURSE AT BEDSIDE IN E.D.
--- NOTE | 2019-05-11 09:59 | NUR ---
PT EXPRESSES INCREASED FEELING OF ILLNESS, BP RECHECKED BY ADMITTING NURSE, FOUND TO BE 68 SYSTOLIC. LITER NSS INITIATED. RESIDENTS TO BEDSIDE. PT REMAINS AWAKE AND ALERT.
--- NOTE | 2019-05-11 10:00 | NUR ---
BED ASSIGNED ROOM 5 ICU. AWAITING OPPORTUNITY TO TRANSPORT PT THERE.
--- NOTE | 2019-05-11 10:29 | NUR ---
300CC NSS BOLUS HAS IMPROVED BP (SEE).
--- NOTE | 2019-05-11 10:30 | NUR ---
A 83YR OLD FEMALE, admitted to ICCU, under the services of ANGI Rocha DO with a diagnosis of . Chief complaint is NAUSEA, VOMITING, ABDOMINAL PAIN WITH BLACK STOOL IN COLOSTOMY BAG. Patient arrived via stretcher from ER. Monitor applied. Initial assessment completed. Vital signs taken and recorded. See assessment for past medical history, medications and allergies. Patient and/or family oriented to unit. [facility]U visitation policy reviewed. Clothing/patient valuable form completed. Shepard catheter in place from [facility]. MIRIAN OBWERS
--- NOTE | 2019-05-11 10:35 | NUR ---
PT BACK TO BASELINE VITALS. DENIES COMPLAINTS EXCEPT FEELING "COLD" BLANKET PROVIDED. ADMISSION PENDING. SALINE BOLUS CONTINUES TO INFUSE.
[2019-05-11] MEDS ORDERED: COUMADIN4 M2 PO (11:02)
[2019-05-11] MEDS ORDERED: OCEAN104 ML NAS (11:03)
[2019-05-11] MEDS ORDERED: TUSSIN COU15 MG/5 ML PO (11:06)
--- NOTE | 2019-05-11 11:07 | NUR ---
MEDS RECONCILED WITH RECORDS FROM [facility]
--- NOTE | 2019-05-11 11:32 | NUR ---
Admission assessment completed in ER due to ER hold. Patient A&O to person and place. Lungs clear and diminised, sinus tach on monitor with PACs, HR 110-120 BPM. BP cycling automatic, systolic > 90. Colostomy to RLQ leaking black tarry stool, bag and appliance changed. Skin assessed and intact. ER nurse stated all medications were given by ER/ER would give if needed. At approximately 1020, patient became increasingly tachycardiac sustaining a HR between 120-130. Patient noted to be diaphoretic and c/o general malaise. Manual BP taken in MARIO and BP 66/palp. 2nd RN assessed BP in MARIO at 66/palp. Attending notified. Resident in to see patient, 1L bolus ordered and transfer to ICU. field sales consultant administered NS bolus, live in housekeeper notified of need for ICU bed. BP re-checked after 250 mL infused, repeat BP 118/60. HR sustained between 105-110. Patient transferred to ICU, bedside report given to Nga Roberson RN.
--- NOTE | 2019-05-11 13:10 | NUR ---
A 19 GAUGE/10CM MIDLINE PLACED IN RT UPPER ARM USING ULTRASOUND FOR GUIDANCE. PT HAS CALLED OUT MULTIPLE TIMES. WHEN ENTERING THE ROOM. PT STATES "I'M LONELY, I WANT SOMEONE TO TALK TO. AND I WANT TO GO BACK TO MY ROOM." ATTEMPT TO REORIENT PT. BED IS IN LOW POSITION WITH WHEELS LOCKED AND ACTIVATED THE BED EXIT ALARM.
[2019-05-11 13:15] LABS: HEMATOCRIT 29.3 % (37.0-47.0); HEMOGLOBIN 9.2 g/dl (12.0-16.0); MEAN CELL VOLUME 86.9 fl (81.0-99.0); MEAN CORPUSCULAR HGB 27.3 pg (27.0-31.0); MEAN CORPUSCULAR HGB CONC 31.4 g/dl (33.0-37.0); MEAN PLATELET VOLUME 10.8 fl (9.6-12.3); NUCLEATED RED BLOOD CELL 0.1 10*3/uL (0.0-0.0); NUCLEATED RED BLOOD CELL 0.2 % (0.0-0.0); PLATELET COUNT AUTOMATED 490 10*3/uL (130-400); RED BLOOD COUNT 3.37 10*6/uL (4.10-5.10); RED CELL DISTRI WIDTH 15.8 % (0-14.5); WHITE BLOOD COUNT 35.8 10*3/uL (4.8-10.8)
[2019-05-11 13:37] LABS: TOTAL CELLS COUNTED 100 #CELLS
[2019-05-11 13:38] LABS: BURR CELLS MODERATE
[2019-05-11 13:39] LABS: OVALOCYTES FEW; SCHISTOCYTES FEW
[2019-05-11 13:42] LABS: PLATELET SUFFICIENCY HIGH (NORMAL)
--- NOTE | 2019-05-11 13:59 | NUR ---
DR CARVALHO CALLED WITH CONSULTATION. REVIEWED LABS/MEDS WITH HIM. ORDERS RECEIVED.
--- NOTE | 2019-05-11 14:04 | NUR ---
DR LOPEZ UPDATED ON DR CARVALHO'S PLAN OF CARE. PT IS CURRENTLY RESTING WITH HER EYES CLOSED. NO DYSRHYTHMIAS.
--- NOTE | 2019-05-11 14:06 | NUR ---
DR MONCADA'S ANSWERING SERVICE NOTIFIED OF CONSULTATION.
--- NOTE | 2019-05-11 14:27 | NUR ---
DR MONCADA CALLED BACK. REVIEWED LABS/MEDS RECEIVED/PT ASSESSMENT. ORDERS RECEIVED.
--- NOTE | 2019-05-11 16:26 | NUR ---
CALL LIGHT ON FREQUENTLY, DOESN'T REALLY WANT ANYTHING, "JUST WANT TO SEE SOMEONE". MAKES NO ATTEMPT TO GET OUT OF BED. NO HEMATEMESIS.
--- NOTE | 2019-05-11 17:18 | NUR ---
DAUGHTER CALLED IN TO CHECK ON PT. ESTABLISHED PASSWORD. SHE SPOKE TO PT VIA PORTABLE PHONE.
--- NOTE | 2019-05-11 19:45 | NUR ---
PT. GIVEN ZOFRAN AND MORPHINE ORDERED FOR NAUSEA AND ABD PAIN. PT. CURRENTLY SLEEPING, HR 110'S, ZOFRAN AND MORPHINE EFFECTIVE. CHRISTOPH WITT RN
--- NOTE | 2019-05-11 21:02 | NUR ---
PT. RESTING IN BED. IVF INFUSING ORDERED VIA KRISTINE, SITE ASYMPT. LUNGS DIMINISHED BILAT, PULSE OX 99% ON RA. ABDOMEN SOFT ,NONDISTENDED AND NORMO. NO PERIPHERAL EDEMA NOTED. LISSETTE TEJADA AND SCD'S BILAT. RESP. EASY AND REG, NO DISTRESS. CHRISTOPH WITT ,RN
[2019-05-12] VITALS (19 sets, daily range): BP systolic 117–148; BP diastolic 57–80
--- NOTE | 2019-05-12 04:44 | NUR ---
PT. REMAINS DISORIENTED AT TIMES. PUTTING PROCESS ARCHITECT LIGHT AND FORGETTING WHY SHE CALLED. PUTTING PROCESS ARCHITECT LIGHT FOR NURSE WHEN NURSE IS IN THE ROOM, ETC. REMAINS PLEASANT AND COOPERATIVE. CHRISTOPH WITT RN
[2019-05-12 04:50] LABS: CREATININE 1.14 mg/dL (0.55-1.02); POTASSIUM 4.3 mmol/L (3.5-5.1)
[2019-05-12 06:33] LABS: INTERNATIONAL NORM RATIO 2.7 (2.0-3.5)
[2019-05-12 06:43] LABS: MEAN CELL VOLUME 89.3 fl (81.0-99.0); MEAN CORPUSCULAR HGB 27.8 pg (27.0-31.0); MEAN CORPUSCULAR HGB CONC 31.1 g/dl (33.0-37.0); MEAN PLATELET VOLUME 11.4 fl (9.6-12.3); NUCLEATED RED BLOOD CELL 0.1 % (0.0-0.0); PLATELET COUNT AUTOMATED 428 10*3/uL (130-400); RED BLOOD COUNT 2.34 10*6/uL (4.10-5.10); RED CELL DISTRI WIDTH 16.4 % (0-14.5); WHITE BLOOD COUNT 33.7 10*3/uL (4.8-10.8)
[2019-05-12 06:53] LABS: HEMOGLOBIN 6.5 g/dl (12.0-16.0)
[2019-05-12 06:54] LABS: HEMATOCRIT 20.9 % (37.0-47.0)
[2019-05-12 07:18] LABS: TOTAL CELLS COUNTED 100 #CELLS
[2019-05-12 07:19] LABS: PLATELET SUFFICIENCY HIGH (NORMAL)
--- NOTE | 2019-05-12 07:43 | NUR ---
Shift chart check completed.24 HR chart check completed.On assessment patient is alert, oriented, remembers me from yesterday. She's listless. Colostomy intact with drk stool seen in bag. Midline intact right upper arm. Hep lock left wrist. Shepard (from [place]) intact. Joseph's/SDD's in place. Dr Hernández has called me, reviewed AM labs including critical value H/H of 6.5/20.9. Orders have been received. Patient has signed Blood transfusion consent. She remains NPO for possible endoscopy later today. See all appropriate interventions.
--- NOTE | 2019-05-12 08:09 | NUR ---
Informed consent obtained from patient for Blood transfusion by Dr CARVALHO Patient identified by arm band by myself and Maddi Hester Vital signs recorded. Blood unit number [id number] verified by 2 R.N.'s. I.V. site satisfactory. Unit #1 started at a KVO rate with Normal Saline. MIRIAN BOWERS L
--- NOTE | 2019-05-12 08:10 | NUR ---
Nursing screen received and chart reviewed. 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 She is admitted w/nausea,vomiting and black stool in colostomy bag. She is to have an endoscopy today and has a critical H & H level of 6.5. If patient should have a decline in Adls then refer to Occupational Therapy. Thank you. Aaliyah Rutledge OTR/l
--- NOTE | 2019-05-12 08:21 | NUR ---
PT IN CONSTANT ATTENDANCE FIRST 15 MINUTES OF TRANSFUSION. NO SIGNS OF TRANSFUSION REACTION AT THIS TIME. TRANSFUSION RATE INCREASED TO 100ML/HR.
--- NOTE | 2019-05-12 08:22 | NUR ---
updated clinicals faxed to the [facility]; patient is shelter care and ok to return when medically stable
--- NOTE | 2019-05-12 09:30 | NUR ---
Job Site Superintendent in to see patient. She states she gets around in a wheelchair. She is a LTC resident at [facility] and plans to return there upon discharge. planner following.
--- NOTE | 2019-05-12 10:18 | NUR ---
FAMILY IN TO SEE PATIENT. UPDATED ON CONDITION AND PLAN OF CARE.
--- NOTE | 2019-05-12 10:44 | NUR ---
TRANSFUSION COMPLETE WITHOUT SIGNS OF REACTION.
--- NOTE | 2019-05-12 11:23 | NUR ---
ZOFRAN FOR NAUSEA, BUT NO EMESIS AND MORPHINE IV SLOWLY FOR ABDOMINAL PAIN.
--- NOTE | 2019-05-12 13:37 | NUR ---
RESTING QUIETLY, NO EMESIS, STILL INTERMITTENTLY C/O ABDOMINAL PAIN SINCE EARLIER MEDS.
[2019-05-12 14:42] LABS: HEMATOCRIT 21.7 % (37.0-47.0); MEAN CELL VOLUME 88.9 fl (81.0-99.0); MEAN CORPUSCULAR HGB 28.3 pg (27.0-31.0); MEAN CORPUSCULAR HGB CONC 31.8 g/dl (33.0-37.0); MEAN PLATELET VOLUME 10.8 fl (9.6-12.3); NUCLEATED RED BLOOD CELL 0.1 10*3/uL (0.0-0.0); NUCLEATED RED BLOOD CELL 0.3 % (0.0-0.0); PLATELET COUNT AUTOMATED 407 10*3/uL (130-400); RED BLOOD COUNT 2.44 10*6/uL (4.10-5.10); RED CELL DISTRI WIDTH 15.8 % (0-14.5); WHITE BLOOD COUNT 33.3 10*3/uL (4.8-10.8)
[2019-05-12 14:50] LABS: HEMOGLOBIN 6.9 g/dl (12.0-16.0)
--- NOTE | 2019-05-12 15:10 | NUR ---
DR LOPEZ NOTIFIED OF REPEAT HGB 6.9. ORDER ALREADY IN PLACE FOR TRANSFUSION TO START AT 4PM TODAY.
[2019-05-12 15:11] LABS: BASOPHILS 1 % (0-1); TOTAL CELLS COUNTED 100 #CELLS
[2019-05-12 15:12] LABS: BURR CELLS FEW; OVALOCYTES FEW; PLATELET SUFFICIENCY NORMAL (NORMAL); POLYCHROMASIA SLIGHT; SCHISTOCYTES FEW
--- NOTE | 2019-05-12 15:31 | NUR ---
PHONED DR CARVALHO WITH UPDATE OF [facility] THIS AFTERNOON AFTER THE ONE UNIT. REVIEWED LABS AND MEDS WITH HIM. ORDERS RECEIVED.
--- NOTE | 2019-05-12 15:56 | NUR ---
DR LOPEZ AND JOAQUIN UPDATED ON DR CARVALHO'S PLAN OF CARE.
--- NOTE | 2019-05-12 16:09 | NUR ---
PHYSICAL THERAPY Pt admitted via ED from LTC at [facility]. Pt with complaints of weakness, Nausea/vomiting, vomitting dark mucus with blood, no appetite and discomfort around colostomy bag. Pt is not appropriate for therapy at this time. Pt to be referred for PT when medically appropriate and stable. Thank you Missy Rudd, PT, DPT
--- NOTE | 2019-05-12 16:44 | NUR ---
Patient identified by arm band. Vital signs recorded. Blood unit number 2 verified by 2 R.N.'s. I.V. site satisfactory. Unit [id number] started at a KVO rate with Normal Saline. MIRIAN BOWERS
--- NOTE | 2019-05-12 16:58 | NUR ---
PT IN CONSTANT ATTENDANCE DURING FIRST 15 MINUTES OF TRANFUSION WITH NO SIGNS OF REACTION. INFUSION RATE INCREASED TO 90/HR.
[2019-05-13] VITALS: BP 124/60
[2019-05-13 04:00] VITALS: BP 126/62
[2019-05-13 05:16] LABS: CHLORIDE 121 mmol/L (98-107); CREATININE 1.02 mg/dL (0.55-1.02); POTASSIUM 4.1 mmol/L (3.5-5.1); SODIUM 149 mmol/L (136-145)
[2019-05-13 05:17] LABS: BUN 57 mg/dl (7-24)
[2019-05-13 06:02] LABS: HEMATOCRIT 26.9 % (37.0-47.0); HEMOGLOBIN 8.6 g/dl (12.0-16.0); MEAN CELL VOLUME 91.8 fl (81.0-99.0); MEAN CORPUSCULAR HGB 29.4 pg (27.0-31.0); MEAN PLATELET VOLUME 10.8 fl (9.6-12.3); NUCLEATED RED BLOOD CELL 0.5 10*3/uL (0.0-0.0); NUCLEATED RED BLOOD CELL 1.6 % (0.0-0.0); PLATELET COUNT AUTOMATED 386 10*3/uL (130-400); RED BLOOD COUNT 2.93 10*6/uL (4.10-5.10); RED CELL DISTRI WIDTH 15.9 % (0-14.5); WHITE BLOOD COUNT 31.1 10*3/uL (4.8-10.8)
[2019-05-13 06:35] LABS: INTERNATIONAL NORM RATIO 1.8 (2.0-3.5)
[2019-05-13 07:22] LABS: BURR CELLS MODERATE; PLATELET SUFFICIENCY NORMAL (NORMAL); POLYCHROMASIA SLIGHT; TOTAL CELLS COUNTED 100 #CELLS
[2019-05-13 08:00] VITALS: BP 119/62
--- NOTE | 2019-05-13 09:00 | NUR ---
Brand Development Manager in to see patient. She is a LTC resident at [facility] and plans to return there upon discharge. substation designer following.
--- NOTE | 2019-05-13 09:48 | NUR ---
GILL CHANGED PER ID IT WAS LAST CHANGED ON 04/14 ZOFRAN FOR NAUSEA HAS BEEN EFFECTIVE PT NOW NPO FOR EGD
[2019-05-13 10:00] LABS: BILIRUBIN NEGATIVE (NEGATIVE); BLOOD 2+ (NEGATIVE); CLARITY SL CLOUDY (CLEAR); COLOR YELLOW (YELLOW); GLUCOSE NEGATIVE (NEGATIVE); KETONE NEGATIVE (NEGATIVE); LEUKO ESTERASE 1+ (NEGATIVE); NITRITE NEGATIVE (NEGATIVE); UROBILINOGEN 0.2 E.U./dl (0.2-1.0)
[2019-05-13 10:17] LABS: BACTERIA 2+; YEAST TRACE
--- NOTE | 2019-05-13 11:03 | NUR ---
TURNED AND REPOSITIONED FOR COMFORT NPO FOR EGD
[2019-05-13 12:00] VITALS: BP 142/46
[2019-05-13 16:00] VITALS: BP 121/61
[2019-05-13 16:10] LABS: HEMATOCRIT 25.9 % (37.0-47.0); HEMOGLOBIN 8.3 g/dl (12.0-16.0)
--- NOTE | 2019-05-13 16:41 | NUR ---
DR CARVALHO CALLED WITH HH RESULTS EGD RESCHEDULED FOR TOMORROW
[2019-05-13 20:00] VITALS: BP 134/60
--- NOTE | 2019-05-13 21:00 | NUR ---
PATIENT AWOKE AND WANTED TO GET UP AND GET COFFEE, PATIENT BECAME DISORIENTED AND THOUGHT IT WAS DAYTIME. REORIENTED PATIENT, ADJUSTED IN BED, PATIENT COMFORT AT THIS TIME.
[2019-05-14] VITALS (17 sets, daily range): BP systolic 110–141; BP diastolic 43–70
[2019-05-14 04:49] LABS: BASO # 0.1 10*3/uL (0.0-0.1); BASO % 0.3 % (0.0-1.0); EOS # 0.7 10*3/uL (0.0-0.4); EOS % 4.1 % (1.0-4.0); HEMATOCRIT 23.1 % (37.0-47.0); HEMOGLOBIN 7.3 g/dl (12.0-16.0); LYMPH # 3.5 10*3/uL (1.3-4.4); LYMPH % 19.2 % (27.0-41.0); MEAN CELL VOLUME 93.5 fl (81.0-99.0); MEAN CORPUSCULAR HGB 29.6 pg (27.0-31.0); MEAN CORPUSCULAR HGB CONC 31.6 g/dl (33.0-37.0); MEAN PLATELET VOLUME 10.3 fl (9.6-12.3); MONO # 1.4 10*3/uL (0.1-1.0); NEUT % 67.1 % (47.0-73.0); NUCLEATED RED BLOOD CELL 0.2 10*3/uL (0.0-0.0); NUCLEATED RED BLOOD CELL 0.9 % (0.0-0.0); PLATELET COUNT AUTOMATED 396 10*3/uL (130-400); RED BLOOD COUNT 2.47 10*6/uL (4.10-5.10); RED CELL DISTRI WIDTH 16.7 % (0-14.5)
[2019-05-14 04:59] LABS: INTERNATIONAL NORM RATIO 1.5 (2.0-3.5)
[2019-05-14 05:02] LABS: CHLORIDE 121 mmol/L (98-107); CREATININE 1.03 mg/dL (0.55-1.02); PHOSPHOROUS 1.7 mg/dL (2.5-4.9); POTASSIUM 3.8 mmol/L (3.5-5.1); SODIUM 148 mmol/L (136-145)
[2019-05-14 05:06] LABS: BUN 35 mg/dl (7-24)
--- NOTE | 2019-05-14 07:30 | NUR ---
DR CARVALHO CALLED IN, UPDATED ON LABS, I RBCS ORDERED
--- NOTE | 2019-05-14 08:28 | NUR ---
THIRD RBC STARTED
--- NOTE | 2019-05-14 09:00 | NUR ---
Technology Officer in to see patient. No new needs or request at this time. When medically stable she will be discharged to [facility] where she is a LTC resident. She is scheduled for an EGD today, sandostatin drip and protonix and carafate po, IV Merrem, hgb 7.5, and receiving 1 unit of blood.
--- NOTE | 2019-05-14 10:38 | NUR ---
3RD RBC COMPLETED
--- NOTE | 2019-05-14 11:44 | NUR ---
ZOFRAN FOR C/O NAUSEA
--- NOTE | 2019-05-14 14:37 | NUR ---
Nutritional Support Services Note: Pt remains NPO to receive EGD today. Will follow for advancement of diet and po intake. Rosalina Shaw Rdn Ld
--- NOTE | 2019-05-14 18:19 | NUR ---
TOLERATED SOFT(GERD) DIET WELL DTR HAS BEEN UPDATED AND SPOKE WITH PT ON THE PORTABLE PHONE PLEASANT AND IN GOOD SPIRITS NOW THAT SHE CAN EAT
--- NOTE | 2019-05-14 20:00 | NUR ---
PATIENT RESTING, EASILY AWAKES. PATIENT STATES SHE IS EATING AND DRINKING WITH NO PROBLEMS. DENIES ANY PAIN AT THIS TIME. PATIENT LEFT WITH CALL LIGHT IN REACH.
[2019-05-15] VITALS: BP 129/65
[2019-05-15 04:00] VITALS: BP 141/74
[2019-05-15 05:43] LABS: ALBUMIN 2.1 gm/dl (3.1-4.5); ALKALINE PHOSPHATASE 77 U/L (45-117); BUN 25 mg/dl (7-24); CHLORIDE 118 mmol/L (98-107); CREATININE 0.92 mg/dL (0.55-1.02); POTASSIUM 3.9 mmol/L (3.5-5.1); SGOT/AST 25 IU/L (3-35); SGPT/ALT 18 U/L (12-78); SODIUM 145 mmol/L (136-145); TOTAL PROTEIN 4.9 gm/dL (6.4-8.2)
[2019-05-15 06:27] LABS: BASO # 0.1 10*3/uL (0.0-0.1); BASO % 0.5 % (0.0-1.0); EOS # 0.8 10*3/uL (0.0-0.4); EOS % 4.4 % (1.0-4.0); HEMATOCRIT 27.5 % (37.0-47.0); HEMOGLOBIN 8.6 g/dl (12.0-16.0); LYMPH % 17.5 % (27.0-41.0); MEAN CELL VOLUME 92.3 fl (81.0-99.0); MEAN CORPUSCULAR HGB 28.9 pg (27.0-31.0); MEAN CORPUSCULAR HGB CONC 31.3 g/dl (33.0-37.0); MEAN PLATELET VOLUME 10.4 fl (9.6-12.3); MONO # 1.4 10*3/uL (0.1-1.0); MONO % 8.5 % (3.0-9.0); NEUT # 11.5 10*3/uL (2.3-7.9); NEUT % 67.9 % (47.0-73.0); NUCLEATED RED BLOOD CELL 0.1 10*3/uL (0.0-0.0); NUCLEATED RED BLOOD CELL 0.3 % (0.0-0.0); PLATELET COUNT AUTOMATED 409 10*3/uL (130-400); RED BLOOD COUNT 2.98 10*6/uL (4.10-5.10); RED CELL DISTRI WIDTH 18.5 % (0-14.5); WHITE BLOOD COUNT 16.9 10*3/uL (4.8-10.8)
[2019-05-15 06:41] LABS: INTERNATIONAL NORM RATIO 1.2 (2.0-3.5)
[2019-05-15 08:00] VITALS: BP 128/74
--- NOTE | 2019-05-15 08:15 | NUR ---
Awake and alert. Breakfast ordered.
[2019-05-15 12:00] VITALS: BP 126/65
--- NOTE | 2019-05-15 12:06 | NUR ---
Medicated for c/o legs aching.
[2019-05-15 16:00] VITALS: BP 130/67
--- NOTE | 2019-05-15 17:10 | NUR ---
Report called to [facility] , dinner ordered. Transfer pending to 5E on completion of antibiotic. Dtr. Rosalina was notified of transfer to medical floor.
--- NOTE | 2019-05-15 17:32 | NUR ---
[facility].
[2019-05-15 20:00] VITALS: BP 136/63
--- NOTE | 2019-05-15 22:23 | NUR ---
PT C/O BACK PAIN. TYLENOL 650 MG PO GIVEN AT THIS TIME. ALL OTHER HS MEDICATIONS GIVEN AT THIS TIME, WILL MONITOR FOR EFFECTIVENESS. CALL LIGHT IN REACH.
--- NOTE | 2019-05-15 23:23 | NUR ---
TYLENOL EFFECTIVE PER PT.
[2019-05-16] VITALS: BP 139/69
--- NOTE | 2019-05-16 | NUR ---
24 HR chart check completed.
--- NOTE | 2019-05-16 06:00 | NUR ---
AM MEDICATIONS GIVEN AT THIS TIME. IV ANTIBIOTIC INFUSING PER ORDERS. IV SITE PATENT,FLUSHING WITH EASE AND GIVING GOOD BLOOD RETURN. RESPIRATIONS EASY AND UNLABORED. CALL LIGHT IN REACH.
--- NOTE | 2019-05-16 06:23 | NUR ---
PHYSICAL THERAPY PT EVAL COMPLETED TODAY ON LEVEL 5: FULL EVAL TO FOLLOW. RECOMMEND PT WHILE HERE TO ADDRESS DECREASED FUNCTIONAL STATUS AND DECREASED STRENGTH. PT EVAL IS MODERATE COMPLEXITY : [id number]. D/C REC: RETURN TO [facility] WHERE SHE RESIDES FOR SNF IF SHE MEETS THEIR CRITERIA. THANK YOU FOR REFERRAL STEFAN GU PT
[2019-05-16 07:49] LABS: HEMATOCRIT 28.4 % (37.0-47.0); HEMOGLOBIN 8.8 g/dl (12.0-16.0); MEAN CORPUSCULAR HGB 29.1 pg (27.0-31.0); NUCLEATED RED BLOOD CELL 0.1 % (0.0-0.0); PLATELET COUNT AUTOMATED 338 10*3/uL (130-400); RED BLOOD COUNT 3.02 10*6/uL (4.10-5.10); RED CELL DISTRI WIDTH 19.2 % (0-14.5); WHITE BLOOD COUNT 14.2 10*3/uL (4.8-10.8)
[2019-05-16 08:00] VITALS: BP 146/84
[2019-05-16 08:03] LABS: ALBUMIN 1.9 gm/dl (3.1-4.5); ALKALINE PHOSPHATASE 79 U/L (45-117); BUN 17 mg/dl (7-24); CHLORIDE 112 mmol/L (98-107); CREATININE 0.73 mg/dL (0.55-1.02); POTASSIUM 3.9 mmol/L (3.5-5.1); SGOT/AST 19 IU/L (3-35); SGPT/ALT 14 U/L (12-78); SODIUM 142 mmol/L (136-145); TOTAL PROTEIN 4.7 gm/dL (6.4-8.2)
[2019-05-16 08:16] LABS: BASOPHILS 2 % (0-1); TOTAL CELLS COUNTED 100 #CELLS
[2019-05-16 08:17] LABS: OVALOCYTES FEW; PLATELET SUFFICIENCY NORMAL (NORMAL); POLYCHROMASIA SLIGHT
[2019-05-16 12:00] VITALS: BP 121/60
[2019-05-16 16:00] VITALS: BP 135/71
[2019-05-16 20:00] VITALS: BP 129/61
[2019-05-17] VITALS: BP 134/83
--- NOTE | 2019-05-17 02:45 | NUR ---
PATIENT RESTING IN BED WITH EYES CLOSED. RESPIRATIONS REGULAR AND NON-LABORED. AROUSES TO VERBAL STIMULI. DENIES COMPLAINTS OF PAIN OR DISCOMFORT. GILL CATH PATENT DRAINING YELLOW URINE. COLOSTOMY BAG INTACT WITH DARK STOOL. MAX ASSIST X2 FOR TRANSFERS. TURNED AND REPOSITIONED Q 2 HOURS FOR COMFORT. WILL CONTINUE TO MONITOR. CALL LIGHT IN REACH.
--- NOTE | 2019-05-17 02:48 | NUR ---
24 HR chart check completed.
[2019-05-17 07:10] LABS: HEMATOCRIT 30.7 % (37.0-47.0); HEMOGLOBIN 9.9 g/dl (12.0-16.0); MEAN CORPUSCULAR HGB 28.9 pg (27.0-31.0); MEAN CORPUSCULAR HGB CONC 32.2 g/dl (33.0-37.0); MEAN PLATELET VOLUME 11.1 fl (9.6-12.3); NUCLEATED RED BLOOD CELL 0.1 % (0.0-0.0); PLATELET COUNT AUTOMATED 292 10*3/uL (130-400); RED BLOOD COUNT 3.42 10*6/uL (4.10-5.10); RED CELL DISTRI WIDTH 18.9 % (0-14.5); WHITE BLOOD COUNT 19.1 10*3/uL (4.8-10.8)
[2019-05-17 07:17] LABS: MEAN CELL VOLUME 89.8 fl (81.0-99.0)
--- NOTE | 2019-05-17 07:26 | NUR ---
Patient updated clinicals faxed to oe for review. patient is termination clerk care and ok to return when medically stable
[2019-05-17 07:53] LABS: BASOPHILS 1 % (0-1); PLATELET SUFFICIENCY NORMAL (NORMAL); POLYCHROMASIA SLIGHT; TOTAL CELLS COUNTED 100 #CELLS
--- NOTE | 2019-05-17 08:00 | NUR ---
PT RESTING AT THIS TIME. PT IS EASILY AROUSABLE, PLEASANT AND COOPERATIVE. PT IS A&OX3. ABEL. SKIN IS PINK, WARM AND DRY. HEART SOUNDS ARE NORMAL. RHONCHI IN BASES BUT OTHERWISE CLEAR. ABDOMEN IS SOFT, NON TENDER AND NON DISTENDED. COLOSTOMY BAG IS INTACT WITH SOFT BROWN STOOL. ACTIVE BOWEL SOUNDS. GILL CATHETER IS PATENT WITH CLEAR YELLOW URINE. THERE ARE ECCYMOTIC AREAS TO HER BILATERAL HANDS AND FOREARMS. SKIN IS INTACT AND NON TENTING. VITAL SINGS ARE STALE. LAURA SPJONATHONCC
[2019-05-17 08:08] VITALS: BP 118/78
--- NOTE | 2019-05-17 09:00 | NUR ---
Sound Ranging Crewmember in to see patient. No new needs or request at this time. When medically stable she will be discharged to [facility] where she is a LTC resident. Continues on protonix and carafate po along with Merrem. She needs Merrem until May 21. She needs either a PICC or midline. ID following. child welfare social worker following.
--- NOTE | 2019-05-17 09:15 | NUR ---
PT IS C/O NAUSEA AND GNERALIZED BODY PAIN. PT IS PROVIDED WITH ZOFRAN 4MG IV AND TYLENOL 650MG PO. LAURA FLORES
--- NOTE | 2019-05-17 09:15 | NUR ---
PT STARTED TO C/O NAUSEA AND GENERALIZED BODY ACHES. PT PROVIDED WITH ZOFRAN AND TYLENOL. LAURA FLORES
--- NOTE | 2019-05-17 10:00 | NUR ---
DR HUTTON ASKS THIS NURSE TO CONTACT DR CARVALHO RE: COUMADIN. SPOKE WITH DR CARVALHO RE: COUMADIN PLANS. LABS REVIEWED WITH DR CARVALHO. OK TO RESTART COUMADIN. DR HUTTON NOTIFIED.
--- NOTE | 2019-05-17 10:23 | NUR ---
PHYSICAL THERAPY PT SUPINE IN BED UPON ARRIVAL. PT STATES "I FEEL LIKE SHIT NOT TODAY." PHYSICAL THERAPY WILL ATTEMPT AT A LATER TIME/DATE. SIERRA MUNOZ PTA
--- NOTE | 2019-05-17 11:15 | NUR ---
RE EVALUATED THE PT. STATES THAT THE ZOFRAN AND TYLENOL HAVE "HELPED A LITTLE BIT". WILL CONTINUE TO ASSESS. LAURA SPNRCC
--- NOTE | 2019-05-17 12:40 | NUR ---
PHYSICAL THERAPY Patient was restng comfortably in bed this pm when approached for therapy visit and stated she was not feeling well and requested to remain in bed to sleep, not wanting to be disturbed again. Will continue per POC as able. Bandar Wilson, SUPERVISOR HARVESTING
[2019-05-17 13:05] VITALS: BP 122/78
[2019-05-17] MEDS ORDERED: Carafate1 GM/10 ML PO (13:42)
[2019-05-17] MEDS ORDERED: FLUCONAZOLE100 MG PO (13:42)
[2019-05-17] MEDS ORDERED: PANTOPRAZOLE SO40 MG PO (13:42)
[2019-05-17] MEDS ORDERED: MERREM IV1 GM IV (13:42)
--- NOTE | 2019-05-17 14:04 | NUR ---
Occupational therapy orders received. Patient was in bed upon arrival, and she refused OT evaluation at this time. Per patient, "I haven't stood since I got here." Patient educated on benefits of OT and patient stated "I'm not feeling up to it." Adalberto follow up with patient for completion of evaluation. Thank you. Oksana Asher, OTR/L
--- NOTE | 2019-05-17 14:53 | NUR ---
TRUCK REPAIR SUPERVISOR notified of patient discharge. TRUCK REPAIR SUPERVISOR spoke with ALYSSA Pond. TRUCK REPAIR SUPERVISOR reached out to [facility] to see if transportation is available. They have transportation at 3:30pm today. TRUCK REPAIR SUPERVISOR notified ALYSSA Pond. TRUCK REPAIR SUPERVISOR reached out to patients daughter Rosalina and notified her of transport time. TRUCK REPAIR SUPERVISOR faxed discharge orders to [facility]. -JELENA Jarvis
--- NOTE | 2019-05-17 15:42 | NUR ---
REPORT CALLED TO CASIMIRO AT [facility].
--- NOTE | 2019-05-17 15:50 | NUR ---
Discharge instructions reviewed with patient/family. Patient receptive and verbalizes understanding. Follow-up care arranged. Written instructions given to patient/family. TAYLER MUNOZ
--- NOTE | 2019-05-18 07:52 | NUR ---
PHYSICAL THERAPY CO-SIGN I approve of the Physical Therapy notes written above. Anna Shankar PT
== END 2019-05-17 15:50 | disposition other institution (70) | DRG 871 ==
LOC: ED 02:10 → ICCU 05:47 → EDHOLD 05:47 → ICCU 10:02 → 5E 05-15 17:07
PROVIDERS: Emergency Medicine; Internal Medicine; Internal Medicine Gastroenterology; ADMIT Family Medicine
PROC: 30233N1 Transfusion of Nonautologous Red Blood Cells into Peripheral Vein, Percutaneous Approach (ICD-10-PCS; principal; 2019-05-12)
PROC: 0DB78ZX Excision of Stomach, Pylorus, Via Natural or Artificial Opening Endoscopic, Diagnostic (ICD-10-PCS; 2019-05-14)
DX: A41.9 Sepsis, unspecified organism (principal); N17.0 Acute kidney failure with tubular necrosis; E43 Unspecified severe protein-calorie malnutrition; K57.31 Diverticulosis of large intestine without perforation or abscess with bleeding; K29.71 Gastritis, unspecified, with bleeding; K29.81 Duodenitis with bleeding; K26.4 Chronic or unspecified duodenal ulcer with hemorrhage; T83.511A Infection and inflammatory reaction due to indwelling urethral catheter, initial encounter; N39.0 Urinary tract infection, site not specified; I50.32 Chronic diastolic (congestive) heart failure; E87.0 Hyperosmolality and hypernatremia; K52.9 Noninfective gastroenteritis and colitis, unspecified; R79.1 Abnormal coagulation profile; K44.9 Diaphragmatic hernia without obstruction or gangrene; M06.9 Rheumatoid arthritis, unspecified; M81.0 Age-related osteoporosis without current pathological fracture; M54.5 Low back pain; G89.29 Other chronic pain; E03.9 Hypothyroidism, unspecified; I48.0 Paroxysmal atrial fibrillation; I11.0 Hypertensive heart disease with heart failure; E78.5 Hyperlipidemia, unspecified; E55.9 Vitamin D deficiency, unspecified; E11.65 Type 2 diabetes mellitus with hyperglycemia; F32.9 Major depressive disorder, single episode, unspecified; R65.20 Severe sepsis without septic shock; D47.3 Essential (hemorrhagic) thrombocythemia; D50.0 Iron deficiency anemia secondary to blood loss (chronic); E87.8 Other disorders of electrolyte and fluid balance, not elsewhere classified; E11.40 Type 2 diabetes mellitus with diabetic neuropathy, unspecified; Y84.6 Urinary catheterization as the cause of abnormal reaction of the patient, or of later complication, without mention of misadventure at the time of the procedure; Y92.89 Other specified places as the place of occurrence of the external cause; Z88.8 Allergy status to other drugs, medicaments and biological substances; Z88.1 Allergy status to other antibiotic agents; Z88.6 Allergy status to analgesic agent; Z87.440 Personal history of urinary (tract) infections; Z90.49 Acquired absence of other specified parts of digestive tract; Z80.3 Family history of malignant neoplasm of breast; Z82.49 Family history of ischemic heart disease and other diseases of the circulatory system; Z79.82 Long term (current) use of aspirin; Z79.899 Other long term (current) drug therapy; Z79.52 Long term (current) use of systemic steroids; Z93.3 Colostomy status; Z68.22 Body mass index [BMI] 22.0-22.9, adult

== ENCOUNTER → 2019-05-25 | Outpatient (CLI) | payer MEDICARE, BC, MEDICAID ==
[~2019-05-25] MED LIST changes: +COUMADIN4 M2 PO; +Carafate1 GM/10 ML PO; +FLUCONAZOLE100 MG PO; +MERREM IV1 GM IV; +OCEAN104 ML NAS; +PANTOPRAZOLE SO40 MG PO; +TUSSIN COU15 MG/5 ML PO
== END | disposition home or self-care (01) ==
LOC: RAD 13:07
DX: M81.0 Age-related osteoporosis without current pathological fracture (principal); E55.9 Vitamin D deficiency, unspecified; E11.9 Type 2 diabetes mellitus without complications; E03.9 Hypothyroidism, unspecified; Z78.0 Asymptomatic menopausal state

== ENCOUNTER → 2019-06-01 | Outpatient (CLI) | payer MEDICARE, BC, MEDICAID ==
[2019-06-01 09:20] VITALS: BP 121/80
== END ==
LOC: IV THERAPY 09:07 → INJECTION 09:30
DX: M81.0 Age-related osteoporosis without current pathological fracture (principal); I10 Essential (primary) hypertension; E03.9 Hypothyroidism, unspecified; M06.9 Rheumatoid arthritis, unspecified; Z90.49 Acquired absence of other specified parts of digestive tract

== ENCOUNTER 2019-07-18 16:12 | Emergency (ER) | payer MEDICARE, BC, MEDICAID ==
[2019-07-18 16:15] VITALS: BP 150/84
== END 2019-07-18 18:28 | disposition home or self-care (01) ==
LOC: ED 16:12
DX: M46.92 Unspecified inflammatory spondylopathy, cervical region (principal); R51 Headache; J02.9 Acute pharyngitis, unspecified; M81.0 Age-related osteoporosis without current pathological fracture; Z93.3 Colostomy status; G89.29 Other chronic pain; I11.0 Hypertensive heart disease with heart failure; I50.9 Heart failure, unspecified; E78.5 Hyperlipidemia, unspecified; E03.9 Hypothyroidism, unspecified; I48.0 Paroxysmal atrial fibrillation; M06.9 Rheumatoid arthritis, unspecified; E11.9 Type 2 diabetes mellitus without complications; Z88.8 Allergy status to other drugs, medicaments and biological substances; Z88.1 Allergy status to other antibiotic agents; Z88.6 Allergy status to analgesic agent; Z79.899 Other long term (current) drug therapy; Z90.49 Acquired absence of other specified parts of digestive tract

== ENCOUNTER 2019-08-20 09:35 | Emergency (ER) | payer MEDICARE, BC ==
[~2019-08-20] VITALS: Ht 167.6 cm; Wt 65.3 kg
[2019-08-20 10:23] LABS: CLARITY SL CLOUDY (CLEAR); COLOR YELLOW (YELLOW)
[2019-08-20 10:24] LABS: BILIRUBIN NEGATIVE (NEGATIVE); BLOOD 1+ (NEGATIVE); GLUCOSE NEGATIVE (NEGATIVE); KETONE NEGATIVE (NEGATIVE); LEUKO ESTERASE 3+ (NEGATIVE); NITRITE NEGATIVE (NEGATIVE); SPECIFIC GRAVITY 1.005 (1.005-1.030); UROBILINOGEN 0.2 E.U./dl (0.2-1.0)
[2019-08-20 10:41] LABS: BACTERIA 3+; WBC TNTC wbc/hpf (0-5)
[2019-08-20 10:44] LABS: BASO # 0.1 10*3/uL (0.0-0.1); BASO % 0.5 % (0.0-1.0); EOS # 0.2 10*3/uL (0.0-0.4); EOS % 1.3 % (1.0-4.0); HEMATOCRIT 32.4 % (37.0-47.0); HEMOGLOBIN 9.4 g/dl (12.0-16.0); LYMPH % 6.9 % (27.0-41.0); MEAN CELL VOLUME 78.1 fl (81.0-99.0); MEAN CORPUSCULAR HGB 22.7 pg (27.0-31.0); MEAN PLATELET VOLUME 10.3 fl (9.6-12.3); MONO # 0.7 10*3/uL (0.1-1.0); MONO % 4.4 % (3.0-9.0); NEUT # 12.6 10*3/uL (2.3-7.9); NEUT % 86.5 % (47.0-73.0); PLATELET COUNT AUTOMATED 391 10*3/uL (130-400); RED BLOOD COUNT 4.15 10*6/uL (4.10-5.10); RED CELL DISTRI WIDTH 16.3 % (0-14.5); WHITE BLOOD COUNT 14.6 10*3/uL (4.8-10.8)
[2019-08-20 10:59] LABS: ALBUMIN 2.8 gm/dl (3.1-4.5); CREATININE 1.08 mg/dL (0.55-1.02); POTASSIUM 4.4 mmol/L (3.5-5.1); TOTAL PROTEIN 6.4 gm/dL (6.4-8.2)
[2019-08-20 13:07] VITALS: BP 130/66
[2019-08-20] MEDS ORDERED: MACROBID100 M1 PO (13:26)
== END 2019-08-20 14:04 | disposition other institution (70) ==
LOC: ED 09:35
PROVIDERS: Nurse Practitioner Family
DX: N39.0 Urinary tract infection, site not specified (principal); I10 Essential (primary) hypertension; E03.9 Hypothyroidism, unspecified; M81.0 Age-related osteoporosis without current pathological fracture; G89.29 Other chronic pain; M06.9 Rheumatoid arthritis, unspecified; Z88.8 Allergy status to other drugs, medicaments and biological substances; Z88.1 Allergy status to other antibiotic agents; Z88.5 Allergy status to narcotic agent; Z88.6 Allergy status to analgesic agent; Z79.899 Other long term (current) drug therapy; Z93.3 Colostomy status; Z90.49 Acquired absence of other specified parts of digestive tract

== ENCOUNTER 2019-12-13 11:00 | Emergency (ER) | payer MEDICARE, BC ==
[~2019-12-13] VITALS: Ht 167.6 cm; Wt 68.0 kg
[2019-12-13 11:43] LABS: BASO # 0.1 10*3/uL (0.0-0.1); BASO % 0.5 % (0.0-1.0); EOS # 0.4 10*3/uL (0.0-0.4); EOS % 3.1 % (1.0-4.0); HEMATOCRIT 34.1 % (37.0-47.0); LYMPH # 2.2 10*3/uL (1.3-4.4); LYMPH % 16.9 % (27.0-41.0); MEAN CELL VOLUME 75.8 fl (81.0-99.0); MEAN PLATELET VOLUME 10.4 fl (9.6-12.3); MONO # 0.9 10*3/uL (0.1-1.0); MONO % 7.1 % (3.0-9.0); NEUT # 9.3 10*3/uL (2.3-7.9); NEUT % 71.7 % (47.0-73.0); PLATELET COUNT AUTOMATED 298 10*3/uL (130-400); RED CELL DISTRI WIDTH 19.2 % (0-14.5); WHITE BLOOD COUNT 12.9 10*3/uL (4.8-10.8)
[2019-12-13 11:55] LABS: CREATININE 1.37 mg/dL (0.55-1.02); POTASSIUM 3.8 mmol/L (3.5-5.1)
[2019-12-13 11:56] LABS: ACT PARTIAL THROMBO TIME 37.2 SECONDS (20.0-32.1); INTERNATIONAL NORM RATIO 3.9 (2.0-3.5)
[2019-12-13 12:11] LABS: BILIRUBIN NEGATIVE (NEGATIVE); BLOOD 3+ (NEGATIVE); CLARITY CLOUDY (CLEAR); COLOR YELLOW (YELLOW); GLUCOSE NEGATIVE (NEGATIVE); KETONE NEGATIVE (NEGATIVE); LEUKO ESTERASE 3+ (NEGATIVE); NITRITE NEGATIVE (NEGATIVE); PH 6.5 (5.0-9.0); SPECIFIC GRAVITY 1.005 (1.005-1.030); UROBILINOGEN 0.2 E.U./dl (0.2-1.0)
[2019-12-13 12:21] LABS: BACTERIA 3+; EPITHELIAL CELLS 0-2; WBC 41-50 wbc/hpf (0-5)
[2019-12-13 12:46] VITALS: BP 164/80
== END 2019-12-13 15:34 | disposition short-term general hospital (02) ==
LOC: ED 11:00
PROVIDERS: Emergency Medicine
DX: S72.092A Other fracture of head and neck of left femur, initial encounter for closed fracture (principal); I50.9 Heart failure, unspecified; I11.0 Hypertensive heart disease with heart failure; E78.5 Hyperlipidemia, unspecified; E11.42 Type 2 diabetes mellitus with diabetic polyneuropathy; I48.0 Paroxysmal atrial fibrillation; E03.9 Hypothyroidism, unspecified; M81.0 Age-related osteoporosis without current pathological fracture; I10 Essential (primary) hypertension; M19.90 Unspecified osteoarthritis, unspecified site; Z88.1 Allergy status to other antibiotic agents; Z88.8 Allergy status to other drugs, medicaments and biological substances; Z88.6 Allergy status to analgesic agent; Z79.899 Other long term (current) drug therapy; Z79.01 Long term (current) use of anticoagulants; W18.39XA Other fall on same level, initial encounter; Y93.89 Activity, other specified; Y92.89 Other specified places as the place of occurrence of the external cause; Y99.8 Other external cause status

== ENCOUNTER 2020-01-16 12:39 | Emergency (ER) | payer MEDICARE, BC ==
[~2020-01-16] VITALS: Ht 167.6 cm; Wt 68.5 kg
[2020-01-16 12:44] VITALS: BP 153/69
[2020-01-16 13:41] LABS: BASO # 0.1 10*3/uL (0.0-0.1); BASO % 0.4 % (0.0-1.0); EOS # 0.1 10*3/uL (0.0-0.4); EOS % 0.9 % (1.0-4.0); HEMATOCRIT 32.8 % (37.0-47.0); LYMPH # 0.8 10*3/uL (1.3-4.4); LYMPH % 6.4 % (27.0-41.0); MEAN CELL VOLUME 79.2 fl (81.0-99.0); MEAN CORPUSCULAR HGB 23.2 pg (27.0-31.0); MEAN CORPUSCULAR HGB CONC 29.3 g/dl (33.0-37.0); MEAN PLATELET VOLUME 10.7 fl (9.6-12.3); MONO # 0.3 10*3/uL (0.1-1.0); MONO % 2.4 % (3.0-9.0); NEUT # 10.9 10*3/uL (2.3-7.9); NEUT % 89.3 % (47.0-73.0); PLATELET COUNT AUTOMATED 310 10*3/uL (130-400); RED BLOOD COUNT 4.14 10*6/uL (4.10-5.10); RED CELL DISTRI WIDTH 21.5 % (0-14.5); WHITE BLOOD COUNT 12.3 10*3/uL (4.8-10.8)
[2020-01-16 13:57] LABS: ALBUMIN 2.7 gm/dl (3.1-4.5); CREATININE 1.38 mg/dL (0.55-1.02); POTASSIUM 3.7 mmol/L (3.5-5.1); TOTAL PROTEIN 6.5 gm/dL (6.4-8.2)
== END 2020-01-16 15:32 | disposition home or self-care (01) ==
LOC: ED 12:39
PROVIDERS: Emergency Medicine
DX: M54.5 Low back pain (principal); R10.84 Generalized abdominal pain; I48.91 Unspecified atrial fibrillation; I11.0 Hypertensive heart disease with heart failure; I50.9 Heart failure, unspecified; E03.9 Hypothyroidism, unspecified; E78.5 Hyperlipidemia, unspecified; E11.42 Type 2 diabetes mellitus with diabetic polyneuropathy; M81.0 Age-related osteoporosis without current pathological fracture; Z88.1 Allergy status to other antibiotic agents; Z88.8 Allergy status to other drugs, medicaments and biological substances; Z88.6 Allergy status to analgesic agent; Z79.899 Other long term (current) drug therapy; Z79.01 Long term (current) use of anticoagulants; W18.39XA Other fall on same level, initial encounter; Y93.89 Activity, other specified; Y92.89 Other specified places as the place of occurrence of the external cause; Y99.8 Other external cause status

== ENCOUNTER → 2020-03-10 | Outpatient (CLI) | payer MEDICARE, BC | END | disposition home or self-care (01) | LOC: US 01:22 | PROVIDERS: ATTEND Obstetrics & Gynecology | DX: N95.0 Postmenopausal bleeding (principal) ==

== ENCOUNTER 2020-04-12 16:49 | Observation (INO) | payer MEDICARE, BC ==
[~2020-04-12] VITALS: Ht 167.6 cm; Wt 67.1 kg
[2020-04-12 16:49] VITALS: BP 171/80
[~2020-04-12 16:49] MED LIST changes: -COUMADIN4 M2 PO; +Coumadin5 MG PO; -LEVOTHYROXINE100 MC1 PO; +MILK OF MA400 MG/5 M PO; -MILK OF MA400 MG/52 PO
[2020-04-12 17:02] LABS: BASO # 0.1 10*3/uL (0.0-0.1); BASO % 0.6 % (0.0-1.0); EOS % 0.2 % (1.0-4.0); HEMATOCRIT 32.7 % (37.0-47.0); LYMPH # 1.9 10*3/uL (1.3-4.4); LYMPH % 15.1 % (27.0-41.0); MEAN CELL VOLUME 81.1 fl (81.0-99.0); MEAN CORPUSCULAR HGB 23.6 pg (27.0-31.0); MEAN CORPUSCULAR HGB CONC 29.1 g/dl (33.0-37.0); MEAN PLATELET VOLUME 9.7 fl (9.6-12.3); MONO # 0.6 10*3/uL (0.1-1.0); MONO % 4.5 % (3.0-9.0); NEUT # 9.9 10*3/uL (2.3-7.9); NEUT % 79.2 % (47.0-73.0); PLATELET COUNT AUTOMATED 358 10*3/uL (130-400); RED BLOOD COUNT 4.03 10*6/uL (4.10-5.10); RED CELL DISTRI WIDTH 16.2 % (0-14.5); WHITE BLOOD COUNT 12.6 10*3/uL (4.8-10.8)
[2020-04-12 17:16] LABS: INTERNATIONAL NORM RATIO 2.6 (2.0-3.5)
[2020-04-12 17:25] LABS: ALBUMIN 3.2 gm/dl (3.1-4.5); BUN 19 mg/dl (7-24); CHLORIDE 109 mmol/L (98-107); CREATININE 1.16 mg/dL (0.55-1.02); POTASSIUM 4.5 mmol/L (3.5-5.1); SGOT/AST 14 IU/L (3-35); SGPT/ALT 19 U/L (12-78); SODIUM 138 mmol/L (136-145)
[2020-04-12 17:29] LABS: ALKALINE PHOSPHATASE 50 U/L (45-117); TOTAL PROTEIN 6.8 gm/dL (6.4-8.2)
[2020-04-12 17:34] LABS: TROPONIN I < 0.015 ng/ml (<0.045)
[2020-04-12 18:05] VITALS: BP 163/104
[2020-04-12 18:35] VITALS: BP 187/73
[2020-04-12 20:04] VITALS: BP 164/90
[2020-04-12 21:41] VITALS: BP 130/97
[2020-04-13] MEDS ORDERED: LIDOCAINE PAIN1 EACH T (00:37)
[2020-04-13] MEDS ORDERED: CYCLOBENZAPRINE5 M3 PO (00:39)
[2020-04-13] MEDS ORDERED: SENNOSIDES-DOC1 EACH PO (00:39)
[2020-04-13] MEDS ORDERED: PROTONIX40 MG PO (00:42)
[2020-04-13] MEDS ORDERED: CYMBALTA30 MG PO (00:43)
[2020-04-13 02:59] VITALS: BP 155/69
[2020-04-13 07:19] LABS: BASO # 0.1 10*3/uL (0.0-0.1); BASO % 0.6 % (0.0-1.0); EOS # 0.3 10*3/uL (0.0-0.4); EOS % 2.3 % (1.0-4.0); HEMATOCRIT 34.5 % (37.0-47.0); LYMPH % 23.5 % (27.0-41.0); MEAN CELL VOLUME 81.4 fl (81.0-99.0); MEAN CORPUSCULAR HGB 23.1 pg (27.0-31.0); MEAN CORPUSCULAR HGB CONC 28.4 g/dl (33.0-37.0); MEAN PLATELET VOLUME 10.2 fl (9.6-12.3); MONO # 0.9 10*3/uL (0.1-1.0); MONO % 7.2 % (3.0-9.0); NEUT # 8.3 10*3/uL (2.3-7.9); NEUT % 66.2 % (47.0-73.0); PLATELET COUNT AUTOMATED 382 10*3/uL (130-400); RED BLOOD COUNT 4.24 10*6/uL (4.10-5.10); RED CELL DISTRI WIDTH 16.1 % (0-14.5); WHITE BLOOD COUNT 12.6 10*3/uL (4.8-10.8)
[2020-04-13 07:27] LABS: ACT PARTIAL THROMBO TIME 33.6 SECONDS (20.0-32.1); INTERNATIONAL NORM RATIO 2.1 (2.0-3.5)
[2020-04-13 07:51] LABS: BUN 15 mg/dl (7-24); CHLORIDE 110 mmol/L (98-107); CHOLESTEROL 123 mg/dL (<200); CREATININE 0.94 mg/dL (0.55-1.02); SGOT/AST 15 IU/L (3-35); SGPT/ALT 18 U/L (12-78); TOTAL PROTEIN 6.6 gm/dL (6.4-8.2)
[2020-04-13 07:57] LABS: ALKALINE PHOSPHATASE 49 U/L (45-117); HDL CHOLESTEROL 60 mg/dl (40-60); LDL CHOLESTEROL 40 mg/dL (9-159); TRIGLYCERIDES 114 mg/dl (<150); VLDL CHOLESTEROL 23 mg/dL (6-40)
[2020-04-13 08:00] VITALS: BP 151/77
[2020-04-13 08:01] LABS: SODIUM 142 mmol/L (136-145)
[2020-04-13 08:08] LABS: POTASSIUM 3.5 mmol/L (3.5-5.1)
[2020-04-13 08:10] LABS: VITAMIN D, 25-HYDROXY 49.5 ng/mL (30-100)
[2020-04-13 16:00] VITALS: BP 165/77
[2020-04-13 20:00] VITALS: BP 153/73
[2020-04-14] VITALS: BP 172/78
[2020-04-14 07:19] LABS: INTERNATIONAL NORM RATIO 1.6 (2.0-3.5)
[2020-04-14 08:00] VITALS: BP 174/93
[2020-04-14 12:00] VITALS: BP 156/62
== END 2020-04-14 16:30 | disposition other institution (70) ==
LOC: ED 16:49 → EDHOLD 17:53 → 4E 23:37
PROVIDERS: Emergency Medicine; Internal Medicine; ADMIT Family Medicine; ATTEND Family Medicine
DX: R07.89 Other chest pain (principal); I13.0 Hypertensive heart and chronic kidney disease with heart failure and stage 1 through stage 4 chronic kidney disease, or unspecified chronic kidney disease; D72.829 Elevated white blood cell count, unspecified; D64.9 Anemia, unspecified; I50.9 Heart failure, unspecified; N18.30 Chronic kidney disease, stage 3 unspecified; E11.65 Type 2 diabetes mellitus with hyperglycemia; M06.9 Rheumatoid arthritis, unspecified; M81.0 Age-related osteoporosis without current pathological fracture; M54.9 Dorsalgia, unspecified; E03.9 Hypothyroidism, unspecified; I87.2 Venous insufficiency (chronic) (peripheral); I48.0 Paroxysmal atrial fibrillation; M11.20 Other chondrocalcinosis, unspecified site; E11.42 Type 2 diabetes mellitus with diabetic polyneuropathy; M47.812 Spondylosis without myelopathy or radiculopathy, cervical region; Z20.828 Contact with and (suspected) exposure to other viral communicable diseases

== ENCOUNTER 2020-06-10 17:33 | Inpatient (IN) | payer MEDICARE, BC ==
[~2020-06-10] VITALS: Ht 167.6 cm; Wt 66.8 kg
[2020-06-10] VITALS (9 sets, daily range): BP systolic 110–139; BP diastolic 57–84
[~2020-06-10 17:33] MED LIST changes: +CYMBALTA30 MG PO; +LIDOCAINE PAIN1 EACH T; +SENNOSIDES-DOC1 EACH PO
--- NOTE | 2020-06-10 17:50 | NUR ---
in to see pt and aware of pt with heart rate into the 170s at this time,
[2020-06-10 18:06] LABS: BASO % 0.2 % (0.0-1.0); EOS % 0.1 % (1.0-4.0); HEMATOCRIT 36.5 % (37.0-47.0); LYMPH # 1.4 10*3/uL (1.3-4.4); LYMPH % 17.3 % (27.0-41.0); MEAN CELL VOLUME 77.8 fl (81.0-99.0); MEAN CORPUSCULAR HGB CONC 29.6 g/dl (33.0-37.0); MEAN PLATELET VOLUME 10.5 fl (9.6-12.3); MONO # 0.5 10*3/uL (0.1-1.0); MONO % 6.1 % (3.0-9.0); NEUT # 6.3 10*3/uL (2.3-7.9); NEUT % 75.9 % (47.0-73.0); PLATELET COUNT AUTOMATED 360 10*3/uL (130-400); RED BLOOD COUNT 4.69 10*6/uL (4.10-5.10); RED CELL DISTRI WIDTH 16.7 % (0-14.5); WHITE BLOOD COUNT 8.2 10*3/uL (4.8-10.8)
--- NOTE | 2020-06-10 18:10 | NUR ---
aware of heart rate into 170s at this time and orders at this time.
[2020-06-10 18:17] LABS: ACT PARTIAL THROMBO TIME 37.9 SECONDS (20.0-32.1); INTERNATIONAL NORM RATIO 2.3 (2.0-3.5)
[2020-06-10 18:23] LABS: ALBUMIN 2.8 gm/dl (3.1-4.5); CREATININE 1.22 mg/dL (0.55-1.02); POTASSIUM 4.1 mmol/L (3.5-5.1); TOTAL PROTEIN 6.6 gm/dL (6.4-8.2)
[2020-06-10 18:30] LABS: THYROID STIM HORMONE (HS) 2.52 uIU/ml (0.358-4.75)
[2020-06-10 18:32] LABS: TROPONIN I 2.52 ng/ml (<0.045)
--- NOTE | 2020-06-10 18:37 | NUR ---
Pt resting at this time.Pt denines chest pain at this time and states she just wants to sleep.After lopressor heart rate around 114 to 130s at this time.Pt has colostomy bag also and and stoma is pink with brown stool noted.
--- NOTE | 2020-06-10 18:49 | NUR ---
Per he spoke to and does not need called at this time.
--- NOTE | 2020-06-10 19:00 | NUR ---
aware and ok to give asprin at this time.
--- NOTE | 2020-06-10 19:14 | NUR ---
Pt turned at this time brief is dry and no wounds noted.
--- NOTE | 2020-06-10 20:00 | NUR ---
A 84, admitted to , under the services of ANGI Neely DO with a diagnosis of AFIB WITH RVR, NSTEMI. Chief complaint is ELEVATED HEART RATE. Patient arrived via bed from OR. Monitor applied. Initial assessment completed. Vital signs taken and recorded. ANGI NEELY DO notified of admission to the unit. Orders received. See assessment for past medical history, medications and allergies. Patient and/or family oriented to unit. [facility] visitation policy reviewed. Clothing/patient valuable form completed. RUKHSANA SILVA
--- NOTE | 2020-06-10 20:14 | NUR ---
DR. OWENS NOTIFIED OF CRITICAL TROPONIN
--- NOTE | 2020-06-10 20:25 | NUR ---
DR. OWENS NOTIFIED OF UP TO DATE MED REC.
--- NOTE | 2020-06-10 20:37 | NUR ---
MESSAGE LEFT WITH DR. OREILLY'S ANSWERING SERVICE NOTFIED OF CONSULT
--- NOTE | 2020-06-10 20:42 | NUR ---
DR. WALLER CALLED BACK, ONE TIME DOSE OF TOPROL 50 MG ORDERED. WILL SEE PT IN AM, PT ALREADY ON ANTICOAGULATION. NOTIFIED DR. OWENS WELL.
[2020-06-10 22:39] LABS: BILIRUBIN Negative (Negative); BLOOD 3+ (Negative); CLARITY Cloudy (Clear); COLOR Yellow (Yellow); GLUCOSE Negative (Negative); KETONE Negative (Negative); LEUKO ESTERASE 1+ (Negative); NITRITE Negative (Negative); SPECIFIC GRAVITY 1.015 (1.001-1.030); UROBILINOGEN 0.2 E.U./dl (0.0-1.0)
[2020-06-10 22:52] LABS: BACTERIA 2+; EPITHELIAL CELLS 21-30; RBC 41-50 rbc/hpf (0-2)
[2020-06-11] VITALS (7 sets, daily range): BP systolic 116–139; BP diastolic 65–80
--- NOTE | 2020-06-11 00:05 | NUR ---
DR. OWENS NOTIFIED OF CRITICAL TROPONIN
--- NOTE | 2020-06-11 00:38 | NUR ---
DR. WALLER NOTIFIED OF INCREASED TROPONIN. NO NEW ORDERS. WILL SEE PT IN AM.
--- NOTE | 2020-06-11 02:00 | NUR ---
PT ASLEEP AT THIS TIME IVF INFUSING WITHOUT DIFFICULTY
[2020-06-11 07:28] LABS: BASO % 0.3 % (0.0-1.0); EOS # 0.1 10*3/uL (0.0-0.4); EOS % 1.6 % (1.0-4.0); HEMATOCRIT 38.1 % (37.0-47.0); LYMPH # 2.8 10*3/uL (1.3-4.4); LYMPH % 37.1 % (27.0-41.0); MEAN CORPUSCULAR HGB 22.1 pg (27.0-31.0); MEAN CORPUSCULAR HGB CONC 27.6 g/dl (33.0-37.0); MEAN PLATELET VOLUME 10.7 fl (9.6-12.3); MONO # 0.7 10*3/uL (0.1-1.0); MONO % 8.8 % (3.0-9.0); NEUT # 3.9 10*3/uL (2.3-7.9); NEUT % 51.9 % (47.0-73.0); PLATELET COUNT AUTOMATED 339 10*3/uL (130-400); RED BLOOD COUNT 4.76 10*6/uL (4.10-5.10); RED CELL DISTRI WIDTH 16.8 % (0-14.5); WHITE BLOOD COUNT 7.4 10*3/uL (4.8-10.8)
[2020-06-11 07:35] LABS: ALBUMIN 2.6 gm/dl (3.1-4.5); BUN 16 mg/dl (7-24); CHLORIDE 112 mmol/L (98-107); POTASSIUM 3.8 mmol/L (3.5-5.1); SODIUM 141 mmol/L (136-145)
[2020-06-11 07:38] LABS: ALKALINE PHOSPHATASE 61 U/L (45-117); CREATININE 1.01 mg/dL (0.55-1.02); SGOT/AST 34 IU/L (3-35); SGPT/ALT 29 U/L (12-78); TOTAL PROTEIN 6.3 gm/dL (6.4-8.2)
[2020-06-11 07:42] LABS: INTERNATIONAL NORM RATIO 2.5 (2.0-3.5)
--- NOTE | 2020-06-11 16:30 | NUR ---
HR 154 ADVERTISING INTERN. BP 130/78. PATIENT ASYMPTOMATIC AND DENIES CHEST PAIN. DR LEWIS CONTACTED AND INFORMED
--- NOTE | 2020-06-11 16:39 | NUR ---
24 HR chart check completed.
--- NOTE | 2020-06-11 17:45 | NUR ---
PATIENT RESTING IN BED. HR 125 ON CO FOUNDER & CEO AFTER RECEIVING IV LOPRESSOR
--- NOTE | 2020-06-11 19:00 | NUR ---
REPORT RECEIVED. PT LYING IN BED. CM READING 120'S-150'2. DR. OWENS AWARE. PT DENIES ANY CHEST PAIN OR PALPATATIONS. DR. OWENS WILL PLACE ORDER FOR TORPROL.
--- NOTE | 2020-06-11 19:00 | NUR ---
HR 134 ON ALUMINUM FABRICATION SUPERVISOR. BP 128/80 MANUALLY. PATIENT ASYMPTOMATIC. ATTEMPTED TO REACH RESIDENT PHONE X 2 WITH NO RESPONSE. WILL CALL BACK
--- NOTE | 2020-06-11 19:05 | NUR ---
DR OWENS CONTACTED AND INFORMED OF ELEVATED HR. NEW ORDERS TO BE ENTERED
--- NOTE | 2020-06-11 19:48 | NUR ---
TOPROL GIVEN AT THIS TIME. PT HR 120'S. WILL CONTINUE TO MONITOR
--- NOTE | 2020-06-11 22:00 | NUR ---
PT RESTING COMFORTABLY IN BED. PT HR 110'S ON CM AT THIS TIME.
[2020-06-12] VITALS: BP 117/71
--- NOTE | 2020-06-12 01:00 | NUR ---
PT SLEEPING. NO DISTRESS NOTED.
--- NOTE | 2020-06-12 03:00 | NUR ---
PT SLEEPING AT THIS TIME. NO DISTRESS NOTED
--- NOTE | 2020-06-12 06:00 | NUR ---
IN TO SEE PT. RESPIRATIONS EASY AND UNLABORED. CALL LIGHT IN REACH
[2020-06-12 07:04] LABS: BASO % 0.2 % (0.0-1.0); EOS # 0.1 10*3/uL (0.0-0.4); EOS % 0.9 % (1.0-4.0); HEMATOCRIT 33.3 % (37.0-47.0); LYMPH # 2.7 10*3/uL (1.3-4.4); LYMPH % 32.7 % (27.0-41.0); MEAN CELL VOLUME 78.4 fl (81.0-99.0); MEAN CORPUSCULAR HGB 22.8 pg (27.0-31.0); MEAN CORPUSCULAR HGB CONC 29.1 g/dl (33.0-37.0); MEAN PLATELET VOLUME 10.4 fl (9.6-12.3); MONO # 0.6 10*3/uL (0.1-1.0); MONO % 7.4 % (3.0-9.0); NEUT # 4.8 10*3/uL (2.3-7.9); NEUT % 58.4 % (47.0-73.0); PLATELET COUNT AUTOMATED 319 10*3/uL (130-400); RED BLOOD COUNT 4.25 10*6/uL (4.10-5.10); RED CELL DISTRI WIDTH 16.7 % (0-14.5); WHITE BLOOD COUNT 8.1 10*3/uL (4.8-10.8)
[2020-06-12 07:27] LABS: BUN 21 mg/dl (7-24); CHLORIDE 112 mmol/L (98-107); CREATININE 0.92 mg/dL (0.55-1.02); POTASSIUM 3.8 mmol/L (3.5-5.1); SODIUM 140 mmol/L (136-145)
[2020-06-12 08:00] VITALS: BP 142/90
[2020-06-12 08:17] LABS: INTERNATIONAL NORM RATIO 3.2 (2.0-3.5)
--- NOTE | 2020-06-12 08:45 | NUR ---
Pet Adoption Counselor in to talk to patient this a.m. in her Room. Patient came to [facility] from [facility] See Supervisor Care Resident. There are No Steps in the Facility. Physician: Hospitalist Pharmacy: [facility] Home health services: Pt. is Shelter Care Resident at [facility] Patient's level of ADLs: Assist Patient has working utilities: Yes at Facility DME: Walker Follow-up physician's appointment after d/c: Follow up provided at Facility Does patient want to access PORTAL?: No Discharge plan discussed with Pt. this a.m. Pt. will return to [facility] as a See Supervisor Care Resident. MARCELINO ORELLANA LPN
--- NOTE | 2020-06-12 11:15 | NUR ---
INFORMED CONSENT SIGNED FOR LEXISCAN STRESS TEST WITH DR. WALLER. RESTING EKG A-FIB, HR 122, BP 100/60. PULSE OX 95% AND LUNGS CLEAR. COMPLETED ONE MINUTE OF LEXSCAN PROTOCOL RECEIVING LEXISCAN 0.4MG OVER [address] CHANGES PRESENT WITH NO ARRHYTHMIAS NOTED. PT C/O WEIRD FEELING. LAST RECOVERY HR 120, BP 102/58. WAITING NUCLEAR SCANNING IN STABLE CONDITION>
--- NOTE | 2020-06-12 11:15 | NUR ---
OT NOTE Occupational therapy order received, chart reviewed, and attempted to see patient at bedside. Patient out of the room at this time at a stress test. Will follow up with patient when available for an OT eval. Thank you. Oksana Asher OTR/[place]
--- NOTE | 2020-06-12 11:15 | NUR ---
PHYSICAL THERAPY PT evaluation attempted. Patient out of room for stress test. Will return at a later time/date to complete evaluation. Thank you. Rita Steinberg,PT,DPT
[2020-06-12 12:00] VITALS: BP 121/89
--- NOTE | 2020-06-12 14:51 | NUR ---
Occupational Therapy evaluation completed on five with full evaluation to follow. Recommend occupational therapy per plan of care and SNF upon discharge. Thank you for this referral. Oksana Asher OTR/L
--- NOTE | 2020-06-12 14:51 | NUR ---
PHYSICAL THERAPY Physical Therapy evaluation completed on 5E with full evaluation to follow. Moderate complexity PT evaluation per chart review and evaluation, [id number]. Recommend physical therapy per plan of care and SNF upon discharge. Thank you for this referral. Rita Steinberg,PT,DPT
[2020-06-12 16:00] VITALS: BP 118/75
--- NOTE | 2020-06-12 19:55 | NUR ---
24 HR chart check completed.
[2020-06-12 20:00] VITALS: BP 145/56
--- NOTE | 2020-06-12 20:30 | NUR ---
AWAKE, DISORIENTED TO TIME/PLACE. RESPIRATIONS EASY. LUNGS DIMINISHED, CLEAR. PULSE OX 95% RA. ABD SOFT WITH NORMO BS, COLOSTOMY PATENT LEFT ABD. CALL LIGHT WITHIN REACH. NO VOICED COMPLAINTS. BED ALARM MAINTAINED FOR SAFETY
--- NOTE | 2020-06-12 21:33 | NUR ---
MEDICATED WITH TYLENOL PER PRN ORDER TO ASSIST GENERALIZED ACHES. CALL LIGHT WITHIN REACH. WILL MONITOR
--- NOTE | 2020-06-12 22:30 | NUR ---
MEDS APPEAR EFFECTIVE. SLEEPING. RESPIRATIONS EASY. CALL LIGHT WITHIN REACH. BED ALARM MAINTAINED
[2020-06-13] VITALS: BP 141/81
--- NOTE | 2020-06-13 | NUR ---
SLEEPING. RESPIRATIONS EASY. VSS, HR 100-120. CALL LIGHT WITHIN REACH. BED ALARM MAINTAINED
--- NOTE | 2020-06-13 06:00 | NUR ---
slept throughout night with no distress noted. respirations easy. call light within reach. no voiced complaints this shift
[2020-06-13 06:56] LABS: BASO % 0.2 % (0.0-1.0); EOS # 0.1 10*3/uL (0.0-0.4); HEMATOCRIT 35.4 % (37.0-47.0); LYMPH # 2.5 10*3/uL (1.3-4.4); LYMPH % 30.5 % (27.0-41.0); MEAN CORPUSCULAR HGB CONC 29.1 g/dl (33.0-37.0); MEAN PLATELET VOLUME 10.5 fl (9.6-12.3); MONO # 0.6 10*3/uL (0.1-1.0); MONO % 6.8 % (3.0-9.0); NEUT # 5.1 10*3/uL (2.3-7.9); NEUT % 61.1 % (47.0-73.0); PLATELET COUNT AUTOMATED 326 10*3/uL (130-400); RED BLOOD COUNT 4.48 10*6/uL (4.10-5.10); RED CELL DISTRI WIDTH 16.6 % (0-14.5); WHITE BLOOD COUNT 8.3 10*3/uL (4.8-10.8)
[2020-06-13 07:21] LABS: BUN 21 mg/dl (7-24); CHLORIDE 112 mmol/L (98-107); CREATININE 0.99 mg/dL (0.55-1.02); SODIUM 142 mmol/L (136-145)
[2020-06-13 07:43] LABS: INTERNATIONAL NORM RATIO 3.7 (2.0-3.5)
[2020-06-13 08:00] VITALS: BP 140/94
--- NOTE | 2020-06-13 08:45 | NUR ---
OT NOTE Pt was seen this A.M. 1:1 for 20 minute OT session. Upon arrival pt was supine in bed. Pt identified by name and and had complaints of 9/10 joint pain all over reporting "it is my arthritis." Pt presented to therapy on room air with SpO2 reading 94% and heart rate 86 bpm at rest. Pt transferred supine to sit EOB with modA for assist with upper body. While sitting EOB requested for pt to don B socks and pt was unable due to level of pain in her knees resulting in maxA. Sit to stand completed from bed level with modA and use of w/w for UE support. Pt was educated on proper hand placement for increased I and improved technique. Functional mobility was then completed to the bathroom with CGA and use of w/w. There she transferred on to standard commode with Liberty due to low surface and safety with alignment. Pt then transferred off standard commode with modA and use of grab bar for UE support. Functional mobility completed back to the recliner with CGA and use of w/w with one standing rest break due to quick onset of fatigue. Pt's SpO2 reading 92%. Pt was able to tolerate aprox 3 minutes of activity prior to sitting due to fatigue. Pt was left sitting upright in the recliner with call light in hand, tray table in place, and body alarm activated for safety. Continue with rec D/C plan to SNF. ZACH Alexander
--- NOTE | 2020-06-13 08:45 | NUR ---
PHYSICAL THERAPY Patient seen this am 1;1 for therapy visit and was supine in bed upon therapist arrival. Patient identified by name / and joined by OT marketing assistant retail division for observation this session. Patient stated she does not use O2 during the day, recording resting SpO2 94%, HR 118 bpm on RA. Patient reports chronic global joint pain as she describes as Arthritis, 03/02 and transfers supine to sit EOB with MIN A. Patient tolerated a minute or so of static EOB sit to collect herself before completing sit to stand transfer, MOD A x 2, use of wh walker standing support. Patient ambulated 10'x 1 to bathroom, completing toilet transfer, MOD A, use of L side grab bar to improve safe transfer technique. Patient ambulated additional 20'x 1, wh walker, MIN A, demonstrating very slow, antalgic gait pattern, decreased stride and POOR upright posture. Patient returned to bedside chair with increased fatigue recording SpO2 92%, HR 150 bpm. Nurse informed of patient increased HR following gait as she arrived for MED [place]. Patient remained in bedside chair as breakfast arrived with call light, tray table, telephone and body alarm for safety. Will continue per POC as tolerated, total treatment time 17 minutes. Bnadar Wilson, STRIPPER APPRENTICE
[2020-06-13] MEDS ORDERED: JANTOVEN4 M1 PO (09:51)
[2020-06-13] MEDS ORDERED: ASPIRIN ADULT L81 M1 PO (09:51)
[2020-06-13] MEDS ORDERED: METOPROLOL SUCC50 M1 PO (09:51)
--- NOTE | 2020-06-13 11:09 | NUR ---
OCCUPATIONAL THERAPY CO-SIGN I approve of the Occupational Therapy notes written above. DEN FRIEDMAN, OTR/L
--- NOTE | 2020-06-13 11:14 | NUR ---
Notified Shireen at [facility] of Discharge Today. Discharge Paperwork faxed to [facility]. Notified Pt. Daughter Rosalina Rebolledo and Notified of Planned Discharge today.
--- NOTE | 2020-06-13 14:43 | NUR ---
PT RECIEVED SMALL SKIN TEAR TO LT HAND. SHE PULLED OFF A PIECE OF TAPE. SHE IS REFUSESING DISCHARGE PHOTO'S AT THIS TIME.
--- NOTE | 2020-06-14 07:58 | NUR ---
PHYSICAL THERAPY CO-SIGN I approve of the Physical Therapy notes written above. RAY JULIAN PT,DPT
== END 2020-06-13 14:43 | disposition other institution (70) | DRG 280 ==
LOC: ED 17:33 → EDHOLD 18:47 → 5E 18:47
PROVIDERS: Emergency Medicine; Hospitalist; Student in an Organized Health Care Education/Training Program; ADMIT Family Medicine; ATTEND Family Medicine
PROC: 4A02XM4 Measurement of Cardiac Total Activity, External Approach (ICD-10-PCS; principal; 2020-06-12)
PROC: 3E073KZ Introduction of Other Diagnostic Substance into Coronary Artery, Percutaneous Approach (ICD-10-PCS; 2020-06-12)
DX: I21.4 Non-ST elevation (NSTEMI) myocardial infarction (principal); U07.1 COVID-19; E43 Unspecified severe protein-calorie malnutrition; N17.0 Acute kidney failure with tubular necrosis; R65.10 Systemic inflammatory response syndrome (SIRS) of non-infectious origin without acute organ dysfunction; I13.0 Hypertensive heart and chronic kidney disease with heart failure and stage 1 through stage 4 chronic kidney disease, or unspecified chronic kidney disease; I50.32 Chronic diastolic (congestive) heart failure; I48.0 Paroxysmal atrial fibrillation; M06.9 Rheumatoid arthritis, unspecified; E03.9 Hypothyroidism, unspecified; D50.9 Iron deficiency anemia, unspecified; E87.8 Other disorders of electrolyte and fluid balance, not elsewhere classified; N18.31 Chronic kidney disease, stage 3a; R82.71 Bacteriuria; R31.9 Hematuria, unspecified; M81.8 Other osteoporosis without current pathological fracture; M54.5 Low back pain; G89.29 Other chronic pain; M11.20 Other chondrocalcinosis, unspecified site; E55.9 Vitamin D deficiency, unspecified; E78.5 Hyperlipidemia, unspecified; E11.22 Type 2 diabetes mellitus with diabetic chronic kidney disease; E11.65 Type 2 diabetes mellitus with hyperglycemia; E11.40 Type 2 diabetes mellitus with diabetic neuropathy, unspecified; K58.1 Irritable bowel syndrome with constipation; F32.9 Major depressive disorder, single episode, unspecified; Z20.828 Contact with and (suspected) exposure to other viral communicable diseases; M47.812 Spondylosis without myelopathy or radiculopathy, cervical region; Z88.1 Allergy status to other antibiotic agents; Z88.5 Allergy status to narcotic agent; Z79.01 Long term (current) use of anticoagulants; Z88.8 Allergy status to other drugs, medicaments and biological substances; Z82.49 Family history of ischemic heart disease and other diseases of the circulatory system; Z80.3 Family history of malignant neoplasm of breast; Z93.3 Colostomy status; Z68.23 Body mass index [BMI] 23.0-23.9, adult

== ENCOUNTER 2020-06-17 01:39 | Inpatient (IN) | payer MEDICARE, BC ==
[~2020-06-17] VITALS: Ht 165.1 cm; Wt 70.5 kg
[2020-06-17] VITALS (13 sets, daily range): BP systolic 112–169; BP diastolic 83–97
[~2020-06-17 01:39] MED LIST changes: +ASPIRIN ADULT L81 M1 PO; +JANTOVEN4 M1 PO; +METOPROLOL SUCC50 M1 PO
[2020-06-17 02:08] LABS: HEMATOCRIT 34.1 % (37.0-47.0); MEAN CORPUSCULAR HGB 22.3 pg (27.0-31.0); MEAN PLATELET VOLUME 11.1 fl (9.6-12.3); NUCLEATED RED BLOOD CELL 0.1 % (0.0-0.0); PLATELET COUNT AUTOMATED 381 10*3/uL (130-400); RED BLOOD COUNT 4.43 10*6/uL (4.10-5.10); RED CELL DISTRI WIDTH 16.8 % (0-14.5); WHITE BLOOD COUNT 14.7 10*3/uL (4.8-10.8)
[2020-06-17 02:23] LABS: CREATININE 1.51 mg/dL (0.55-1.02)
[2020-06-17 02:26] LABS: TROPONIN I 0.15 ng/ml (<0.045)
[2020-06-17 02:28] LABS: PLATELET SUFFICIENCY NORMAL (NORMAL); TOTAL CELLS COUNTED 100 #CELLS
[2020-06-17 05:55] LABS: ALBUMIN 2.9 gm/dl (3.1-4.5); CREATININE 1.33 mg/dL (0.55-1.02); POTASSIUM 4.1 mmol/L (3.5-5.1); TOTAL PROTEIN 6.7 gm/dL (6.4-8.2)
[2020-06-17 06:15] LABS: HEMATOCRIT 33.3 % (37.0-47.0); MEAN CELL VOLUME 78.4 fl (81.0-99.0); MEAN CORPUSCULAR HGB 22.6 pg (27.0-31.0); MEAN CORPUSCULAR HGB CONC 28.8 g/dl (33.0-37.0); MEAN PLATELET VOLUME 11.4 fl (9.6-12.3); PLATELET COUNT AUTOMATED 346 10*3/uL (130-400); RED BLOOD COUNT 4.25 10*6/uL (4.10-5.10); WHITE BLOOD COUNT 13.6 10*3/uL (4.8-10.8)
[2020-06-17 06:50] LABS: ACT PARTIAL THROMBO TIME 46.2 SECONDS (20.0-32.1)
[2020-06-17 06:59] LABS: INTERNATIONAL NORM RATIO 5.2 (2.0-3.5)
[2020-06-17 08:38] LABS: BURR CELLS MODERATE; OVALOCYTES MODERATE; PLATELET SUFFICIENCY NORMAL (NORMAL); TOTAL CELLS COUNTED 100 #CELLS
[2020-06-18] VITALS (7 sets, daily range): BP systolic 119–160; BP diastolic 68–88
[2020-06-18 00:37] LABS: ABG BASE EXCESS -1.6 mmol/L (-2.0-2.0); ARTERIAL BLOOD GAS PH 7.445 (7.35-7.45)
[2020-06-18 06:39] LABS: BASO % 0.1 % (0.0-1.0); HEMATOCRIT 33.6 % (37.0-47.0); LYMPH # 0.7 10*3/uL (1.3-4.4); LYMPH % 5.8 % (27.0-41.0); MEAN CELL VOLUME 77.6 fl (81.0-99.0); MEAN CORPUSCULAR HGB 22.4 pg (27.0-31.0); MEAN CORPUSCULAR HGB CONC 28.9 g/dl (33.0-37.0); MEAN PLATELET VOLUME 11.3 fl (9.6-12.3); MONO # 0.7 10*3/uL (0.1-1.0); MONO % 5.5 % (3.0-9.0); NEUT # 10.9 10*3/uL (2.3-7.9); NEUT % 88.2 % (47.0-73.0); NUCLEATED RED BLOOD CELL 0.2 % (0.0-0.0); PLATELET COUNT AUTOMATED 323 10*3/uL (130-400); RED BLOOD COUNT 4.33 10*6/uL (4.10-5.10); RED CELL DISTRI WIDTH 16.9 % (0-14.5); WHITE BLOOD COUNT 12.4 10*3/uL (4.8-10.8)
[2020-06-18 06:59] LABS: ALBUMIN 2.6 gm/dl (3.1-4.5); CREATININE 1.09 mg/dL (0.55-1.02); POTASSIUM 4.2 mmol/L (3.5-5.1); TOTAL PROTEIN 6.4 gm/dL (6.4-8.2)
[2020-06-18 07:53] LABS: INTERNATIONAL NORM RATIO 3.2 (2.0-3.5)
[2020-06-18 08:29] LABS: ABG BASE EXCESS -3.6 mmol/L (-2.0-2.0); ARTERIAL BLOOD GAS PH 7.399 (7.35-7.45)
[2020-06-18 11:24] LABS: ARTERIAL BLOOD GAS PH 7.475 (7.35-7.45)
[2020-06-18] MEDS ORDERED: DECADRON6 M1 PO (16:04)
[2020-06-18] MEDS ORDERED: PROVENTIL HFA6.7 GM INH (16:08)
[2020-06-19] VITALS (10 sets, daily range): BP systolic 118–147; BP diastolic 65–89
[2020-06-19 05:43] LABS: ALBUMIN 2.6 gm/dl (3.1-4.5); CREATININE 1.07 mg/dL (0.55-1.02); POTASSIUM 3.6 mmol/L (3.5-5.1)
[2020-06-19 05:45] LABS: TOTAL PROTEIN 6.3 gm/dL (6.4-8.2)
[2020-06-19 06:26] LABS: BASO % 0.3 % (0.0-1.0); EOS % 0.1 % (1.0-4.0); HEMATOCRIT 33.1 % (37.0-47.0); INTERNATIONAL NORM RATIO 2.1 (2.0-3.5); LYMPH # 1.2 10*3/uL (1.3-4.4); LYMPH % 9.9 % (27.0-41.0); MEAN CELL VOLUME 78.3 fl (81.0-99.0); MEAN CORPUSCULAR HGB 22.5 pg (27.0-31.0); MEAN CORPUSCULAR HGB CONC 28.7 g/dl (33.0-37.0); MEAN PLATELET VOLUME 11.1 fl (9.6-12.3); MONO # 0.9 10*3/uL (0.1-1.0); MONO % 7.5 % (3.0-9.0); NEUT # 9.6 10*3/uL (2.3-7.9); NEUT % 81.5 % (47.0-73.0); PLATELET COUNT AUTOMATED 356 10*3/uL (130-400); RED BLOOD COUNT 4.23 10*6/uL (4.10-5.10); RED CELL DISTRI WIDTH 16.9 % (0-14.5); WHITE BLOOD COUNT 11.8 10*3/uL (4.8-10.8)
[2020-06-19 08:20] LABS: ABG BASE EXCESS 0.5 mmol/L (-2.0-2.0); ARTERIAL BLOOD GAS PH 7.474 (7.35-7.45)
[2020-06-20] VITALS: BP 145/76
[2020-06-20 08:00] VITALS: BP 139/80
[2020-06-20 08:45] LABS: ABG BASE EXCESS -1.2 mmol/L (-2.0-2.0); ARTERIAL BLOOD GAS PH 7.457 (7.35-7.45)
[2020-06-20 08:45] LABS: INTERNATIONAL NORM RATIO 1.6 (2.0-3.5)
[2020-06-20 08:54] LABS: ALBUMIN 2.3 gm/dl (3.1-4.5); ALKALINE PHOSPHATASE 64 U/L (45-117); BUN 27 mg/dl (7-24); CHLORIDE 106 mmol/L (98-107); CREATININE 0.95 mg/dL (0.55-1.02); POTASSIUM 4.1 mmol/L (3.5-5.1); SGOT/AST 12 IU/L (3-35); SGPT/ALT 20 U/L (12-78); SODIUM 136 mmol/L (136-145)
[2020-06-20 09:11] LABS: BASO % 0.1 % (0.0-1.0); HEMATOCRIT 37.4 % (37.0-47.0); LYMPH # 0.9 10*3/uL (1.3-4.4); LYMPH % 11.3 % (27.0-41.0); MEAN CELL VOLUME 77.1 fl (81.0-99.0); MEAN CORPUSCULAR HGB 22.1 pg (27.0-31.0); MEAN CORPUSCULAR HGB CONC 28.6 g/dl (33.0-37.0); MEAN PLATELET VOLUME 10.6 fl (9.6-12.3); MONO # 0.5 10*3/uL (0.1-1.0); MONO % 6.5 % (3.0-9.0); NEUT # 6.6 10*3/uL (2.3-7.9); NEUT % 81.4 % (47.0-73.0); PLATELET COUNT AUTOMATED 388 10*3/uL (130-400); RED BLOOD COUNT 4.85 10*6/uL (4.10-5.10); RED CELL DISTRI WIDTH 16.6 % (0-14.5); WHITE BLOOD COUNT 8.1 10*3/uL (4.8-10.8)
[2020-06-20 12:00] VITALS: BP 119/87
[2020-06-20 16:00] VITALS: BP 127/89
[2020-06-20 20:00] VITALS: BP 174/93
[2020-06-20 20:30] VITALS: BP 134/82
[2020-06-21] VITALS: BP 135/64; BP 135/69
[2020-06-21 07:47] LABS: ARTERIAL BLOOD GAS PH 7.433 (7.35-7.45)
[2020-06-21 08:00] VITALS: BP 115/88
[2020-06-21 12:00] VITALS: BP 120/56
[2020-06-21] MEDS ORDERED: METOPROLOL TART50 M1 PO (13:13)
[2020-06-21] MEDS ORDERED: Humalog SQ (13:13)
[2020-06-21] MEDS ORDERED: Coumadin2 MG PO (13:15)
== END 2020-06-21 15:49 | disposition other institution (70) | DRG 871 ==
LOC: ED 01:39 → EDHOLD 02:38 → 4E 02:38
PROVIDERS: Hospitalist; Internal Medicine; Internal Medicine Critical Care Medicine; ADMIT Student in an Organized Health Care Education/Training Program; ATTEND Student in an Organized Health Care Education/Training Program
PROC: XW033E5 Introduction of Remdesivir Anti-infective into Peripheral Vein, Percutaneous Approach, New Technology Group 5 (ICD-10-PCS; principal; 2020-06-17)
PROC: 5A09357 Assistance with Respiratory Ventilation, Less than 24 Consecutive Hours, Continuous Positive Airway Pressure (ICD-10-PCS; 2020-06-17)
PROC: 5A09457 Assistance with Respiratory Ventilation, 24-96 Consecutive Hours, Continuous Positive Airway Pressure (ICD-10-PCS; 2020-06-17)
DX: A41.9 Sepsis, unspecified organism (principal); J96.01 Acute respiratory failure with hypoxia; U07.1 COVID-19; J12.89 Other viral pneumonia; N17.0 Acute kidney failure with tubular necrosis; E43 Unspecified severe protein-calorie malnutrition; I21.4 Non-ST elevation (NSTEMI) myocardial infarction; I13.0 Hypertensive heart and chronic kidney disease with heart failure and stage 1 through stage 4 chronic kidney disease, or unspecified chronic kidney disease; I48.19 Other persistent atrial fibrillation; I50.9 Heart failure, unspecified; R65.20 Severe sepsis without septic shock; E03.9 Hypothyroidism, unspecified; E11.65 Type 2 diabetes mellitus with hyperglycemia; N18.30 Chronic kidney disease, stage 3 unspecified; D50.9 Iron deficiency anemia, unspecified; R31.9 Hematuria, unspecified; R79.1 Abnormal coagulation profile; M06.9 Rheumatoid arthritis, unspecified; E11.22 Type 2 diabetes mellitus with diabetic chronic kidney disease; E11.42 Type 2 diabetes mellitus with diabetic polyneuropathy; E78.5 Hyperlipidemia, unspecified; T45.515A Adverse effect of anticoagulants, initial encounter; I48.0 Paroxysmal atrial fibrillation; K58.9 Irritable bowel syndrome, unspecified; I25.10 Atherosclerotic heart disease of native coronary artery without angina pectoris; Z79.4 Long term (current) use of insulin; Z88.5 Allergy status to narcotic agent; Z88.8 Allergy status to other drugs, medicaments and biological substances; Z88.1 Allergy status to other antibiotic agents; Z79.899 Other long term (current) drug therapy; Y92.89 Other specified places as the place of occurrence of the external cause; Z79.01 Long term (current) use of anticoagulants; Z90.49 Acquired absence of other specified parts of digestive tract; Z80.3 Family history of malignant neoplasm of breast; Z79.82 Long term (current) use of aspirin; Z68.26 Body mass index [BMI] 26.0-26.9, adult; I25.2 Old myocardial infarction; Z88.2 Allergy status to sulfonamides; Z79.1 Long term (current) use of non-steroidal anti-inflammatories (NSAID)

== ENCOUNTER 2020-06-22 03:51 | Emergency (ER) | payer MEDICARE, BC ==
[~2020-06-22] VITALS: Ht 165.1 cm
[~2020-06-22 03:51] MED LIST changes: +Coumadin2 MG PO; +DECADRON6 M1 PO; +Humalog SQ; +METOPROLOL TART50 M1 PO; +PROVENTIL HFA6.7 GM INH
[2020-06-22 04:40] LABS: HEMATOCRIT 34.9 % (37.0-47.0); MEAN CELL VOLUME 77.6 fl (81.0-99.0); MEAN CORPUSCULAR HGB CONC 28.4 g/dl (33.0-37.0); MEAN PLATELET VOLUME 10.5 fl (9.6-12.3); PLATELET COUNT AUTOMATED 481 10*3/uL (130-400); RED CELL DISTRI WIDTH 16.6 % (0-14.5); WHITE BLOOD COUNT 13.9 10*3/uL (4.8-10.8)
[2020-06-22 04:57] LABS: ALBUMIN 2.5 gm/dl (3.1-4.5); CREATININE 1.14 mg/dL (0.55-1.02); POTASSIUM 4.7 mmol/L (3.5-5.1); TOTAL PROTEIN 6.1 gm/dL (6.4-8.2); TROPONIN I 0.042 ng/ml (<0.045)
[2020-06-22 05:03] LABS: PLATELET SUFFICIENCY HIGH (NORMAL); TOTAL CELLS COUNTED 100 #CELLS
[2020-06-22 06:52] LABS: BILIRUBIN Negative (Negative); BLOOD 1+ (Negative); CLARITY Clear (Clear); COLOR Yellow (Yellow); GLUCOSE Negative (Negative); KETONE Negative (Negative); LEUKO ESTERASE Negative (Negative); NITRITE Negative (Negative); PH 6.5 (4.5-8.0); UROBILINOGEN 0.2 E.U./dl (0.0-1.0)
[2020-06-22 07:13] LABS: BACTERIA 4+
[2020-06-22 07:14] LABS: RBC 31-40 rbc/hpf (0-2)
[2020-06-22 08:00] VITALS: BP 138/90
[2020-06-22 09:14] LABS: ACT PARTIAL THROMBO TIME 31.8 SECONDS (20.0-32.1); INTERNATIONAL NORM RATIO 2.1 (2.0-3.5)
== END 2020-06-22 11:00 | disposition other institution (70) ==
LOC: ED 03:51
PROVIDERS: Emergency Medicine
DX: I48.20 Chronic atrial fibrillation, unspecified (principal); Z88.1 Allergy status to other antibiotic agents; Z88.8 Allergy status to other drugs, medicaments and biological substances; Z88.6 Allergy status to analgesic agent; Z79.899 Other long term (current) drug therapy

== ENCOUNTER 2020-07-06 08:48 | Inpatient (IN) | payer MEDICARE, BC ==
[~2020-07-06] VITALS: Ht 165.1 cm; Wt 58.3 kg
[2020-07-06] VITALS (10 sets, daily range): BP systolic 122–175; BP diastolic 50–113
[2020-07-06 09:14] LABS: BASO # 0.1 10*3/uL (0.0-0.1); BASO % 0.6 % (0.0-1.0); EOS # 0.2 10*3/uL (0.0-0.4); EOS % 1.3 % (1.0-4.0); LYMPH # 3.4 10*3/uL (1.3-4.4); LYMPH % 18.9 % (27.0-41.0); MEAN CELL VOLUME 80.3 fl (81.0-99.0); MEAN CORPUSCULAR HGB 22.5 pg (27.0-31.0); MEAN PLATELET VOLUME 10.7 fl (9.6-12.3); MONO # 0.9 10*3/uL (0.1-1.0); MONO % 4.9 % (3.0-9.0); NEUT # 13.1 10*3/uL (2.3-7.9); NEUT % 73.7 % (47.0-73.0); PLATELET COUNT AUTOMATED 419 10*3/uL (130-400); RED BLOOD COUNT 4.36 10*6/uL (4.10-5.10); RED CELL DISTRI WIDTH 19.7 % (0-14.5); WHITE BLOOD COUNT 17.8 10*3/uL (4.8-10.8)
[2020-07-06 09:25] LABS: ACT PARTIAL THROMBO TIME 28.8 SECONDS (20.0-32.1); INTERNATIONAL NORM RATIO 1.4 (2.0-3.5)
[2020-07-06 09:33] LABS: ALBUMIN 2.9 gm/dl (3.1-4.5); CREATININE 1.23 mg/dL (0.55-1.02); POTASSIUM 4.4 mmol/L (3.5-5.1); TOTAL PROTEIN 7.1 gm/dL (6.4-8.2); TROPONIN I 0.029 ng/ml (<0.045)
[2020-07-06] MEDS ORDERED: PREDNISONE10 M1 PO (10:12)
[2020-07-06 10:14] LABS: ABG BASE EXCESS -3.9 mmol/L (-2.0-2.0); ARTERIAL BLOOD GAS PH 7.389 (7.35-7.45)
[2020-07-06 11:36] LABS: BILIRUBIN Negative (Negative); BLOOD 3+ (Negative); CLARITY Turbid (Clear); COLOR Yellow (Yellow); GLUCOSE Negative (Negative); KETONE Trace (Negative); LEUKO ESTERASE 2+ (Negative); NITRITE Negative (Negative); PH 6.5 (4.5-8.0); SPECIFIC GRAVITY 1.015 (1.001-1.030); UROBILINOGEN 0.2 E.U./dl (0.0-1.0)
[2020-07-06 20:45] LABS: ABG BASE EXCESS -4.3 mmol/L (-2.0-2.0); ARTERIAL BLOOD GAS PH 7.312 (7.35-7.45)
[2020-07-06 21:08] LABS: ABG BASE EXCESS -3.7 mmol/L (-2.0-2.0); ARTERIAL BLOOD GAS PH 7.365 (7.35-7.45)
[2020-07-07] VITALS (11 sets, daily range): BP systolic 123–173; BP diastolic 82–108
[2020-07-07 06:44] LABS: BASO # 0.1 10*3/uL (0.0-0.1); BASO % 0.4 % (0.0-1.0); EOS # 0.2 10*3/uL (0.0-0.4); EOS % 1.6 % (1.0-4.0); HEMATOCRIT 28.9 % (37.0-47.0); LYMPH # 1.6 10*3/uL (1.3-4.4); LYMPH % 11.6 % (27.0-41.0); MEAN CELL VOLUME 80.1 fl (81.0-99.0); MEAN CORPUSCULAR HGB 22.7 pg (27.0-31.0); MEAN CORPUSCULAR HGB CONC 28.4 g/dl (33.0-37.0); MEAN PLATELET VOLUME 10.5 fl (9.6-12.3); MONO # 0.7 10*3/uL (0.1-1.0); MONO % 4.8 % (3.0-9.0); NEUT # 11.3 10*3/uL (2.3-7.9); NEUT % 81.2 % (47.0-73.0); PLATELET COUNT AUTOMATED 299 10*3/uL (130-400); RED BLOOD COUNT 3.61 10*6/uL (4.10-5.10); RED CELL DISTRI WIDTH 19.7 % (0-14.5)
[2020-07-07 06:46] LABS: ACT PARTIAL THROMBO TIME 29.9 SECONDS (20.0-32.1); INTERNATIONAL NORM RATIO 1.2 (2.0-3.5)
[2020-07-07 07:01] LABS: ALBUMIN 2.5 gm/dl (3.1-4.5); BUN 17 mg/dl (7-24); CHLORIDE 109 mmol/L (98-107); CHOLESTEROL 86 mg/dL (<200); CREATININE 0.96 mg/dL (0.55-1.02); POTASSIUM 3.7 mmol/L (3.5-5.1); SGOT/AST 25 IU/L (3-35); SGPT/ALT 40 U/L (12-78); SODIUM 139 mmol/L (136-145); TRIGLYCERIDES 78 mg/dl (<150); VLDL CHOLESTEROL 16 mg/dL (6-40)
[2020-07-07 07:08] LABS: ALKALINE PHOSPHATASE 87 U/L (45-117); FREE T4 1.51 ng/dl (0.76-1.46); HDL CHOLESTEROL 39 mg/dl (40-60); LDL CHOLESTEROL 31 mg/dL (9-159); TOTAL PROTEIN 6.2 gm/dL (6.4-8.2)
[2020-07-07 07:33] LABS: VITAMIN D, 25-HYDROXY 66.5 ng/mL (30-100)
[2020-07-08] VITALS (12 sets, daily range): BP systolic 116–160; BP diastolic 77–113
[2020-07-08 06:50] LABS: BASO % 0.3 % (0.0-1.0); EOS # 0.4 10*3/uL (0.0-0.4); EOS % 2.8 % (1.0-4.0); HEMATOCRIT 29.4 % (37.0-47.0); LYMPH # 1.5 10*3/uL (1.3-4.4); LYMPH % 11.9 % (27.0-41.0); MEAN CELL VOLUME 80.1 fl (81.0-99.0); MEAN CORPUSCULAR HGB 23.4 pg (27.0-31.0); MEAN CORPUSCULAR HGB CONC 29.3 g/dl (33.0-37.0); MEAN PLATELET VOLUME 10.3 fl (9.6-12.3); MONO # 0.6 10*3/uL (0.1-1.0); MONO % 4.9 % (3.0-9.0); NEUT # 9.9 10*3/uL (2.3-7.9); NEUT % 79.5 % (47.0-73.0); PLATELET COUNT AUTOMATED 270 10*3/uL (130-400); RED BLOOD COUNT 3.67 10*6/uL (4.10-5.10); WHITE BLOOD COUNT 12.5 10*3/uL (4.8-10.8)
[2020-07-08 06:59] LABS: INTERNATIONAL NORM RATIO 2.9 (2.0-3.5)
[2020-07-08 07:07] LABS: ALBUMIN 2.4 gm/dl (3.1-4.5); CREATININE 1.07 mg/dL (0.55-1.02); POTASSIUM 3.6 mmol/L (3.5-5.1); TOTAL PROTEIN 6.1 gm/dL (6.4-8.2)
[2020-07-09] VITALS (12 sets, daily range): BP systolic 113–138; BP diastolic 63–90
[2020-07-09 06:13] LABS: BASO # 0.1 10*3/uL (0.0-0.1); BASO % 0.5 % (0.0-1.0); EOS # 0.1 10*3/uL (0.0-0.4); EOS % 0.8 % (1.0-4.0); HEMATOCRIT 31.1 % (37.0-47.0); LYMPH # 1.3 10*3/uL (1.3-4.4); LYMPH % 8.3 % (27.0-41.0); MEAN CELL VOLUME 77.6 fl (81.0-99.0); MEAN CORPUSCULAR HGB 22.7 pg (27.0-31.0); MEAN CORPUSCULAR HGB CONC 29.3 g/dl (33.0-37.0); MEAN PLATELET VOLUME 10.7 fl (9.6-12.3); MONO # 0.7 10*3/uL (0.1-1.0); MONO % 4.6 % (3.0-9.0); NEUT % 84.3 % (47.0-73.0); PLATELET COUNT AUTOMATED 284 10*3/uL (130-400); RED BLOOD COUNT 4.01 10*6/uL (4.10-5.10); WHITE BLOOD COUNT 15.4 10*3/uL (4.8-10.8)
[2020-07-09 06:40] LABS: INTERNATIONAL NORM RATIO 5.2 (2.0-3.5)
[2020-07-09 06:44] LABS: CREATININE 1.13 mg/dL (0.55-1.02); POTASSIUM 2.9 mmol/L (3.5-5.1)
[2020-07-10] VITALS (12 sets, daily range): BP systolic 111–147; BP diastolic 50–91
[2020-07-10 06:36] LABS: BASO # 0.1 10*3/uL (0.0-0.1); BASO % 0.4 % (0.0-1.0); EOS # 0.3 10*3/uL (0.0-0.4); EOS % 2.7 % (1.0-4.0); HEMATOCRIT 31.7 % (37.0-47.0); LYMPH # 1.7 10*3/uL (1.3-4.4); LYMPH % 13.5 % (27.0-41.0); MEAN CELL VOLUME 77.1 fl (81.0-99.0); MEAN CORPUSCULAR HGB 22.9 pg (27.0-31.0); MEAN CORPUSCULAR HGB CONC 29.7 g/dl (33.0-37.0); MEAN PLATELET VOLUME 10.2 fl (9.6-12.3); MONO # 0.8 10*3/uL (0.1-1.0); MONO % 6.6 % (3.0-9.0); NEUT # 9.4 10*3/uL (2.3-7.9); NEUT % 76.2 % (47.0-73.0); PLATELET COUNT AUTOMATED 317 10*3/uL (130-400); RED BLOOD COUNT 4.11 10*6/uL (4.10-5.10); RED CELL DISTRI WIDTH 20.4 % (0-14.5); WHITE BLOOD COUNT 12.4 10*3/uL (4.8-10.8)
[2020-07-10 06:47] LABS: CREATININE 1.24 mg/dL (0.55-1.02)
[2020-07-10 07:09] LABS: INTERNATIONAL NORM RATIO 5.7 (2.0-3.5)
[2020-07-11] VITALS (12 sets, daily range): BP systolic 107–136; BP diastolic 30–91
[2020-07-11 06:45] LABS: BASO # 0.1 10*3/uL (0.0-0.1); BASO % 0.5 % (0.0-1.0); EOS # 0.6 10*3/uL (0.0-0.4); EOS % 5.1 % (1.0-4.0); HEMATOCRIT 33.3 % (37.0-47.0); LYMPH # 1.9 10*3/uL (1.3-4.4); LYMPH % 17.6 % (27.0-41.0); MEAN CORPUSCULAR HGB CONC 29.4 g/dl (33.0-37.0); MEAN PLATELET VOLUME 10.4 fl (9.6-12.3); MONO # 0.8 10*3/uL (0.1-1.0); MONO % 7.4 % (3.0-9.0); NEUT # 7.5 10*3/uL (2.3-7.9); NEUT % 68.7 % (47.0-73.0); PLATELET COUNT AUTOMATED 336 10*3/uL (130-400); RED BLOOD COUNT 4.27 10*6/uL (4.10-5.10); RED CELL DISTRI WIDTH 20.4 % (0-14.5); WHITE BLOOD COUNT 10.9 10*3/uL (4.8-10.8)
[2020-07-11 06:53] LABS: ALBUMIN 2.2 gm/dl (3.1-4.5); CREATININE 1.57 mg/dL (0.55-1.02)
[2020-07-11 06:54] LABS: INTERNATIONAL NORM RATIO 4.5 (2.0-3.5)
[2020-07-11 06:55] LABS: TOTAL PROTEIN 6.5 gm/dL (6.4-8.2)
[2020-07-12] VITALS (11 sets, daily range): BP systolic 110–153; BP diastolic 58–87
[2020-07-12 07:26] LABS: INTERNATIONAL NORM RATIO 3.1 (2.0-3.5)
[2020-07-12 12:36] LABS: CREATININE 1.61 mg/dL (0.55-1.02)
[2020-07-12 12:49] LABS: POTASSIUM 5.7 mmol/L (3.5-5.1)
[2020-07-12] MEDS ORDERED: METOPROLOL SUC100 M1 PO (13:24)
[2020-07-12] MEDS ORDERED: FUROSEMIDE40 MG PO (13:24)
[2020-07-13] VITALS: BP 135/80
[2020-07-13 02:00] VITALS: BP 118/77
[2020-07-13 06:37] LABS: BASO # 0.1 10*3/uL (0.0-0.1); BASO % 0.7 % (0.0-1.0); EOS # 0.6 10*3/uL (0.0-0.4); EOS % 5.4 % (1.0-4.0); HEMATOCRIT 37.8 % (37.0-47.0); LYMPH % 18.2 % (27.0-41.0); MEAN CELL VOLUME 77.9 fl (81.0-99.0); MEAN CORPUSCULAR HGB 22.5 pg (27.0-31.0); MEAN CORPUSCULAR HGB CONC 28.8 g/dl (33.0-37.0); MEAN PLATELET VOLUME 10.1 fl (9.6-12.3); NEUT # 7.2 10*3/uL (2.3-7.9); NEUT % 65.3 % (47.0-73.0); PLATELET COUNT AUTOMATED 453 10*3/uL (130-400); RED BLOOD COUNT 4.85 10*6/uL (4.10-5.10)
[2020-07-13 06:45] LABS: INTERNATIONAL NORM RATIO 3.2 (2.0-3.5)
[2020-07-13 06:53] LABS: ALBUMIN 2.3 gm/dl (3.1-4.5); CREATININE 1.61 mg/dL (0.55-1.02); TOTAL PROTEIN 7.1 gm/dL (6.4-8.2)
[2020-07-13 06:55] LABS: POTASSIUM 4.7 mmol/L (3.5-5.1)
[2020-07-13 08:00] VITALS: BP 126/68
[2020-07-13 12:00] VITALS: BP 141/79
[2020-07-13 16:00] VITALS: BP 141/90
== END 2020-07-13 18:37 | disposition other institution (70) | DRG 871 ==
LOC: ED 08:48 → 5E 09:47 → EDHOLD 09:47 → 5E 13:17
PROVIDERS: Emergency Medicine; Family Medicine; Internal Medicine; Registered Nurse; Social Worker Clinical; ADMIT Internal Medicine; ATTEND Internal Medicine
PROC: 5A09357 Assistance with Respiratory Ventilation, Less than 24 Consecutive Hours, Continuous Positive Airway Pressure (ICD-10-PCS; principal; 2020-07-07)
PROC: 5A09357 Assistance with Respiratory Ventilation, Less than 24 Consecutive Hours, Continuous Positive Airway Pressure (ICD-10-PCS; 2020-07-08)
PROC: 5A09357 Assistance with Respiratory Ventilation, Less than 24 Consecutive Hours, Continuous Positive Airway Pressure (ICD-10-PCS; 2020-07-11)
DX: A41.9 Sepsis, unspecified organism (principal); J18.0 Bronchopneumonia, unspecified organism; N17.0 Acute kidney failure with tubular necrosis; J96.21 Acute and chronic respiratory failure with hypoxia; I13.0 Hypertensive heart and chronic kidney disease with heart failure and stage 1 through stage 4 chronic kidney disease, or unspecified chronic kidney disease; E87.2 Acidosis; N39.0 Urinary tract infection, site not specified; I50.32 Chronic diastolic (congestive) heart failure; R65.20 Severe sepsis without septic shock; N18.31 Chronic kidney disease, stage 3a; M47.812 Spondylosis without myelopathy or radiculopathy, cervical region; F32.9 Major depressive disorder, single episode, unspecified; I25.10 Atherosclerotic heart disease of native coronary artery without angina pectoris; D50.9 Iron deficiency anemia, unspecified; Z66 Do not resuscitate; E11.22 Type 2 diabetes mellitus with diabetic chronic kidney disease; E11.65 Type 2 diabetes mellitus with hyperglycemia; E78.2 Mixed hyperlipidemia; E55.9 Vitamin D deficiency, unspecified; I48.0 Paroxysmal atrial fibrillation; M06.9 Rheumatoid arthritis, unspecified; M11.20 Other chondrocalcinosis, unspecified site; E03.9 Hypothyroidism, unspecified; M54.9 Dorsalgia, unspecified; R79.1 Abnormal coagulation profile; E88.09 Other disorders of plasma-protein metabolism, not elsewhere classified; R31.29 Other microscopic hematuria; Z86.16 Personal history of COVID-19; Z51.5 Encounter for palliative care; B96.89 Other specified bacterial agents as the cause of diseases classified elsewhere; T45.515A Adverse effect of anticoagulants, initial encounter; N06.9 Isolated proteinuria with unspecified morphologic lesion; E87.5 Hyperkalemia; Z79.01 Long term (current) use of anticoagulants; Z90.49 Acquired absence of other specified parts of digestive tract; Z87.891 Personal history of nicotine dependence; Z88.1 Allergy status to other antibiotic agents; Z88.5 Allergy status to narcotic agent; Z93.3 Colostomy status; Z88.8 Allergy status to other drugs, medicaments and biological substances; Z88.2 Allergy status to sulfonamides; I25.2 Old myocardial infarction; Y92.89 Other specified places as the place of occurrence of the external cause; Z80.3 Family history of malignant neoplasm of breast; Z79.1 Long term (current) use of non-steroidal anti-inflammatories (NSAID); Z79.899 Other long term (current) drug therapy

== ENCOUNTER 2020-07-14 13:23 | Inpatient (IN) | payer MEDICARE, BC ==
[~2020-07-14] VITALS: Ht 167.6 cm; Wt 61.5 kg
[~2020-07-14 13:23] MED LIST changes: +FUROSEMIDE40 MG PO; +METOPROLOL SUC100 M1 PO; +PREDNISONE10 M1 PO
[2020-07-14 13:36] VITALS: BP 126/74
[2020-07-14 13:58] LABS: BASO # 0.1 10*3/uL (0.0-0.1); BASO % 0.4 % (0.0-1.0); EOS % 0.2 % (1.0-4.0); HEMATOCRIT 38.4 % (37.0-47.0); LYMPH # 1.9 10*3/uL (1.3-4.4); LYMPH % 11.5 % (27.0-41.0); MEAN CELL VOLUME 76.8 fl (81.0-99.0); MEAN CORPUSCULAR HGB 22.6 pg (27.0-31.0); MEAN CORPUSCULAR HGB CONC 29.4 g/dl (33.0-37.0); MEAN PLATELET VOLUME 10.3 fl (9.6-12.3); MONO # 1.3 10*3/uL (0.1-1.0); MONO % 7.7 % (3.0-9.0); NEUT # 13.4 10*3/uL (2.3-7.9); NEUT % 79.4 % (47.0-73.0); NUCLEATED RED BLOOD CELL 0.1 % (0.0-0.0); RED CELL DISTRI WIDTH 20.3 % (0-14.5); WHITE BLOOD COUNT 16.9 10*3/uL (4.8-10.8)
[2020-07-14 14:02] LABS: PLATELET COUNT AUTOMATED 626 10*3/uL (130-400)
[2020-07-14 14:14] LABS: ACT PARTIAL THROMBO TIME 41.6 SECONDS (20.0-32.1)
[2020-07-14 14:16] LABS: ALBUMIN 2.5 gm/dl (3.1-4.5); CREATININE 2.67 mg/dL (0.55-1.02); POTASSIUM 4.7 mmol/L (3.5-5.1); TOTAL PROTEIN 7.5 gm/dL (6.4-8.2)
[2020-07-14 14:18] LABS: INTERNATIONAL NORM RATIO 6.4 (2.0-3.5)
[2020-07-14 14:31] LABS: TROPONIN I 0.076 ng/ml (<0.045)
[2020-07-14 16:51] VITALS: BP 116/70
[2020-07-14 16:55] LABS: BILIRUBIN Negative (Negative); BLOOD 3+ (Negative); CLARITY Cloudy (Clear); COLOR Yellow (Yellow); GLUCOSE Negative (Negative); KETONE Negative (Negative); LEUKO ESTERASE Trace (Negative); NITRITE Negative (Negative); SPECIFIC GRAVITY 1.015 (1.001-1.030); UROBILINOGEN 0.2 E.U./dl (0.0-1.0)
[2020-07-14 17:04] LABS: BACTERIA 1+; MUCOUS 1+; RBC 21-30 rbc/hpf (0-2)
[2020-07-14 18:06] VITALS: BP 127/63
[2020-07-14 19:46] VITALS: BP 109/68
[2020-07-14 21:29] VITALS: BP 127/73
[2020-07-15 02:57] VITALS: BP 118/57
[2020-07-15 06:17] VITALS: BP 112/73
[2020-07-15 06:23] LABS: BASO # 0.1 10*3/uL (0.0-0.1); BASO % 0.3 % (0.0-1.0); EOS # 0.1 10*3/uL (0.0-0.4); EOS % 0.3 % (1.0-4.0); HEMATOCRIT 34.6 % (37.0-47.0); LYMPH # 1.6 10*3/uL (1.3-4.4); LYMPH % 9.2 % (27.0-41.0); MEAN CELL VOLUME 77.8 fl (81.0-99.0); MEAN CORPUSCULAR HGB 22.2 pg (27.0-31.0); MEAN CORPUSCULAR HGB CONC 28.6 g/dl (33.0-37.0); MEAN PLATELET VOLUME 9.8 fl (9.6-12.3); MONO # 1.2 10*3/uL (0.1-1.0); MONO % 6.9 % (3.0-9.0); NEUT # 14.5 10*3/uL (2.3-7.9); NEUT % 82.6 % (47.0-73.0); NUCLEATED RED BLOOD CELL 0.1 % (0.0-0.0); PLATELET COUNT AUTOMATED 518 10*3/uL (130-400); RED BLOOD COUNT 4.45 10*6/uL (4.10-5.10); RED CELL DISTRI WIDTH 20.2 % (0-14.5); WHITE BLOOD COUNT 17.6 10*3/uL (4.8-10.8)
[2020-07-15 06:44] LABS: ALBUMIN 2.2 gm/dl (3.1-4.5); CREATININE 2.1 mg/dL (0.55-1.02); TOTAL PROTEIN 6.5 gm/dL (6.4-8.2)
[2020-07-15 06:51] LABS: POTASSIUM 3.5 mmol/L (3.5-5.1)
[2020-07-15 08:05] LABS: INTERNATIONAL NORM RATIO 8.8 (2.0-3.5)
[2020-07-15 11:00] VITALS: BP 93/54
[2020-07-15 16:00] VITALS: BP 145/65
[2020-07-15 20:00] VITALS: BP 152/57
[2020-07-16] VITALS: BP 152/68
[2020-07-16 07:21] LABS: BASO # 0.1 10*3/uL (0.0-0.1); BASO % 0.3 % (0.0-1.0); EOS # 0.2 10*3/uL (0.0-0.4); EOS % 0.8 % (1.0-4.0); HEMATOCRIT 34.2 % (37.0-47.0); LYMPH # 1.6 10*3/uL (1.3-4.4); LYMPH % 8.6 % (27.0-41.0); MEAN CELL VOLUME 80.1 fl (81.0-99.0); MEAN CORPUSCULAR HGB 23.2 pg (27.0-31.0); MEAN CORPUSCULAR HGB CONC 28.9 g/dl (33.0-37.0); MEAN PLATELET VOLUME 9.8 fl (9.6-12.3); MONO # 1.4 10*3/uL (0.1-1.0); MONO % 7.5 % (3.0-9.0); NEUT # 15.6 10*3/uL (2.3-7.9); NEUT % 81.7 % (47.0-73.0); NUCLEATED RED BLOOD CELL 0.2 % (0.0-0.0); PLATELET COUNT AUTOMATED 537 10*3/uL (130-400); RED BLOOD COUNT 4.27 10*6/uL (4.10-5.10); WHITE BLOOD COUNT 19.1 10*3/uL (4.8-10.8)
[2020-07-16 07:45] LABS: ALBUMIN 2.3 gm/dl (3.1-4.5); CREATININE 2.11 mg/dL (0.55-1.02); POTASSIUM 3.6 mmol/L (3.5-5.1); TOTAL PROTEIN 6.7 gm/dL (6.4-8.2)
[2020-07-16 08:00] VITALS: BP 144/74
[2020-07-16 12:00] VITALS: BP 158/89
[2020-07-16 16:00] VITALS: BP 116/57
[2020-07-16 20:00] VITALS: BP 136/68
[2020-07-17] VITALS: BP 133/62
[2020-07-17 07:00] LABS: BASO # 0.1 10*3/uL (0.0-0.1); BASO % 0.5 % (0.0-1.0); EOS # 0.3 10*3/uL (0.0-0.4); EOS % 2.1 % (1.0-4.0); HEMATOCRIT 33.8 % (37.0-47.0); LYMPH % 13.7 % (27.0-41.0); MEAN CELL VOLUME 82.8 fl (81.0-99.0); MEAN CORPUSCULAR HGB CONC 27.8 g/dl (33.0-37.0); MEAN PLATELET VOLUME 10.6 fl (9.6-12.3); MONO # 1.1 10*3/uL (0.1-1.0); MONO % 7.2 % (3.0-9.0); NEUT # 11.2 10*3/uL (2.3-7.9); NEUT % 75.1 % (47.0-73.0); NUCLEATED RED BLOOD CELL 0.1 % (0.0-0.0); PLATELET COUNT AUTOMATED 593 10*3/uL (130-400); RED BLOOD COUNT 4.08 10*6/uL (4.10-5.10); RED CELL DISTRI WIDTH 20.8 % (0-14.5); WHITE BLOOD COUNT 14.9 10*3/uL (4.8-10.8)
[2020-07-17 07:10] LABS: INTERNATIONAL NORM RATIO 1.6 (2.0-3.5)
[2020-07-17 07:13] LABS: ALBUMIN 2.2 gm/dl (3.1-4.5); CREATININE 1.97 mg/dL (0.55-1.02); POTASSIUM 4.2 mmol/L (3.5-5.1); TOTAL PROTEIN 6.8 gm/dL (6.4-8.2)
[2020-07-17 08:00] VITALS: BP 136/95
[2020-07-17 12:00] VITALS: BP 113/54
[2020-07-17 20:00] VITALS: BP 109/49
[2020-07-18] VITALS: BP 111/53
[2020-07-18 07:27] LABS: HEMATOCRIT 36.2 % (37.0-47.0); MEAN CELL VOLUME 80.8 fl (81.0-99.0); MEAN CORPUSCULAR HGB CONC 28.5 g/dl (33.0-37.0); MEAN PLATELET VOLUME 9.9 fl (9.6-12.3); NUCLEATED RED BLOOD CELL 0.2 % (0.0-0.0); PLATELET COUNT AUTOMATED 482 10*3/uL (130-400); RED BLOOD COUNT 4.48 10*6/uL (4.10-5.10); RED CELL DISTRI WIDTH 21.2 % (0-14.5); WHITE BLOOD COUNT 17.2 10*3/uL (4.8-10.8)
[2020-07-18 07:36] LABS: CREATININE 1.52 mg/dL (0.55-1.02); POTASSIUM 3.4 mmol/L (3.5-5.1)
[2020-07-18 08:00] VITALS: BP 125/56
[2020-07-18 08:13] LABS: ATYPICAL LYMPHS 1 % (0-0); OVALOCYTES MANY; PLATELET SUFFICIENCY HIGH (NORMAL); SCHISTOCYTES FEW; TOTAL CELLS COUNTED 100 #CELLS
[2020-07-18 12:00] VITALS: BP 101/57
[2020-07-18 18:00] VITALS: BP 99/50
[2020-07-18 20:23] VITALS: BP 115/74
[2020-07-19] VITALS: BP 105/46
[2020-07-19 06:20] LABS: HEMATOCRIT 30.7 % (37.0-47.0); MEAN CORPUSCULAR HGB CONC 27.7 g/dl (33.0-37.0); MEAN PLATELET VOLUME 9.8 fl (9.6-12.3); NUCLEATED RED BLOOD CELL 0.1 % (0.0-0.0); PLATELET COUNT AUTOMATED 484 10*3/uL (130-400); RED CELL DISTRI WIDTH 20.7 % (0-14.5); WHITE BLOOD COUNT 16.6 10*3/uL (4.8-10.8)
[2020-07-19 06:26] LABS: INTERNATIONAL NORM RATIO 3.1 (2.0-3.5)
[2020-07-19 06:30] LABS: CREATININE 1.37 mg/dL (0.55-1.02); POTASSIUM 3.6 mmol/L (3.5-5.1)
[2020-07-19 07:13] LABS: BASOPHILS 1 % (0-1); BURR CELLS MODERATE; PLATELET SUFFICIENCY HIGH (NORMAL); POLYCHROMASIA SLIGHT; TOTAL CELLS COUNTED 100 #CELLS; TOXIC GRANULATION SLIGHT
[2020-07-19 07:14] LABS: OVALOCYTES MODERATE; SCHISTOCYTES FEW
[2020-07-19 08:00] VITALS: BP 98/60
[2020-07-19 12:00] VITALS: BP 90/52
[2020-07-19] MEDS ORDERED: MIRTAZAPINE15 M2 PO (12:23)
[2020-07-19] MEDS ORDERED: DOXYCYCLINE MO100 M1 PO (12:23)
== END 2020-07-19 15:07 | disposition other institution (70) | DRG 871 ==
LOC: ED 13:23 → EDHOLD 14:43 → 5E 14:43
PROVIDERS: Emergency Medicine; Internal Medicine; Student in an Organized Health Care Education/Training Program; ADMIT Emergency Medicine; ATTEND Emergency Medicine
DX: A41.9 Sepsis, unspecified organism (principal); N17.0 Acute kidney failure with tubular necrosis; I21.4 Non-ST elevation (NSTEMI) myocardial infarction; E43 Unspecified severe protein-calorie malnutrition; J18.9 Pneumonia, unspecified organism; K57.91 Diverticulosis of intestine, part unspecified, without perforation or abscess with bleeding; J96.11 Chronic respiratory failure with hypoxia; I50.32 Chronic diastolic (congestive) heart failure; F33.1 Major depressive disorder, recurrent, moderate; I13.0 Hypertensive heart and chronic kidney disease with heart failure and stage 1 through stage 4 chronic kidney disease, or unspecified chronic kidney disease; N18.4 Chronic kidney disease, stage 4 (severe); R65.20 Severe sepsis without septic shock; Z51.5 Encounter for palliative care; Z66 Do not resuscitate; R79.1 Abnormal coagulation profile; E03.9 Hypothyroidism, unspecified; I25.10 Atherosclerotic heart disease of native coronary artery without angina pectoris; E86.0 Dehydration; D47.3 Essential (hemorrhagic) thrombocythemia; D72.810 Lymphocytopenia; M06.9 Rheumatoid arthritis, unspecified; M81.0 Age-related osteoporosis without current pathological fracture; M54.5 Low back pain; G89.29 Other chronic pain; M11.20 Other chondrocalcinosis, unspecified site; I48.0 Paroxysmal atrial fibrillation; K58.9 Irritable bowel syndrome, unspecified; E78.5 Hyperlipidemia, unspecified; E11.42 Type 2 diabetes mellitus with diabetic polyneuropathy; E11.65 Type 2 diabetes mellitus with hyperglycemia; D50.9 Iron deficiency anemia, unspecified; E11.22 Type 2 diabetes mellitus with diabetic chronic kidney disease; E83.41 Hypermagnesemia; Z93.3 Colostomy status; Z90.49 Acquired absence of other specified parts of digestive tract; Z80.3 Family history of malignant neoplasm of breast; Z68.21 Body mass index [BMI] 21.0-21.9, adult; Z88.2 Allergy status to sulfonamides; Z88.8 Allergy status to other drugs, medicaments and biological substances; Z88.1 Allergy status to other antibiotic agents; Z82.49 Family history of ischemic heart disease and other diseases of the circulatory system